=== PATIENT | female | born 1955 | race Caucasian/White ===

== ENCOUNTER 2020-07-21 22:00 | Emergency (ER) | payer MEDICARE, MEDICAID, SELFPAY ==
--- NOTE | ~2020-07-21 | CT_ITS ---
EXAMINATION: CT ANGIOGRAM NECK WITH CONTRAST CT ANGIOGRAM BRAIN WITH CONTRAST CLINICAL INFORMATION: Left-sided weakness. COMPARISON: None. TECHNIQUE: Test bolus sequences followed by intravenous administration 70 mL of Omnipaque 350. Helical imaging was performed in the axial plane from the thoracic inlet to the skull vertex. Delayed postcontrast imaging of the head was also performed. The data was processed at the photonics engineering technologist workstation for generation of MIP sequences. Angled MIPs and volume rendered reformatted images were also generated at an offline 3D workstation. Stenoses are assessed in accordance with NASCET criteria unless otherwise indicated. This CT examination was performed using dose optimization techniques as appropriate, variously including the following: *Automated exposure control *Adjustment of mA and/or kV according to patient size (this includes techniques or standardized protocols for targeted exams where dose is matched to indication/reason for exam; i.e. extremities or head) *Use of iterative reconstruction technique DLP: 1835 mGy-cm FINDINGS: Head CT: There is hypoattenuation in the right inferior cerebellum compatible with evolving infarct. Additional area of hypoattenuation is seen in the right posterior parietotemporal region. Background changes of chronic microangiopathy are seen in the cerebral white matter. There is no abnormal enhancement. 534 intensity The visualized paranasal sinuses and mastoid air cells are clear. Neck CTA: The main pulmonary artery is dilated compatible pulmonary arterial hypertension. The aortic arch and great vessel origins are patent. The common carotid arteries are difficult to evaluate due to significant motion artifact in addition to photon starvation artifact. The common carotid arteries appear grossly patent and are retropharyngeal in course. The carotid bifurcations are not well evaluated however, the cervical internal carotid arteries are patent along their cervical course. The lower portions of the vertebral arteries are not well evaluated however, more superiorly, the vertebral arteries are patent. Head CTA: No proximal vessel occlusion is seen. A small focus of thrombotic occlusion is seen within the distal right M2 segment (series 7 image 236). MCA collaterals otherwise appear symmetric. The ACAs appear patent. Both vertebral arteries and basilar artery appear normal. The aluminum siding installer appear normal. The right anterior inferior cerebellar artery is not well opacified. No aneurysm is seen. Non-vascular findings: The cervical soft tissues are grossly within normal limits. Multilevel degenerative changes are seen within the spine. There is no consolidation the upper lungs. A prominent right suprahilar lymph node is seen. CT/CT angio head neck stroke IMPRESSION: Evolving acute infarct in the right inferior cerebellum and in the right posterior parietal temporal lobe, better seen on the noncontrast head CT performed just prior. No large vessel occlusion is seen. A small focus of occlusion is seen involving the right distal M2 segment. The right anterior inferior cerebellar artery is not definitively opacified. This critical result was discussed with Dr. Griffiths on 07/21/2020 11:12 PM, and it was ascertained that the content and urgency of the report was understood at the time of direct communication.
--- NOTE | ~2020-07-21 | XR_ITS ---
EXAMINATION: XR CHEST CLINICAL INFORMATION: Shortness of breath COMPARISON: None TECHNIQUE: Frontal view of the chest was obtained. FINDINGS: The lungs are hyperinflated. There are mild, somewhat streaky opacities towards the bilateral lung bases. No evidence of pneumothorax or significant pleural effusion. The bilateral vignesh are prominent suspicious for dilated pulmonary arteries. Cardiac silhouette is mildly enlarged. Calcification is present at the aortic arch. No acute osseous findings are seen. XR/XR chest 1V IMPRESSION: Prominent central pulmonary vasculature suspicious for pulmonary hypertension. Mild streaky bibasilar opacities suggestive of subsegmental atelectasis.
--- NOTE | ~2020-07-21 | CT_ITS ---
EXAMINATION: CT HEAD WITHOUT CONTRAST (STROKE PROTOCOL) CLINICAL INFORMATION: Stroke protocol. Left-sided weakness COMPARISON: None TECHNIQUE: Contiguous axial imaging was performed from the skull base to vertex without intravenous administration of contrast. This CT examination was performed using dose optimization techniques as appropriate, variously including the following: *Automated exposure control. *Adjustment of mA and/or kV according to patient size (this includes techniques or standardized protocols for targeted exams where dose is matched to indication/reason for exam; i.e. extremities or head). *Use of iterative reconstruction technique. DLP: 934 mGy-cm FINDINGS: There is no evidence of acute intracranial hemorrhage, midline shift or mass effect. Focal area of loss of llanes-white matter differentiation is noted in the right posterior parietal occipital lobe and probably also involving the right temporal lobe. Focal area of hypoattenuation is noted in the right cerebellar hemisphere. There is probable somewhat hyperdense appearance of the distal M2 segment. The ventricles and cortical sulci are age-appropriate. No evidence of abnormal extra-axial fluid collection. The osseous calvarium is intact. The visualized paranasal sinuses are unremarkable. The calvarial soft tissues are unremarkable. CT/CT head for stroke IMPRESSION: 1. Findings highly concerning for right MCA and right anterior-inferior cerebellar artery territory. No evidence of significant mass effect at this time. No evidence of acute intracranial hemorrhage or midline shift. 2. CTA of the head and neck performed at the same time demonstrate occlusions of right MCA at the junction of M2 and M3 segment and right anterior-inferior cerebellar artery. The CTA head and neck will be reported separately. This critical result was discussed with Dr. Griffiths at 10:37 PM hours on 07/21/2020. It was ascertained that the content and urgency of the report was understood at the time of direct communication.
--- NOTE | 2020-07-21 22:07 | ECG_ITS ---
Test Reason : ?STROKE Blood Pressure : / mmHG Vent. Rate : 098 BPM Atrial Rate : 098 BPM P-R Int : 124 ms QRS Dur : 084 ms QT Int : 360 ms P-R-T Axes : 077 210 -53 degrees QTc Int : 459 ms Normal sinus rhythm Right superior axis deviation T wave abnormality, consider lateral ischemia Abnormal ECG No previous ECGs available Referred By: Luba Griffiths Electronically Signed By:FAVIOLA LLAMAS
[2020-07-21 22:12] LABS: Glucose, Whole Blood 104 mg/dL (60-115)
[2020-07-21 22:23] VITALS: BP 210/100
--- NOTE | 2020-07-21 22:27 | PC.NURSE ---
THIS RN SPOKE WITH PT'S SON, HE REPORTS HE WENT TO PT'S HOUSE, HE LIVES NEXT DOOR TO HER, TO CHECK ON HER AND HE FOUND HER ON THE FLOOR AROUND 2000 TONIGHT, UNKNOWN DOWNTIME. PT'S SON UNABLE TO GET HER OFF FLOOR, ATTEMPTED TO GET HELP TO LIFT HER AND COULD NOT, SO CALLED EMS. PER SON PT WAS COMPLAINING OF LE NUMBNESS, NOT SPECIFIC TO EITHER EXTREMITY. PTS SON REPORTS LAST SEEING PT YESTERDAY AROUND SAME TIME, STS SHE WAS GROGGY, NOT WITH IT , NOT EATING, AND ACTING OFF . SON ALSO REPORTS PT HAD A SERIOUS FALL X1 MONTH AGO BUT DID NOT SEEK MEDICAL ATTENTION.
--- NOTE | 2020-07-21 22:36 | ED_ITS ---
HPI - Neuro Symptoms/Deficit General Chief Complaint: Stroke Stated Complaint: weakness Time Seen by Provider: 07/21/20 22:06 History of Present Illness HPI Narrative: Patient is a 64-year-old female with a history diabetes, hypertension, smoking. Patient has been lost to the healthcare system for the last 10 years. Currently not taking any medication. Presented today with having sudden onset of left-sided weakness. Worse in the arm. Also paramedics noted a facial droop. Patient sent in for further evaluation. We are unsure the exact time of onset. When asked when the symptoms started. She said after she fell. When asked if she is aware when she fell we got multiple answers. Anywhere from 15:00 to 20:00. No revisit her until approximately 20:00 when the son arrived found her on the ground. They attempted to lift her up and found her to have weakness on the left side. Patient denies any chest pain shortness of breath. No coughing or congestion or upper respiratory symptoms. Patient noncompliant with medication. Patient's case discussed with [facility] for possible clot retrieval. Given the CTA finding. [facility] patient not a good candidate. Bon gagnon's case discussed with neuro radiology from [facility]. Neural radiologist at [facility] called back now he can see a M2 M3 lesion in the right MCA. The finding was relayed to Interventional neural Radiology at [facility]. . Patient to be transferred. A CD of the images will be provided. Patient is currently in critical condition. Related Data Allergies Allergy/AdvReac Type Severity Reaction Status Date / Time No Known Allergies Allergy Verified 07/21/20 22:06 Review of Systems Review of Systems: Constitutional: No Weight loss, No Fever, No Chills, No Night Sweats, No Fatigue, No Malaise ENT/Mouth: No Hearing loss, No Ear Pain, No Nasal Congestion, No Sinus Pain, No Hoarseness, No sore throat, No Rhinorrhea, No Swallowing Difficulty Eyes: No Eye Pain, No Swelling, No Redness, No Foreign Body, No Discharge, No Vision Changes Cardiovascular: No Chest Pain, No SOB, No Dyspnea on Exertion, No Orthopnea, No Edema, No Palpitations Respiratory: No Cough, No Sputum, No Wheezing, No Smoke Exposure, No Dyspnea Gastrointestinal: No Nausea, No Vomiting, No Diarrhea, No Constipation, No abdominal Pain, No Hematochezia, No Melena Genitourinary: no irregular bleeding, No Dysuria, No Urinary Frequency, No Hematuria, No Urinary Incontinence, No Urgency, No Flank Pain, No Urinary Flow Changes, No Hesitancy Musculoskeletal: No joint pain, No Myalgias, No Joint Swelling Skin: No Skin Lesions, No rash Neuro: Positive weakness on the left side Dizziness, No Headache Psych: No Anxiety/Panic, No Depression, No SI/HI/AH/VH, No Social Issues, Heme/Lymph: No Bruising, No Bleeding,No Lymphadenopathy Endocrine: No Polyuria, No Polydipsia, No Temperature Intolerance [facility] Past Medical History Medical History (Updated 07/21/20 @ 23:19 by Luba Griffiths MD) Diabetes HTN (hypertension) Thyroid nodule Social History Social History Advance Directives: No Advance Directives Information Provided: Yes Physical Exam 2 Vital Signs: Vital Signs: Last Vital Signs Temp 97.7 F 07/21/20 22:43 Pulse 98 07/21/20 22:43 Resp 28 H 07/21/20 22:43 BP 128/87 07/21/20 22:43 Pulse Ox 97 07/21/20 22:50 Body Mass Index 63.7 Appearance: Alert. Oriented X3. No acute distress. Eyes: Pupils equal, round and reactive to light. ENT: Pharynx normal. Neck: Normal inspection. Neck supple. No lymph nodes noted. No crepitus CVS: Normal heart rate and rhythm. Pulses normal. Normal S1 and S2 Respiratory: No respiratory distress. Breath sounds normal. No Wheezing. No rales Abdomen: Soft and nontender. No rigidity. No distention. good BS x4 Skin: Skin warm and dry. Normal skin color. Normal skin turgor. Extremities: No lower extremity edema. Neurovascular intact to all extremities. No Lacerations. No Rash Neuro: Oriented X 3. Significant left arm weakness. Unable to lift up arm against gravity. There is hand grasp. Patient has a left facial droop. Lower extremity approximately equal in strength. No sensory deficit. No slurred speech MDM - Neuro Symptoms/Deficit MDM Narrative Medical decision making narrative: CT scan of the head was grossly negative for any acute evidence of bleeding. Because we are unsure patient's time of onset anywhere from 3-10 p.m.. A PUC to be p.m. time scale. Patient is out of the window for tPA. Patient CTA was done as she has significant weakness in the left upper extremity consistent with an MCA stroke on the right. The CTA is currently pending. Lab Data Result diagrams: 07/21/20 22:40 07/21/20 22:40 Labs: Lab Results 07/21/20 07/21/20 07/21/20 Range/Units 22:04 22:40 22:40 WBC 11.5 H (4.8-10.8) X10*3/uL RBC 6.11 H (4.20-5.50) X10*6/uL Hgb 17.5 H (12.0-16.0) g/dl Hct 58.3 H (37-47) % MCV 95.4 (80-98) fL MCH 28.6 (27.0-33.0) pg MCHC 30.0 L (31.0-35.0) g/dl RDW 15.1 (11.0-16.0) % Plt Count 189 (160-400) X10*3/uL MPV 9.8 (9.4-12.3) fL Immature Gran % (Auto) 0.3 (0.0-0.4) % Neut % (Auto) 77.5 H (45-73) % Lymph % (Auto) 9.0 L (20-40) % Bland % (Auto) 12.5 H (2-11) % Eos % (Auto) 0.4 (0-4) % Baso % (Auto) 0.3 (0-2) % Lymph # (Auto) 1.0 L (1.2-4.9) X10*3/uL Bland # (Auto) 1.4 H (0.1-1.2) X10*3/uL Eos # (Auto) 0.1 (0.0-0.4) X10*3/uL Baso # (Auto) 0.0 (0.0-0.2) X10*3/uL Abs Immat Gran (auto) 0.03 (0.00-0.03) X10*3/uL Absolute Neuts (auto) 8.9 H (2.0-8.3) X10*3/uL Absolute Nucleated RBC 0.000 (0.0-0.012) X10*3/uL Nucleated RBC % (auto) 0.0 (0.0-0.2) /100WBC Sodium 142 (135-145) mmol/L Potassium 4.2 (3.3-5.1) mmol/L Chloride 101 (96-108) mmol/L Carbon Dioxide 33 H (22-29) mmol/L Anion Gap 12 (12-20) BUN 15 (9-16) mg/dL Creatinine 1.07 (0.5-1.4) mg/dL Estim Creat Clear Calc 71.6 Estimated GFR 51 POC Glucose 104 (60-115) mg/dL Random Glucose 117 H (60-115) mg/dL Calcium 9.3 (8.4-10.2) mg/dL Magnesium 1.9 (1.6-2.6) mg/dL Total Creatine Kinase 148 H (26-140) U/L COVID-19 (EVELINA) (Negative) COVID-19 Clin Com 07/21/20 Range/Units 22:41 WBC (4.8-10.8) X10*3/uL RBC (4.20-5.50) X10*6/uL Hgb (12.0-16.0) g/dl Hct (37-47) % MCV (80-98) fL MCH (27.0-33.0) pg MCHC (31.0-35.0) g/dl RDW (11.0-16.0) % Plt Count (160-400) X10*3/uL MPV (9.4-12.3) fL Immature Gran % (Auto) (0.0-0.4) % Neut % (Auto) (45-73) % Lymph % (Auto) (20-40) % Bland % (Auto) (2-11) % Eos % (Auto) (0-4) % Baso % (Auto) (0-2) % Lymph # (Auto) (1.2-4.9) X10*3/uL Bland # (Auto) (0.1-1.2) X10*3/uL Eos # (Auto) (0.0-0.4) X10*3/uL Baso # (Auto) (0.0-0.2) X10*3/uL Abs Immat Gran (auto) (0.00-0.03) X10*3/uL Absolute Neuts (auto) (2.0-8.3) X10*3/uL Absolute Nucleated RBC (0.0-0.012) X10*3/uL Nucleated RBC % (auto) (0.0-0.2) /100WBC Sodium (135-145) mmol/L Potassium (3.3-5.1) mmol/L Chloride (96-108) mmol/L Carbon Dioxide (22-29) mmol/L Anion Gap (12-20) BUN (9-16) mg/dL Creatinine (0.5-1.4) mg/dL Estim Creat Clear Calc Estimated GFR POC Glucose (60-115) mg/dL Random Glucose (60-115) mg/dL Calcium (8.4-10.2) mg/dL Magnesium (1.6-2.6) mg/dL Total Creatine Kinase (26-140) U/L COVID-19 (EVELINA) Negative (Negative) COVID-19 Clin Com See Note ECG Data Interpretation: Sinus pattern heart rate is 100 OK QRS QT within normal limits there is nonspecific diffuse T-wave flattening noted NIH Stroke Scale Internal: Initial- Upon Arrival Level of Consciousness: Alert Level of Consciousness Questions: Answers both questions correctly Level of Consciousness Commands: Performs both tasks correctly Best Gaze: Normal Visual: Partial hemianopia Facial Palsy: Normal Motor Arm (Right): No drift Motor Arm (Left): No effort against gravity Motor Leg (Right): No drift Motor Leg (Left): No drift Limb Ataxia: Present in one limb Sensory: Normal Best Language: No aphasia Dysarthia: Normal Extinction and Inattention: No abnormality Score: 5 Critical Care Time Critical Care Time Total Critical Care Time: 40 Attestation: I have personally provided 40 minutes of critical care time exc lusive of time spent on separately billable procedures. Time includes review of lab data, radiology results, discussion with consultants, and monitoring for potential decompensation. Interventions were performed as documented above Discharge Plan Discharge Clinical Impression: Cerebrovascular accident Patient Disposition: [facility] Transfer Details: Transfer to [facility]
[2020-07-21 22:43] VITALS: BP 128/87; PULSE 98; RESP 28; TEMP 36.5; O2SAT 63; BMI 63.7
[2020-07-21 22:47] LABS: MANUAL DIFF FLAG NO
[2020-07-21 22:48] LABS: Basophils Percent Auto 0.3 % (0-2); Eosinophils Absolute Auto 0.1 X10*3/uL (0.0-0.4); Eosinophils Percent Auto 0.4 % (0-4); Hemoglobin 17.5 g/dl (12.0-16.0); Imm Gran Abs Auto 0.03 X10*3/uL (0.00-0.03); Imm Gran Pct Auto 0.3 % (0.0-0.4); Mean Corpuscular Hemoglobin 28.6 pg (27.0-33.0); Mean Corpuscular Volume 95.4 fL (80-98); Mean Platelet Volume 9.8 fL (9.4-12.3); Monocytes Absolute Auto 1.4 X10*3/uL (0.1-1.2); Monocytes Percent Auto 12.5 % (2-11); Neutrophils Absolute Auto 8.9 X10*3/uL (2.0-8.3); Neutrophils Percent Auto 77.5 % (45-73); Platelet Count 189 X10*3/uL (160-400); Red Blood Count 6.11 X10*6/uL (4.20-5.50); Red Cell Distribution Width 15.1 % (11.0-16.0); White Blood Count 11.5 X10*3/uL (4.8-10.8)
[2020-07-21 22:49] LABS: Hematocrit 58.3 % (37-47)
[2020-07-21 22:50] VITALS: O2SAT 97
[2020-07-21 23:05] LABS: COVID-19 Test Negative (Negative); IDNOW Serial# 9DD0AD1C
[2020-07-21 23:12] LABS: Anion Gap 12 (12-20); Blood Urea Nitrogen 15 mg/dL (9-16); Calcium 9.3 mg/dL (8.4-10.2); Carbon Dioxide 33 mmol/L (22-29); Chloride 101 mmol/L (96-108); Creatinine Clr Calc Pharmacy 71.6; Estimated Glomerular Filt Rate 51; Glucose Random 117 mg/dL (60-115); Magnesium 1.9 mg/dL (1.6-2.6); Potassium 4.2 mmol/L (3.3-5.1); Sodium 142 mmol/L (135-145)
--- NOTE | 2020-07-21 23:14 | PC.NURSE ---
@[phone] dr singh request another call out to [facility] interventionalist, tx line called and nicolas said they were going to put the page out @[phone] [facility] tx line calls back and asks tos speak with dr francisco singh says this pt is accepted @ the er and to call ambulance for tx
[2020-07-21 23:23] LABS: Troponin-I High Sensitivity 174.3 ng/L (<3.5-17.0)
[2020-07-21 23:28] LABS: Prothrombin Time Whole Bld POC 14.9 sec (11.1-13.5); ~PT, ~INR - Anti Coag Clinic 1.2 (0.9-1.1)
[2020-07-21 23:28] LABS: Glucose Urine UA NEG (NEG); Leukocyte Esterase Urine 2+ (NEG); Nitrite Urine POS (NEG); UACC Culture Trigger YES; Urine Blood 2+ (NEG); Urine Ketones NEG (NEG); Urine Protein 2+ MG/DL (NEG-TRACE)
[2020-07-21 23:32] LABS: Appearance Urine HAZY; Color Urine YELLOW
[2020-07-21 23:34] VITALS: BP 162/106; PULSE 98; RESP 23; TEMP 37; O2SAT 100
[2020-07-21 23:35] LABS: WBC Urine 30-49 /HPF (0-4)
[2020-07-21 23:36] LABS: Bacteria Urine 3+ /LPF; Squamous Epithelial Cell Urine 1+ /LPF
[2020-07-21 23:39] VITALS: BP 143/87; PULSE 77; RESP 18; TEMP 36.6; O2SAT 96
== END 2020-07-21 23:50 | disposition short-term general hospital (02) ==
PROVIDERS: Emergency Provider Emergency Medicine Emergency Medical Services
DX: I63.9 Cerebral infarction, unspecified (principal); R53.1 Weakness; R29.705 NIHSS score 5; Z20.822 Contact with and (suspected) exposure to COVID-19; E11.9 Type 2 diabetes mellitus without complications; I10 Essential (primary) hypertension; F17.210 Nicotine dependence, cigarettes, uncomplicated; Z91.14 Patient's other noncompliance with medication regimen
CPT/HCPCS: 36415; 70450; 70496; 70498; 71045; 80048; 81001; 81003; 82550; 82947; 83735; 84484; 85025; 85610; 87086; 87088; 87186; 87635; 93005; 99285; 99291

== ENCOUNTER 2020-11-03 09:09 | Inpatient (IN) | payer MEDICARE, MEDICAID, SELFPAY ==
[2020-11-03] VITALS (8 sets, daily range): BP systolic 118–166; BP diastolic 49–73; PULSE 76–100; RESP 18–28; TEMP 35.8–37.1; O2SAT 90–97; BMI 52.9
--- NOTE | ~2020-11-03 | CT_ITS ---
EXAMINATION: CT ABDOMEN AND PELVIS WITHOUT CONTRAST CLINICAL INFORMATION: Blood loss and abdominal pain COMPARISON: None TECHNIQUE: Multidetector volumetric imaging was performed from the superior aspect of the liver through the pubic symphysis. Sagittal and coronal reformatted images were obtained on the technologist's workstation. This CT examination was performed using dose optimization techniques as appropriate, variously including the following: *Automated exposure control *Adjustment of mA and/or kV according to patient size (this includes techniques or standardized protocols for targeted exams where dose is matched to indication/reason for exam; i.e. extremities or head) *Use of iterative reconstruction technique DLP: 1438 mGy-cm FINDINGS: LUNG BASES: Small bilateral pleural effusions with adjacent compressive atelectasis at the posterior, dependent portions of the lower lobes. LIVER, GALLBLADDER, AND BILIARY TREE: The liver is normal in size, shape, and attenuation. No focal hepatic lesion or biliary ductal dilatation is present. Thin calcification lines portions of the gallbladder wall. The gallbladder is well-distended without evidence of wall thickening or pericholecystic inflammatory changes. PANCREAS: Unremarkable. SPLEEN: Unremarkable. ADRENAL GLANDS: Unremarkable. KIDNEYS AND URETERS: Atrophic appearance of the right kidney with areas of cortical thinning. Suspect underlying low-density lesions also associated with the right kidney although the noncontrast technique limits assessment. Normal size of the left kidney with a lobulated surface contour, also suggesting possible underlying cystic lesions. Moderate left perinephric stranding. No evidence of hydronephrosis or hydroureter bilaterally. BLADDER: Unremarkable. GASTROINTESTINAL TRACT: Large stool ball within the rectal vault. Large stool burden throughout the entirety of the colon. Prominent submucosal fat deposition within the cecum suggestive of chronic inflammation. The appendix is unremarkable. No evidence of bowel obstruction. ABDOMINAL WALL: Areas of soft tissue density within the fat involving the anterior abdominal wall, possibly injection sites. Diastases rectus. No significant body wall hernia. Body wall edema. LYMPH NODES: No lymphadenopathy within the abdomen or pelvis by CT criteria. VASCULAR: Atherosclerosis abdominal aorta without evidence of aneurysm. The IVC is singular and right-sided. PELVIC VISCERA: There is an intrauterine device in place. Trace pelvic free fluid at the presacral space. OSSEOUS STRUCTURES: No acute or suspicious osseous abnormality. CT/CT abdomen pelvis wo con IMPRESSION: 1. No acute findings within the abdomen or pelvis. No intra-abdominal or pelvic hematomas. 2. Evidence of third spacing. 3. Constipation and possible fecal impaction at the level of the rectum. 4. Moderate left perinephric stranding of uncertain etiology. The right kidney is atrophic. Possible underlying low-density lesions within the renal cortices, however noncontrast technique limits assessment. Consider follow-up with renal ultrasound for further assessment. 5. 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 This is a risk factor for the development of gallbladder malignancy. 6. Possible volume overload with small pleural effusions, body wall edema and trace pelvic free fluid. 7. Other chronic and nonacute findings as above.
--- NOTE | ~2020-11-03 | XR_ITS ---
EXAMINATION: XR CHEST CLINICAL INFORMATION: SOB COMPARISON: None TECHNIQUE: Frontal view of the chest was obtained. FINDINGS: There is mild cardiomegaly. Pulmonary vascularity is normal. There is patchy opacity left lung base with left pleural effusion or thickening. Rest of the lungs are clear. No gross bony abnormality seen. XR/XR chest 1V IMPRESSION: Patchy opacity left lung base likely atelectasis. There is blunting of left CP angle from pleural thickening or pleural effusion.
--- NOTE | ~2020-11-03 | CT_ITS ---
EXAMINATION: CTA CHEST PE STUDY CLINICAL INFORMATION: r/o pulm embolism, sob COMPARISON: Abdominal film earlier today TECHNIQUE: Prior to contrast administration, noncontrast localization images were obtained. After the administration of 84 mL of Omnipaque 350 IV contrast, contiguous thin slice helical images were obtained through the thorax. Reformatted MIP images in the coronal and sagittal planes were obtained at the acquisition workstation. This CT examination was performed using dose optimization techniques as appropriate, variously including the following: *Automated exposure control *Adjustment of mA and/or kV according to patient size (this includes techniques or standardized protocols for targeted exams where dose is matched to indication/reason for exam; i.e. extremities or head) *Use of iterative reconstruction technique DLP: 594 mGy-cm. FINDINGS: The bolus timing on this study was acceptable for visualization of the pulmonary arterial tree. There are no intraluminal pulmonary arterial filling defects present to suggest acute pulmonary embolism. The lungs are clear patient of the lung parenchyma is limited due to body habitus and motion. There is dependent atelectasis and/or consolidation at the lung bases. Areas of mosaic perfusion are present more so in the upper lobes. No dense consolidation otherwise. Small bilateral pleural effusions. There is no evidence for pneumothorax. The heart is normal in size. No evidence of ventricular septal bowing or right heart strain. Great vessels are normal. Otherwise the mediastinum is unremarkable. There is no pericardial effusion or pericardial thickening. Limited evaluation of the upper abdominal viscera demonstrates a distended gallbladder but is seen on the dedicated abdominal CT scan from earlier today. CT/CT angio chest PE protocol IMPRESSION: No evidence for acute pulmonary emboli. Mosaic perfusion and basilar dependent atelectatic change. VTE: Negative
--- NOTE | 2020-11-03 10:02 | ECG_ITS ---
Test Reason : DYSPNEA Blood Pressure : / mmHG Vent. Rate : 088 BPM Atrial Rate : 088 BPM P-R Int : 126 ms QRS Dur : 094 ms QT Int : 398 ms P-R-T Axes : 086 072 046 degrees QTc Int : 481 ms Normal sinus rhythm T wave abnormality, consider anterior ischemia Prolonged QT Abnormal ECG When compared with ECG of 21-JUL-2020 22:42, Questionable change in QRS axis T wave inversion no longer evident in Inferior leads Nonspecific T wave abnormality, worse in Lateral leads Referred By: Luba Griffiths Electronically Signed By:MAX WEEMS
--- NOTE | 2020-11-03 10:28 | ED_ITS ---
HPI - SOB/Dyspnea General Chief Complaint: Dyspnea Stated Complaint: SOB,LOW O2SAT IN THE 80'S PER EMS FROM SN[facility] Time Seen by Provider: 11/03/20 09:29 History of Present Illness HPI Narrative: Patient is a 64-year-old female with a history of COPD. History of CVA. Patient is already immunized for COVID. Has a history of baseline stroke. Patient is unable to move her left side. Presented today because detention wants her to be evaluated for additional help for psychiatric reasons. Patient states that she does not want a live no more. Patient baseline is on 2 L of oxygen at home. Noted by EMS to have a low oxygenation. On EMS arrival patient was not on oxygen. No coughing or congestion or upper respiratory symptoms. No diaphoresis. No new leg swelling. Positive chronic leg wound to the right leg. No diaphoresis. Patient claims she is always short of breath. Not any more than usual. Patient is from home Related Data Home Medications Medication Instructions Recorded Confirmed albuterol sulfate 90 mcg/actuation 2 puff INHALATION Q4-6H PRN 11/03/20 11/03/20 aerosol inhaler (ProAir HFA) ascorbic acid (vitamin C) 500 mg 250 mg PO DAILY 11/03/20 11/03/20 tablet (Vitamin C) cetirizine 1 mg/mL oral solution 5 mg PO DAILY PRN 11/03/20 11/03/20 melatonin 5 mg tablet 5 mg PO BEDTIME PRN 11/03/20 11/03/20 multivitamin 1 tab PO DAILY 11/03/20 11/03/20 olanzapine 2.5 mg tablet 2.5 mg PO BEDTIME 11/03/20 11/03/20 ondansetron 8 mg disintegrating 8 mg PO DAILY PRN 11/03/20 11/03/20 tablet polyethylene glycol 3350 17 gram 17 g PO DAILY 11/03/20 11/03/20 oral powder packet (Miralax) sennosides 8.6 mg tablet (senna) 17.2 mg PO BEDTIME 11/03/20 11/03/20 warfarin 1 mg tablet 7 mg PO DAILY 11/03/20 11/03/20 Allergies Allergy/AdvReac Type Severity Reaction Status Date / Time No Known Allergies Allergy Verified 07/21/20 22:06 Review of Systems Review of Systems: Positive shortness of breath PMFSH Past Medical History Attestation statement: The following information was validated with the patient. Medical History Diabetes HTN (hypertension) Thyroid nodule Social History Social History Advance Directives: Yes Advance Directives on File: No Physical Exam Vital Signs: Vital Signs: Last Vital Signs Temp 97.8 F 11/03/20 15:09 Pulse 81 11/03/20 15:09 Resp 18 11/03/20 15:09 BP 166/71 H 11/03/20 15:09 Pulse Ox 97 11/03/20 15:09 Oxygen Flow Rate 4 11/03/20 09:19 Body Mass Index 52.9 Appearance: Alert. Oriented X3. No acute distress. Eyes: Pupils equal, round and reactive to light. ENT: Pharynx normal. Neck: Normal inspection. Neck supple. No lymph nodes noted. No crepitus CVS: Normal heart rate and rhythm. Pulses normal. Normal S1 and S2 Respiratory: No respiratory distress. Diminished breath sounds bilaterally. No Wheezing. No rales. Abdomen: Soft and nontender. No rigidity. No distention. good BS x4 Skin: Skin warm and dry. Normal skin color. Normal skin turgor. Extremities: 2+ pitting edema. Neurovascular intact to all extremities. No La cerations. Wound VAC in place in right leg. Neuro: Oriented X 3. No motor deficit. No sensory deficit. Moving all extermities. No slurred speech MDM - SOB/Dyspnea MDM Narrative Medical decision making narrative: Patient's hemoglobin dropped from 17 to approximately 9. Question etiology. Rectal exam showed brown stool that was heme-negative. CT scan of the abdomen did not show any acute fluid collection. The abdomen exam is soft. Question etiology. Question secondary to hemoconcentration. Patient's COVID test is negative. Chest x-ray did not show any large focal infiltrate. Her BNP is elevated but approximately baseline. No evidence for congestive heart failure. Question mild COPD. Patient baseline is on 2 L of oxygen now requiring 4 L of oxygen satting 90%. Will admit patient for further evaluation of the change in hemoglobin. Patient will require psychiatric evaluation as well. Lactate is 0.6 is no evidence for sepsis. Patient is to be admitted. Lab Data Result diagrams: 11/03/20 13:56 11/03/20 10:42 Labs: Lab Results 11/03/20 11/03/20 11/03/20 Range/Units 10:24 10:42 10:42 WBC 7.0 (4.8-10.8) X10*3/uL RBC 3.88 L D (4.20-5.50) X10*6/uL Hgb 9.1 L D (12.0-16.0) g/dl Hct 32.9 L D (37-47) % MCV 84.8 (80-98) fL MCH 23.5 L (27.0-33.0) pg MCHC 27.7 L (31.0-35.0) g/dl RDW 18.2 H (11.0-16.0) % Plt Count 271 D (160-400) X10*3/uL MPV 9.1 L (9.4-12.3) fL Immature Gran % (Auto) 0.3 (0.0-0.4) % Neut % (Auto) 64.7 (45-73) % Lymph % (Auto) 22.2 (20-40) % Baldwin % (Auto) 11.4 H (2-11) % Eos % (Auto) 1.0 (0-4) % Baso % (Auto) 0.4 (0-2) % Lymph # (Auto) 1.5 (1.2-4.9) X10*3/uL Baldwin # (Auto) 0.8 (0.1-1.2) X10*3/uL Eos # (Auto) 0.1 (0.0-0.4) X10*3/uL Baso # (Auto) 0.0 (0.0-0.2) X10*3/uL Abs Immat Gran (auto) 0.02 (0.00-0.03) X10*3/uL Absolute Neuts (auto) 4.5 (2.0-8.3) X10*3/uL Absolute Nucleated RBC 0.000 (0.0-0.012) X10*3/uL Nucleated RBC % (auto) 0.0 (0.0-0.2) /100WBC Sodium 140 (135-145) mmol/L Potassium 4.9 (3.3-5.1) mmol/L Chloride 100 (96-108) mmol/L Carbon Dioxide 32 H (22-29) mmol/L Anion Gap 13 (12-20) BUN 13 (9-16) mg/dL Creatinine 0.70 (0.5-1.4) mg/dL Estim Creat Clear Calc 100.5 Estimated GFR > 60 Random Glucose 122 H (60-115) mg/dL Estimat Average Glucose mg/dL Hemoglobin A1c % % Lactic Acid (0.5-2.0) mmol/L Calcium 8.6 D (8.4-10.2) mg/dL Iron 24 L (30-160) mcg/dL TIBC 388 (228-428) mcg/dL % Saturation 6 L (15-50) % Unsat Iron Binding 364 ug/dL Ferritin 38 (10-250) ng/mL Troponin I High Sens (<3.5-17.0) ng/L B-Natriuretic Peptide (<100) pg/mL Stool Occult Blood (NEGATIVE) Ethyl Alcohol mg/dL COVID-19 (EVELINA) Negative (Negative) COVID-19 Clin Com See Note 11/03/20 11/03/20 11/03/20 Range/Units 10:42 10:42 10:42 WBC (4.8-10.8) X10*3/uL RBC (4.20-5.50) X10*6/uL Hgb (12.0-16.0) g/dl Hct (37-47) % MCV (80-98) fL MCH (27.0-33.0) pg MCHC (31.0-35.0) g/dl RDW (11.0-16.0) % Plt Count (160-400) X10*3/uL MPV (9.4-12.3) fL Immature Gran % (Auto) (0.0-0.4) % Neut % (Auto) (45-73) % Lymph % (Auto) (20-40) % Baldwin % (Auto) (2-11) % Eos % (Auto) (0-4) % Baso % (Auto) (0-2) % Lymph # (Auto) (1.2-4.9) X10*3/uL Baldwin # (Auto) (0.1-1.2) X10*3/uL Eos # (Auto) (0.0-0.4) X10*3/uL Baso # (Auto) (0.0-0.2) X10*3/uL Abs Immat Gran (auto) (0.00-0.03) X10*3/uL Absolute Neuts (auto) (2.0-8.3) X10*3/uL Absolute Nucleated RBC (0.0-0.012) X10*3/uL Nucleated RBC % (auto) (0.0-0.2) /100WBC Sodium (135-145) mmol/L Potassium (3.3-5.1) mmol/L Chloride (96-108) mmol/L Carbon Dioxide (22-29) mmol/L Anion Gap (12-20) BUN (9-16) mg/dL Creatinine (0.5-1.4) mg/dL Estim Creat Clear Calc Estimated GFR Random Glucose (60-115) mg/dL Estimat Average Glucose 97 mg/dL Hemoglobin A1c % 5.0 % Lactic Acid (0.5-2.0) mmol/L Calcium (8.4-10.2) mg/dL Iron (30-160) mcg/dL TIBC (228-428) mcg/dL % Saturation (15-50) % Unsat Iron Binding ug/dL Ferritin (10-250) ng/mL Troponin I High Sens 50.1 H* D (<3.5-17.0) ng/L B-Natriuretic Peptide 1124 H (<100) pg/mL Stool Occult Blood (NEGATIVE) Ethyl Alcohol < 10 mg/dL COVID-19 (EVELINA) (Negative) COVID-19 Clin Com 11/03/20 11/03/20 Range/Units 12:06 12:10 WBC (4.8-10.8) X10*3/uL RBC (4.20-5.50) X10*6/uL Hgb (12.0-16.0) g/dl Hct (37-47) % MCV (80-98) fL MCH (27.0-33.0) pg MCHC (31.0-35.0) g/dl RDW (11.0-16.0) % Plt Count (160-400) X10*3/uL MPV (9.4-12.3) fL Immature Gran % (Auto) (0.0-0.4) % Neut % (Auto) (45-73) % Lymph % (Auto) (20-40) % Baldwin % (Auto) (2-11) % Eos % (Auto) (0-4) % Baso % (Auto) (0-2) % Lymph # (Auto) (1.2-4.9) X10*3/uL Baldwin # (Auto) (0.1-1.2) X10*3/uL Eos # (Auto) (0.0-0.4) X10*3/uL Baso # (Auto) (0.0-0.2) X10*3/uL Abs Immat Gran (auto) (0.00-0.03) X10*3/uL Absolute Neuts (auto) (2.0-8.3) X10*3/uL Absolute Nucleated RBC (0.0-0.012) X10*3/uL Nucleated RBC % (auto) (0.0-0.2) /100WBC Sodium (135-145) mmol/L Potassium (3.3-5.1) mmol/L Chloride (96-108) mmol/L Carbon Dioxide (22-29) mmol/L Anion Gap (12-20) BUN (9-16) mg/dL Creatinine (0.5-1.4) mg/dL Estim Creat Clear Calc Estimated GFR Random Glucose (60-115) mg/dL Estimat Average Glucose mg/dL Hemoglobin A1c % % Lactic Acid 0.6 (0.5-2.0) mmol/L Calcium (8.4-10.2) mg/dL Iron (30-160) mcg/dL TIBC (228-428) mcg/dL % Saturation (15-50) % Unsat Iron Binding ug/dL Ferritin (10-250) ng/mL Troponin I High Sens (<3.5-17.0) ng/L B-Natriuretic Peptide (<100) pg/mL Stool Occult Blood NEGATIVE (NEGATIVE) Ethyl Alcohol mg/dL COVID-19 (EVELINA) (Negative) COVID-19 Clin Com Discharge Plan Discharge Clinical Impression: Weakness, Hemoglobin drop Patient Disposition: Admitted As Inpatient
[2020-11-03 10:51] LABS: Basophils Percent Auto 0.4 % (0-2); Eosinophils Absolute Auto 0.1 X10*3/uL (0.0-0.4); Hematocrit 32.9 % (37-47); Hemoglobin 9.1 g/dl (12.0-16.0); Imm Gran Abs Auto 0.02 X10*3/uL (0.00-0.03); Imm Gran Pct Auto 0.3 % (0.0-0.4); Lymphocytes Absolute Auto 1.5 X10*3/uL (1.2-4.9); Lymphocytes Percent Auto 22.2 % (20-40); MANUAL DIFF FLAG NO; Mean Corpuscular HGB Conc 27.7 g/dl (31.0-35.0); Mean Corpuscular Hemoglobin 23.5 pg (27.0-33.0); Mean Corpuscular Volume 84.8 fL (80-98); Mean Platelet Volume 9.1 fL (9.4-12.3); Monocytes Absolute Auto 0.8 X10*3/uL (0.1-1.2); Monocytes Percent Auto 11.4 % (2-11); Neutrophils Absolute Auto 4.5 X10*3/uL (2.0-8.3); Neutrophils Percent Auto 64.7 % (45-73); Platelet Count 271 X10*3/uL (160-400); Red Blood Count 3.88 X10*6/uL (4.20-5.50); Red Cell Distribution Width 18.2 % (11.0-16.0)
[2020-11-03 11:07] LABS: Ethanol < 10 mg/dL
[2020-11-03 11:08] LABS: Anion Gap 13 (12-20); Blood Urea Nitrogen 13 mg/dL (9-16); Calcium 8.6 mg/dL (8.4-10.2); Carbon Dioxide 32 mmol/L (22-29); Chloride 100 mmol/L (96-108); Creatinine Clr Calc Pharmacy 100.5; Estimated Glomerular Filt Rate > 60; Glucose Random 122 mg/dL (60-115); Potassium 4.9 mmol/L (3.3-5.1); Sodium 140 mmol/L (135-145)
[2020-11-03 11:11] LABS: COVID-19 Test Negative (Negative); IDNOW Serial# 55D5AD1C
[2020-11-03 11:16] LABS: B Type Natriuretic Peptide 1124 pg/mL (<100); Troponin-I High Sensitivity 50.1 ng/L (<3.5-17.0)
[2020-11-03 12:13] LABS: OBS Int Ctl Valid YES; OBS1 NEGATIVE (NEGATIVE)
[2020-11-03 12:25] LABS: Lactic Acid 0.6 mmol/L (0.5-2.0)
--- NOTE | 2020-11-03 13:25 | PM.IMHP ---
History of Present Illness Date of Service: 11/03/20 Attending physician on admission: Axel Deras Chief Complaint: Oxygen sats low, anemia. 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 Says says and has wound VAC. Patient does now the whole information about her history in [facility] we have requested the records. Current admission was requested as per ED provider for possible acute blood loss, also mild CHF. As my discussion with the patient patient was sent to the hospital because of desaturation in the longterm she does not how much she was desaturating. Otherwise she says that her baseline short of breath gaming she is not worse, denies any orthopnea or Pnd. She has some leg swelling. She does not know if she gained any weight. Patient denies any nausea vomiting abdominal pain or melena as well as coffee-ground, she also denies any maranda bleeding recently. Denies any chest pain or nausea vomiting or weakness or numbness or cough or phlegm Lab imaging EKG personally reviewed and interpreted: Patient has susan drop in H&H from 17.5-8.9 range. Troponin: 174 and repeat 50 range respectively EKG seems unchanged from before ct abdomen: Shows constipation,? Incidental Perinephric area stranding right-sided Shows pleural effusion and body wall edema. Chest x-ray: Seems negative, except for possible atelectasis Social: Seems functionally declined chronically sick will looking woman, ex-smoker she had the at least the 50 pack year history as per the patient, denies any recreational drugs or alcohol use. Review of Systems Review of Systems: Yes all other systems are reviewed and are negative [facility] Medical History Diabetes HTN (hypertension) Thyroid nodule Pertinent family history: Patient says the the history of [place] in father. Social History Household Members: Other Housing: Long Term Do you presently have visiting nurse or other home services: Yes Patient Tobacco Use Status: Former Tobacco user Use of substances other than those prescribed or required for medical reasons: No Have you been hit, kicked, punched, or otherwise hurt by someone within the past year? If so, by whom?: No Do you feel safe in your current relationship?: No Current Relationship Is there a partner from a previous relationship who is making you feel unsafe now?: No Are you made to feel afraid or neglected: No Advance Directives: Yes Advance Directives on File: No Advance Directives Date on File: 11/03/20 Do you have thoughts of harming others: None Do you have a plan to hurt others: No Plan Recently lost weight without trying: Unsure Nutrition Risks: No Nutritional Risk Patient : No : No Poor oral hygiene: No Meds Allergies Allergy/AdvReac Type Severity Reaction Status Date / Time No Known Allergies Allergy Verified 07/21/20 22:06 Active Medications: Current Medications Albuterol Sulfate (Albuterol Sulfate 90 Mcg 8 Gm Inhaler) 2 puff INHALE Q4H PRN PRN Reason: Wheezing Albuterol/Ipratropium (Albuterol/Iprat 2.5/0.5mg 3 Ml Ampul.Neb) 3 ml INHALE Q4H ONEL Albuterol/Ipratropium (Albuterol/Iprat 2.5/0.5mg 3 Ml Ampul.Neb) 3 ml INHALE Q4H PRN PRN Reason: Shortness of Breath Ascorbic Acid (Ascorbic Acid 250 Mg Tablet) 250 mg PO DAILY [facility] Furosemide (Furosemide 20 Mg/2 Ml Vial) 20 mg IVPUSH BID [facility]; Protocol Multivitamins/Vitamin C (Multivitamin Tablet) 1 tab PO DAILY [facility] Non-Formulary Medication (Cetirizine) 5 mg PO DAILY PRN PRN Reason: Allergic Reaction Non-Formulary Medication (Melatonin) 5 mg PO BEDTIME PRN PRN Reason: Insomnia Olanzapine (Olanzapine 2.5 Mg Tablet) 2.5 mg PO BEDTIME [facility] Pantoprazole Sodium (Pantoprazole Sodium 40 Mg/10 Ml Vial) 40 mg IVPUSH DAILY [facility] Pharmacy Consult (Consult Rx Perform Med Rec) 1 each MISCELLANE ONCE PRN PRN Reason: Consult order Home Medications Medication Instructions Recorded Confirmed Last Taken Type albuterol sulfate 90 mcg/actuation 2 puff INHALATION Q4-6H PRN 11/03/20 11/03/20 Unknown History aerosol inhaler (ProAir HFA) ascorbic acid (vitamin C) 500 mg 250 mg PO DAILY 11/03/20 11/03/20 Unknown History tablet (Vitamin C) cetirizine 1 mg/mL oral solution 5 mg PO DAILY PRN 11/03/20 11/03/20 Unknown History melatonin 5 mg tablet 5 mg PO BEDTIME PRN 11/03/20 11/03/20 Unknown History multivitamin 1 tab PO DAILY 11/03/20 11/03/20 Unknown History olanzapine 2.5 mg tablet 2.5 mg PO BEDTIME 11/03/20 11/03/20 Unknown History ondansetron 8 mg disintegrating 8 mg PO DAILY PRN 11/03/20 11/03/20 Unknown History tablet polyethylene glycol 3350 17 gram 17 g PO DAILY 11/03/20 11/03/20 Unknown History oral powder packet (Miralax) sennosides 8.6 mg tablet (senna) 17.2 mg PO BEDTIME 11/03/20 11/03/20 Unknown History warfarin 1 mg tablet 7 mg PO DAILY 11/03/20 11/03/20 Unknown History Physical Exam Vital Signs and Narrative: Vital Signs: Last Vital Signs Temp 98.8 F 11/03/20 09:19 Pulse 80 11/03/20 12:00 Resp 28 H 11/03/20 12:00 BP 138/49 L 11/03/20 12:00 Pulse Ox 92 11/03/20 12:00 Oxygen Flow Rate 4 11/03/20 09:19 Body Mass Index 52.9 Physical exam: Appearance: Alert.? Oriented X3.? ch sick looking Eyes: Pupils equal, round and reactive to light.? Sclera nonicteric.? ENT: Pharynx normal.? Moist mucous membranes. cvs: rrr, [id number] , no murmur, ? jvd equivocal res: Air entry seems fair, diminished at bases add has few crackles at bases. abd: no rebound or guarding ,nt, bs present. ext pulses present , no cyanosis ,1+ edema, right leg wound VAC seems clean neuro: axo3 , nonfocal. Results Labs CBC and Chem 7: 11/03/20 18:54 11/03/20 10:42 Labs: Laboratory Results - last 24 hr 11/03/20 11/03/20 11/03/20 10:24 10:42 10:42 MCV 84.8 MCH 23.5 L MCHC 27.7 L RDW 18.2 H Plt Count 271 D MPV 9.1 L Immature Gran % (Auto) 0.3 Neut % (Auto) 64.7 Lymph % (Auto) 22.2 [place] % (Auto) 11.4 H Eos % (Auto) 1.0 Baso % (Auto) 0.4 Lymph # (Auto) 1.5 [place] # (Auto) 0.8 Eos # (Auto) 0.1 Baso # (Auto) 0.0 Abs Immat Gran (auto) 0.02 Absolute Neuts (auto) 4.5 Absolute Nucleated RBC 0.000 Nucleated RBC % (auto) 0.0 Anion Gap 13 Estim Creat Clear Calc 100.5 Estimated GFR > 60 Random Glucose 122 H Lactic Acid Calcium 8.6 D Troponin I High Sens B-Natriuretic Peptide Stool Occult Blood Ethyl Alcohol COVID-19 ([facility]ELINA) Negative COVID-[employer] Com See Note 11/03/20 11/03/20 11/03/20 10:42 10:42 12:06 MCV MCH MCHC RDW Plt Count MPV Immature Gran % (Auto) Neut % (Auto) Lymph % (Auto) [place] % (Auto) Eos % (Auto) Baso % (Auto) Lymph # (Auto) [place] # (Auto) Eos # (Auto) Baso # (Auto) Abs Immat Gran (auto) Absolute Neuts (auto) Absolute Nucleated RBC Nucleated RBC % (auto) Anion Gap Estim Creat Clear Calc Estimated GFR Random Glucose Lactic Acid Calcium Troponin I High Sens 50.1 H* D B-Natriuretic Peptide 1124 H Stool Occult Blood NEGATIVE Ethyl Alcohol < 10 COVID-19 (EVELINA) COVID-[employer] 11/03/20 12:10 MCV MCH MCHC RDW Plt Count MPV Immature Gran % (Auto) Neut % (Auto) Lymph % (Auto) [place] % (Auto) Eos % (Auto) Baso % (Auto) Lymph # (Auto) [place] # (Auto) Eos # (Auto) Baso # (Auto) Abs Immat Gran (auto) Absolute Neuts (auto) Absolute Nucleated RBC Nucleated RBC % (auto) Anion Gap Estim Creat Clear Calc Estimated GFR Random Glucose Lactic Acid 0.6 Calcium Troponin I High Sens B-Natriuretic Peptide Stool Occult Blood Ethyl Alcohol COVID-19 (EVELINA) COVID-19 Clin Com Imaging Radiologist's Impressions: Impressions Chest X-Ray 11/03/20 10:02 IMPRESSION: Patchy opacity left lung base likely atelectasis. There is blunting of left CP angle from pleural thickening or pleural effusion. Assessment and Plan (1) Hemoglobin drop: Status: Acute (2) COPD (chronic obstructive pulmonary disease): Status: Acute 1. Acute blood loss most likely: Unclear etiology Stool for occultblood negative Repeated H&H is similar range 8.9 Patient's hemoglobin was 7.8 to 8.4 on 10/15/2020in [facility] records which was obtained. Her H&H is seems seems to be improving than before. Patient denies any recent bleeding. 2.question of perinephric standing UA positive, urine culture, blood culture pending : Will add antibiotics IV ceftriaxone. 3.Possible mild CHF exacerbation: Considering her history of ?rv thrombus as per patient report Also patient has elevated BNP, edema, pleural effusion iv lasix, continue warfrain echo cardio eval 4.acute on chronic hypoxemic respiratory failure secondary to COPD execerbation and was on oxygen 2 L as per her report: Will add p.r.n. nebs and scheduled for now since she has atelectasis also. Will continue to monitor COVID negative Atelectasis gaming: Will add chest physio and incentive spirometry. annette miller noted -? mild hypercarbia /hypoxia continue nebs, added small dose iv steriod. cta added -if positive for P.E , then will need iv heparin moniter h/h if started on iv heparin 5. Patient has history DVT, hx of Rv thrombus : Her INR is subtherapeutic Has severe drop in H&H and has anemia continue warfarin for now 6. hx of cva and left sided Cva: continue warfarin goal inr between 2-3 DVT prophylaxis : warfarin , mech devices on the left leg since right leg has wound and wound VAC Above my add management and plan is discussed with the patient in detail length she understand and in agreement with the above plan including goal of care she is full code. Time spent 75 minutes Quality Stroke Does the patient have a stroke diagnosis?: No Reason for No Anti-thrombotic by Day Two: N/A - Med Ordered VTE Prior VTE?: Yes VTE Risk Level:: Medical - moderate - high VTE Device Contraindication: N/A - Device Ordered VTE Drug Contraindication: N/A - Med Ordered
[2020-11-03] MEDS: Furosemide 20 MG/2 ML VIAL IVPUSH (13:48)
[2020-11-03 13:51] LABS: Estimated Average Glucose 97 mg/dL; Iron 24 mcg/dL (30-160); Percent Iron Saturation 6 % (15-50); Total Iron Binding Capacity 388 mcg/dL (228-428); Unsaturated Iron Binding 364 ug/dL
[2020-11-03 14:10] LABS: Hematocrit 32.9 % (37-47); Hemoglobin 8.9 g/dl (12.0-16.0)
[2020-11-03 14:10] LABS: Ferritin 38 ng/mL (10-250)
[2020-11-03 14:13] LABS: Venous Blood Gas Refer to POC result
[2020-11-03 14:13] LABS: VBG Base Excess 16.8 mmol/L; VBG HCO3 42 mmol/L (22-26); VBG pCO2 57 mmHg; VBG pH 7.47 (7.32-7.43); VBG pO2 59 mmHg
[2020-11-03 14:16] LABS: INTERNATIONAL NORM RATIO 1.3 (0.9-1.1); Prothrombin Time 14.5 SEC (9.9-13.0)
[2020-11-03 14:54] LABS: Appearance Urine CLOUDY; Color Urine YELLOW; Glucose Urine UA NEG (NEG); Leukocyte Esterase Urine 1+ (NEG); Nitrite Urine POS (NEG); UACC Culture Trigger YES; Urine Blood NEG (NEG); Urine Ketones NEG (NEG); Urine Protein TRACE MG/DL (NEG-TRACE)
[2020-11-03 15:09] LABS: RBC Urine 0-2 /HPF (0)
[2020-11-03 15:10] LABS: Bacteria Urine 1+ /LPF; Mucus Urine 1+ /LPF; Renal Epithelial Cells Urine 1+ /LPF; Squamous Epithelial Cell Urine 3+ /LPF
[2020-11-03] MEDS: cefTRIAXone sodium 1 GM in 0.9 % Sodium Chloride 50 ML IV (17:43)
[2020-11-03] MEDS: polyethylene glycoL 3350 17 GM POWD.PACK PO (17:43)
[2020-11-03 17:58] LABS: INTERNATIONAL NORM RATIO 1.2 (0.9-1.1); Prothrombin Time 14.2 SEC (9.9-13.0)
[2020-11-03 18:00] LABS: PTT Heparin Drip 29.2 SEC (53-77.9)
[2020-11-03] MEDS: Warfarin Sodium 3 MG TABLET PO (18:00)
[2020-11-03] MEDS: Warfarin Sodium 4 MG TABLET PO (18:00)
[2020-11-03 18:09] LABS: D Dimer 537 NG/ML
[2020-11-03 19:04] LABS: Hematocrit 31.2 % (37-47); Hemoglobin 8.5 g/dl (12.0-16.0); Mean Corpuscular HGB Conc 27.2 g/dl (31.0-35.0); Mean Corpuscular Volume 84.6 fL (80-98); Mean Platelet Volume 9.1 fL (9.4-12.3); Platelet Count 246 X10*3/uL (160-400); Red Blood Count 3.69 X10*6/uL (4.20-5.50); Red Cell Distribution Width 18.2 % (11.0-16.0); White Blood Count 7.3 X10*3/uL (4.8-10.8)
[2020-11-03] MEDS: Warfarin Sodium 0.5 MG HALFTAB PO (19:13)
[2020-11-03] MEDS: predniSONE 20 MG TABLET 40 MG PO (19:13)
--- NOTE | 2020-11-03 19:44 | PC.NURSE ---
Upon admission to floor patient with wound vac dressing to right lower extremity, no wound vac currently in place. Nursing public message service supervisor made aware, suggests leave dressing in place for evaluation by wound care tomorrow. Pt with wound consult in place.
[2020-11-03] MEDS: iohexoL 350 MG/ML 100 ML INFUS..BTL IV (19:45)
[2020-11-03] MEDS: Docusate Sodium 100 MG CAPSULE PO (20:08)
[2020-11-03] MEDS: methylPREDNISolone Sod Succ 40 MG/ML VIAL 20 MG IVPUSH (20:08)
[2020-11-03] MEDS: OLANZapine 2.5 MG TABLET PO (20:08)
[2020-11-03] MEDS: Acetaminophen 325 MG TABLET 650 MG PO (20:12)
[2020-11-03] MEDS: Albuterol/Iprat 2.5/0.5MG 3 ML AMPUL.NEB INHALE (20:29)
[2020-11-04] VITALS (12 sets, daily range): BP systolic 130–157; BP diastolic 58–72; PULSE 71–89; RESP 16–17; TEMP 35.6–36.6; O2SAT 88–97; BMI 52.9
[2020-11-04 05:35] LABS: Hematocrit 32.1 % (37-47); Hemoglobin 8.8 g/dl (12.0-16.0); Mean Corpuscular HGB Conc 27.4 g/dl (31.0-35.0); Mean Corpuscular Hemoglobin 23.2 pg (27.0-33.0); Mean Corpuscular Volume 84.7 fL (80-98); Mean Platelet Volume 8.6 fL (9.4-12.3); Platelet Count 245 X10*3/uL (160-400); Red Blood Count 3.79 X10*6/uL (4.20-5.50); Red Cell Distribution Width 18.1 % (11.0-16.0); White Blood Count 5.1 X10*3/uL (4.8-10.8)
[2020-11-04 05:41] LABS: INTERNATIONAL NORM RATIO 1.3 (0.9-1.1); Prothrombin Time 14.8 SEC (9.9-13.0)
[2020-11-04 05:50] LABS: Anion Gap 11 (12-20); Blood Urea Nitrogen 12 mg/dL (9-16); Calcium 8.8 mg/dL (8.4-10.2); Carbon Dioxide 36 mmol/L (22-29); Chloride 99 mmol/L (96-108); Creatinine Clr Calc Pharmacy 100.5; Estimated Glomerular Filt Rate > 60; Glucose Random 160 mg/dL (60-115); Potassium 4.6 mmol/L (3.3-5.1); Sodium 141 mmol/L (135-145)
[2020-11-04 05:55] LABS: B Type Natriuretic Peptide 694 pg/mL (<100)
[2020-11-04] MEDS: Pantoprazole Sodium 40 MG/10 ML VIAL IVPUSH (06:07)
--- NOTE | 2020-11-04 07:30 | CA_ITS ---
Transthoracic Echocardiogram Patient (Last, First, Middle): Jennifer Davis A Gender: Female Date of : 1955 Age: 64 Procedure Date: 11/04/2020 Procedure Type: Transthoracic Echocardiogram Location: S3E Height: 154.94 cm Weight: 127.01 kg BSA: 2.18 m2 Heart Rate: bpm BP: 151 / 71 mmHg Remodeler: VH/KINJAL Referring MD: Axel Deras MD Symptoms: ? chf excerebation Study Quality: Fair ECG Rhythm: Sinus Conclusions: - The left ventricular systolic function is normal. The calculated ejection fraction is 60% by biplane method. - E/E prime ratio is >15, consistent with elevated filling pressures. Evidence suggests grade I (mild) diastolic dysfunction. - Possible PFO by color doppler. - There is mild mitral annular calcification. Findings Left Ventricle Normal left ventricular cavity size. There is normal left ventricular wall thickness. The left ventricular systolic function is normal. The calculated ejection fraction is 60% by biplane method. There is no evidence of regional wall motion abnormalities. E/E prime ratio is >15, consistent with elevated filling pressures. Evidence suggests grade I (mild) diastolic dysfunction. Right Ventricle Moderately increased right ventricular cavity size. There is normal right ventricular systolic function. TAPSE 2.4cm. Atria Both atria are normal in size. There is lipomatous hypertrophy of the interatrial septum. Possible PFO by color doppler. Aortic Valve There is a normal trileaflet aortic valve. There is no aortic valve stenosis. There is no aortic valve regurgitation. Mitral Valve There is mild mitral annular calcification. There is trace mitral valve regurgitation. There is no mitral valve stenosis. Pulmonic Valve The pulmonic valve was not well visualized. Tricuspid Valve Normal tricuspid valve structure. There is trace tricuspid valve regurgitation. The pulmonary artery systolic pressure is normal. Great Vessels The aortic annulus, sinuses of valsalva, and asc aorta are normal in size. Venous The inferior vena cava is normal in size and collapses greater than 50% with inspiration. Pericardium/Pleural There is no evidence of pericardial effusion. Prior Study Comparison No prior study available for comparison. Measurements 2D Linear Measurements IVSd: 1.67 0.6-0.9/0.6-1.0 cm LVIDd: 4.79 3.9-5.3/4.2-5.9 cm LVIDd Index: 2.20 2.4-3.2/2.2-3.1 cm/m2 LVIDs: 3.26 2.0-3.6 cm LVPWd: 1.41 0.7-1.1 cm Ao Root: 2.80 2.1-3.5 cm LA Diam: 3.80 2.7-3.8/3.0-4.0 cm LAIDs Index: 1.74 1.5-2.3 cm/m2 LV Mass: 392.64 67-162/88-224 g LV Mass Index: 180.11 43-95/49-115 g/m2 LVOT Diam: 2.00 3.0+(-)1.3 cm 2D Systolic Function EF 4C: 53.40 >55% EF 2C: 64.00 >55% EF BiP: 59.80 >55% Mitral Valve MV Pk E: 1.07 MV PK A: 1.09 MV Decel Time: 151.00 E/A: 1.00 E'Lateral: 8.38 E'Medial: 5.22 E/E' Med: 20.50 E/E' Lat: 12.80 PHT: 44.00 MVA PHT: 5.00 Decel [place]: 7.09 Aortic Valve AoV Pk Paul: 1.59 AoV Mn Paul: 1.06 AoV VTI: 0.34 AoV Pk Grad: 10.00 Aov Mn Grad: 5.00 JASMYNE Cont.VTI: 2.49 LVOT LVOT Pk Paul: 1.09 LVOT Mn Paul: 0.72 LVOT VTI: 0.27 LVOT Pk Grad: 5.00 LVOT Mn Grad: 2.00 LVOT Diam: 2.00 LVOT Area: 3.14 Diastolic Function MV Pk E: 1.07 MV Pk A: 1.09 E/A: 1.00 E'Medial: 5.22 E/E' Med: 20.50 E' Laterial: 8.38 E/E' Lat: 12.80 Right Ventricle TAPSE (mm): 2.39 TVS' Paul: 13.90 Tricuspid Valve TR Pk Paul: 2.76 TR Pk Grad: 30.00 Great Vessels Aorta Ao Root-2D: 2.80 2.0-3.7 cm Ao Asc: 3.10 2.1-3.4 cm Updated in Other Vendor System with Status of Final Pablo Rosas MD electronically signed on 11/04/2020 10:58:05 AM with status of Final
[2020-11-04] MEDS: Albuterol/Iprat 2.5/0.5MG 3 ML AMPUL.NEB INHALE ×4 (09:09→19:14)
[2020-11-04] MEDS: Furosemide 20 MG/2 ML VIAL IVPUSH (10:10)
[2020-11-04] MEDS: predniSONE 20 MG TABLET 40 MG PO (10:15)
--- NOTE | 2020-11-04 10:15 | PM.CNCAR ---
History of Present Illness History of Present Illness Date of Service: 11/04/20 Chief complaint: anemia, ? acute blood loss, ? CHF excerebation Narrative: Asked to see for congestive heart failure. Fairly complex medical history. Seems that she has multiple medical comorbidities including COPD. 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 Current admission for acute blood loss/mild CHF. It seems that patient was sent to the hospital because of desaturation fdc. Patient herself denies any active chest pain or any anginal-type complaints. Shortness of breath seems to be at baseline. Leg swelling is also about the same as before. Troponins have been slightly increased since admission. Otherwise, she states that she has never had any coronary disease myocardial infarction of cardiomyopathy or congestive heart failure or in fact anything else cardiac related in the past. Review of Systems Review of Systems: Yes all other systems are reviewed and are negative Cardiovascular: Cardiovascular: Reports as per HPI, Reports no additional cardiovascular complaints, Denies acrocyanosis, Denies cool extremities, Denies painful fingertips, Denies chest pain, Denies chest pain at rest, Denies diaphoresis, Denies syncope, Denies irregular heart rhythm, Denies claudication, Denies leg edema, Denies lightheadedness, Denies palpitations and Reports dyspnea Respiratory: Respiratory: Reports dyspnea Neurologic: Denies syncope Endocrine: Endocrine: Denies palpitations [facility] Past Medical History Medical History Diabetes HTN (hypertension) Thyroid nodule Family History Family History (Updated 11/04/20 @ 10:23 by Pablo Rosas MD) Mother CHF (congestive heart failure) Father Myocardial infarct Social History Social History Household Members: Other Housing: Shelter Do you presently have visiting nurse or other home services: Yes Patient Tobacco Use Status: Former Tobacco user Use of substances other than those prescribed or required for medical reasons: No Currently Displaying Signs/Symptoms of Drug Intoxication Withdrawal: No Have you been hit, kicked, punched, or otherwise hurt by someone within the past year? If so, by whom?: No Do you feel safe in your current relationship?: No Current Relationship Is there a partner from a previous relationship who is making you feel unsafe now?: No Are you made to feel afraid or neglected: No Advance Directives: Yes Advance Directives on File: No Advance Directives Date on File: 11/03/20 Do you have thoughts of harming others: None Do you have a plan to hurt others: No Plan Recently lost weight without trying: Unsure Nutrition Risks: No Nutritional Risk Patient : No : No Poor oral hygiene: No Meds Allergies Allergy/AdvReac Type Severity Reaction Status Date / Time No Known Allergies Allergy Verified 07/21/20 22:06 Active Medications: Current Medications Acetaminophen (Acetaminophen 325 Mg Tablet) 650 mg PO Q6H PRN PRN Reason: pain Last Admin: 11/03/20 20:12 Dose: 650 mg Documented by: Albuterol Sulfate (Albuterol Sulfate 90 Mcg 8 Gm Inhaler) 2 puff INHALE Q4H PRN PRN Reason: Wheezing Albuterol/Ipratropium (Albuterol/Iprat 2.5/0.5mg 3 Ml Ampul.Neb) 3 ml INHALE RQ4H ONEL Last Admin: 11/04/20 09:09 Dose: 3 ml Documented by: Albuterol/Ipratropium (Albuterol/Iprat 2.5/0.5mg 3 Ml Ampul.Neb) 3 ml INHALE RQ4H PRN PRN Reason: Shortness of Breath Ascorbic Acid (Ascorbic Acid 250 Mg Tablet) 250 mg PO DAILY [facility] Last Admin: 11/03/20 17:35 Dose: Not Given Documented by: Docusate Sodium (Docusate Sodium 100 Mg Capsule) 100 mg PO BID [facility] Last Admin: 11/03/20 20:08 Dose: 100 mg Documented by: Furosemide (Furosemide 20 Mg/2 Ml Vial) 20 mg IVPUSH DAILY [facility]; Protocol Ceftriaxone Sodium 1 gm/ (Sodium Chloride) 50 mls @ 100 mls/hr IV Q24H [facility] Last Infusion: 11/03/20 18:19 Dose: Infused Documented by: Loratadine (Loratadine 10 Mg Tablet) 5 mg PO DAILY PRN PRN Reason: Allergic Reaction Melatonin (Melatonin 3 Mg Tablet) 6 mg PO BEDTIME PRN PRN Reason: Insomnia Multivitamins/Vitamin C (Multivitamin Tablet) 1 tab PO DAILY [facility] Last Admin: 11/03/20 17:36 Dose: Not Given Documented by: Olanzapine (Olanzapine 2.5 Mg Tablet) 2.5 mg PO BEDTIME [facility] Last Admin: 11/03/20 20:08 Dose: 2.5 mg Documented by: Pantoprazole Sodium (Pantoprazole Sodium 40 Mg/10 Ml Vial) 40 mg IVPUSH DAILY@0630 [facility] Last Admin: 11/04/20 06:07 Dose: 40 mg Documented by: Pharmacy Consult (Consult Rx Perform Med Rec) 1 each MISCELLANE ONCE PRN PRN Reason: Consult order Polyethylene Glycol (Polyethylene Glycol 3350 17 Gm Powd.Pack) 17 gm PO DAILY [facility] Last Admin: 11/03/20 17:43 Dose: 17 gm Documented by: Prednisone (Prednisone 20 Mg Tablet) 40 mg PO DAILY [facility] Last Admin: 11/03/20 19:13 Dose: 40 mg Documented by: Warfarin Sodium (Warfarin Sodium 7.5 Mg Tablet) 7.5 mg PO DAILY@1800 [facility] Home Medications Medication Instructions Recorded Confirmed Last Taken Type albuterol sulfate 90 mcg/actuation 2 puff INHALATION Q4-6H PRN 11/03/20 11/03/20 Unknown History aerosol inhaler (ProAir HFA) ascorbic acid (vitamin C) 500 mg 250 mg PO DAILY 11/03/20 11/03/20 Unknown History tablet (Vitamin C) cetirizine 1 mg/mL oral solution 5 mg PO DAILY PRN 11/03/20 11/03/20 Unknown History melatonin 5 mg tablet 5 mg PO BEDTIME PRN 11/03/20 11/03/20 Unknown History multivitamin 1 tab PO DAILY 11/03/20 11/03/20 Unknown History olanzapine 2.5 mg tablet 2.5 mg PO BEDTIME 11/03/20 11/03/20 Unknown History ondansetron 8 mg disintegrating 8 mg PO DAILY PRN 11/03/20 11/03/20 Unknown History tablet polyethylene glycol 3350 17 gram 17 g PO DAILY 11/03/20 11/03/20 Unknown History oral powder packet (Miralax) sennosides 8.6 mg tablet (senna) 17.2 mg PO BEDTIME 11/03/20 11/03/20 Unknown History warfarin 1 mg tablet 7 mg PO DAILY 11/03/20 11/03/20 Unknown History Physical Exam Vital Signs: Vital Signs: Last Vital Signs Temp 97.5 F 11/04/20 07:55 Pulse 76 11/04/20 09:09 Resp 16 11/04/20 07:55 BP 143/65 H 11/04/20 07:55 Pulse Ox 93 11/04/20 10:13 Oxygen Flow Rate 4 11/03/20 09:19 Body Mass Index 52.9 Const: General: cooperative and no acute distress HENMT: Other: Unremarkable Neck: Neck: Yes normal visual inspection Chest: Chest palpation & inspection: normal inspection of the chest Resp: Auscultation: wheezes Cardio: Jugular venous distension: no JVD Palpation: normal PMI Heart sounds: S1 normal heart sound present, S2 normal heart sound present, no gallops, no murmurs and no rubs GI: Palpation (GI): Soft to palpation Back/Spine/Pelvis: Other: unremarkable Skin: General skin exam: no rashes or lesions noted Neuro: Cranial nerves: Yes Other cranial nerve findings present Extrem: General: Yes pedal edema (1+) Psych: Mental Status: other Results Labs and Meds Result diagrams: 11/04/20 05:19 11/04/20 05:19 Lab results: Laboratory Results - last 24 hr 11/03/20 11/03/20 11/03/20 10:24 10:42 10:42 WBC 7.0 RBC 3.88 L D Hgb 9.1 L D Hct 32.9 L D MCV 84.8 MCH 23.5 L MCHC 27.7 L RDW 18.2 H Plt Count 271 D MPV 9.1 L Immature Gran % (Auto) 0.3 Neut % (Auto) 64.7 Lymph % (Auto) 22.2 [place] % (Auto) 11.4 H Eos % (Auto) 1.0 Baso % (Auto) 0.4 Lymph # (Auto) 1.5 [place] # (Auto) 0.8 Eos # (Auto) 0.1 Baso # (Auto) 0.0 Abs Immat Gran (auto) 0.02 Absolute Neuts (auto) 4.5 Absolute Nucleated RBC 0.000 Nucleated RBC % (auto) 0.0 PT INR PTT (Heparin Protocol) D-Dimer VBG pH VBG pCO2 VBG pO2 VBG HCO3 VBG O2 Saturation VBG Base Excess Sodium 140 Potassium 4.9 Chloride 100 Carbon Dioxide 32 H Anion Gap 13 BUN 13 Creatinine 0.70 Estim Creat Clear Calc 100.5 Estimated GFR > 60 Random Glucose 122 H Estimat Average Glucose Hemoglobin A1c % Lactic Acid Calcium 8.6 D Iron 24 L TIBC 388 % Saturation 6 L Unsat Iron Binding 364 Ferritin 38 Troponin I High Sens B-Natriuretic Peptide Urine Color Urine Appearance Urine pH Ur Specific [place] Urine Protein Urine Glucose (UA) Urine Ketones Urine Blood Urine Nitrite Ur Leukocyte Esterase Urine RBC Urine WBC Ur Squamous Epith Cells Ur Renal Epithelial Cell Urine Bacteria Urine Mucus Stool Occult Blood Ethyl Alcohol COVID-19 (EVELINA) Negative COVID-19 Clin Com See Note 11/03/20 11/03/20 11/03/20 10:42 10:42 10:42 WBC RBC Hgb Hct MCV MCH MCHC RDW Plt Count MPV Immature Gran % (Auto) Neut % (Auto) Lymph % (Auto) [place] % (Auto) Eos % (Auto) Baso % (Auto) Lymph # (Auto) [place] # (Auto) Eos # (Auto) Baso # (Auto) Abs Immat Gran (auto) Absolute Neuts (auto) Absolute Nucleated RBC Nucleated RBC % (auto) PT INR PTT (Heparin Protocol) D-Dimer VBG pH VBG pCO2 VBG pO2 VBG HCO3 VBG O2 Saturation VBG Base Excess Sodium Potassium Chloride Carbon Dioxide Anion Gap BUN Creatinine Estim Creat Clear Calc Estimated GFR Random Glucose Estimat Average Glucose 97 Hemoglobin A1c % 5.0 Lactic Acid Calcium Iron TIBC % Saturation Unsat Iron Binding Ferritin Troponin I High Sens 50.1 H* D B-Natriuretic Peptide 1124 H Urine Color Urine Appearance Urine pH Ur Specific [place] Urine Protein Urine Glucose (UA) Urine Ketones Urine Blood Urine Nitrite Ur Leukocyte Esterase Urine RBC Urine WBC Ur Squamous Epith Cells Ur Renal Epithelial Cell Urine Bacteria Urine Mucus Stool Occult Blood Ethyl Alcohol < 10 COVID-19 (EVELINA) COVID-19 Clin Com 11/03/20 11/03/20 11/03/20 12:06 12:10 13:56 WBC RBC Hgb Hct MCV MCH MCHC RDW Plt Count MPV Immature Gran % (Auto) Neut % (Auto) Lymph % (Auto) [place] % (Auto) Eos % (Auto) Baso % (Auto) Lymph # (Auto) [place] # (Auto) Eos # (Auto) Baso # (Auto) Abs Immat Gran (auto) Absolute Neuts (auto) Absolute Nucleated RBC Nucleated RBC % (auto) PT 14.5 H INR 1.3 H PTT (Heparin Protocol) D-Dimer VBG pH VBG pCO2 VBG pO2 VBG HCO3 VBG O2 Saturation VBG Base Excess Sodium Potassium Chloride Carbon Dioxide Anion Gap BUN Creatinine Estim Creat Clear Calc Estimated GFR Random Glucose Estimat Average Glucose Hemoglobin A1c % Lactic Acid 0.6 Calcium Iron TIBC % Saturation Unsat Iron Binding Ferritin Troponin I High Sens B-Natriuretic Peptide Urine Color Urine Appearance Urine pH Ur Specific [place] Urine Protein Urine Glucose (UA) Urine Ketones Urine Blood Urine Nitrite Ur Leukocyte Esterase Urine RBC Urine WBC Ur Squamous Epith Cells Ur Renal Epithelial Cell Urine Bacteria Urine Mucus Stool Occult Blood NEGATIVE Ethyl Alcohol COVID-19 (EVELINA) COVID-19 Clin Com 11/03/20 11/03/20 11/03/20 13:56 14:08 14:49 WBC RBC Hgb 8.9 L Hct 32.9 L MCV MCH MCHC RDW Plt Count MPV Immature Gran % (Auto) Neut % (Auto) Lymph % (Auto) [place] % (Auto) Eos % (Auto) Baso % (Auto) Lymph # (Auto) [place] # (Auto) Eos # (Auto) Baso # (Auto) Abs Immat Gran (auto) Absolute Neuts (auto) Absolute Nucleated RBC Nucleated RBC % (auto) PT INR PTT (Heparin Protocol) D-Dimer VBG pH 7.47 H VBG pCO2 57 VBG pO2 59 VBG HCO3 42 H VBG O2 Saturation 86.0 VBG Base Excess 16.8 Sodium Potassium Chloride Carbon Dioxide Anion Gap BUN Creatinine Estim Creat Clear Calc Estimated GFR Random Glucose Estimat Average Glucose Hemoglobin A1c % Lactic Acid Calcium Iron TIBC % Saturation Unsat Iron Binding Ferritin Troponin I High Sens B-Natriuretic Peptide Urine Color YELLOW Urine Appearance CLOUDY Urine pH 6.0 Ur Specific [place] 1.010 Urine Protein TRACE Urine Glucose (UA) NEG Urine Ketones NEG Urine Blood NEG Urine Nitrite POS H Ur Leukocyte Esterase 1+ H Urine RBC 0-2 Urine WBC 5-9 H Ur Squamous Epith Cells 3+ Ur Renal Epithelial Cell 1+ Urine Bacteria 1+ Urine Mucus 1+ Stool Occult Blood Ethyl Alcohol COVID-19 (EVELINA) COVID-19 Clin Com 11/03/20 11/03/20 11/03/20 17:42 17:42 18:54 WBC 7.3 RBC 3.69 L Hgb 8.5 L Hct 31.2 L MCV 84.6 MCH 23.0 L MCHC 27.2 L RDW 18.2 H Plt Count 246 MPV 9.1 L Immature Gran % (Auto) Neut % (Auto) Lymph % (Auto) [place] % (Auto) Eos % (Auto) Baso % (Auto) Lymph # (Auto) [place] # (Auto) Eos # (Auto) Baso # (Auto) Abs Immat Gran (auto) Absolute Neuts (auto) Absolute Nucleated RBC 0.000 Nucleated RBC % (auto) 0.0 PT 14.2 H INR 1.2 H PTT (Heparin Protocol) 29.2 L D-Dimer 537 VBG pH VBG pCO2 VBG pO2 VBG HCO3 VBG O2 Saturation VBG Base Excess Sodium Potassium Chloride Carbon Dioxide Anion Gap BUN Creatinine Estim Creat Clear Calc Estimated GFR Random Glucose Estimat Average Glucose Hemoglobin A1c % Lactic Acid Calcium Iron TIBC % Saturation Unsat Iron Binding Ferritin Troponin I High Sens B-Natriuretic Peptide Urine Color Urine Appearance Urine pH Ur Specific [place] Urine Protein Urine Glucose (UA) Urine Ketones Urine Blood Urine Nitrite Ur Leukocyte Esterase Urine RBC Urine WBC Ur Squamous Epith Cells Ur Renal Epithelial Cell Urine Bacteria Urine Mucus Stool Occult Blood Ethyl Alcohol COVID-19 (EVELINA) COVID-19 Clin Com 11/04/20 11/04/20 11/04/20 05:19 05:19 05:19 WBC 5.1 RBC 3.79 L Hgb 8.8 L Hct 32.1 L MCV 84.7 MCH 23.2 L MCHC 27.4 L RDW 18.1 H Plt Count 245 MPV 8.6 L Immature Gran % (Auto) Neut % (Auto) Lymph % (Auto) [place] % (Auto) Eos % (Auto) Baso % (Auto) Lymph # (Auto) [place] # (Auto) Eos # (Auto) Baso # (Auto) Abs Immat Gran (auto) Absolute Neuts (auto) Absolute Nucleated RBC 0.000 Nucleated RBC % (auto) 0.0 PT INR PTT (Heparin Protocol) D-Dimer VBG pH VBG pCO2 VBG pO2 VBG HCO3 VBG O2 Saturation VBG Base Excess Sodium 141 Potassium 4.6 Chloride 99 Carbon Dioxide 36 H Anion Gap 11 L BUN 12 Creatinine 0.70 Estim Creat Clear Calc 100.5 Estimated GFR > 60 Random Glucose 160 H Estimat Average Glucose Hemoglobin A1c % Lactic Acid Calcium 8.8 Iron TIBC % Saturation Unsat Iron Binding Ferritin Troponin I High Sens B-Natriuretic Peptide 694 H Urine Color Urine Appearance Urine pH Ur Specific [place] Urine Protein Urine Glucose (UA) Urine Ketones Urine Blood Urine Nitrite Ur Leukocyte Esterase Urine RBC Urine WBC Ur Squamous Epith Cells Ur Renal Epithelial Cell Urine Bacteria Urine Mucus Stool Occult Blood Ethyl Alcohol COVID-19 (EVELINA) COVID-19 Clin Com 11/04/20 05:19 WBC RBC Hgb Hct MCV MCH MCHC RDW Plt Count MPV Immature Gran % (Auto) Neut % (Auto) Lymph % (Auto) [place] % (Auto) Eos % (Auto) Baso % (Auto) Lymph # (Auto) [place] # (Auto) Eos # (Auto) Baso # (Auto) Abs Immat Gran (auto) Absolute Neuts (auto) Absolute Nucleated RBC Nucleated RBC % (auto) PT 14.8 H INR 1.3 H PTT (Heparin Protocol) D-Dimer VBG pH VBG pCO2 VBG pO2 VBG HCO3 VBG O2 Saturation VBG Base Excess Sodium Potassium Chloride Carbon Dioxide Anion Gap BUN Creatinine Estim Creat Clear Calc Estimated GFR Random Glucose Estimat Average Glucose Hemoglobin A1c % Lactic Acid Calcium Iron TIBC % Saturation Unsat Iron Binding Ferritin Troponin I High Sens B-Natriuretic Peptide Urine Color Urine Appearance Urine pH Ur Specific [place] Urine Protein Urine Glucose (UA) Urine Ketones Urine Blood Urine Nitrite Ur Leukocyte Esterase Urine RBC Urine WBC Ur Squamous Epith Cells Ur Renal Epithelial Cell Urine Bacteria Urine Mucus Stool Occult Blood Ethyl Alcohol COVID-19 (EVELINA) COVID-19 Clin Com ECG Interpretation: EKG with sinus rhythm at eighty-eight/Min; inverted Ts in precordial leads. This is similar to recent EKG from [facility] from September 2020. Imaging Radiologist's impression: Impressions Chest X-Ray 11/03/20 10:02 IMPRESSION: Patchy opacity left lung base likely atelectasis. There is blunting of left CP angle from pleural thickening or pleural effusion. Abdomen/Pelvis CT 11/03/20 12:37 IMPRESSION: 1. No acute findings within the abdomen or pelvis. No intra-abdominal or pelvic hematomas. 2. Evidence of third spacing. 3. Constipation and possible fecal impaction at the level of the rectum. 4. Moderate left perinephric stranding of uncertain etiology. The right kidney is atrophic. Possible underlying low-density lesions within the renal cortices, however noncontrast technique limits assessment. Consider follow-up with renal ultrasound for further assessment. 5. 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 This is a risk factor for the development of gallbladder malignancy. 6. Possible volume overload with small pleural effusions, body wall edema and trace pelvic free fluid. 7. Other chronic and nonacute findings as above. Chest CTA 11/03/20 19:45 IMPRESSION: No evidence for acute pulmonary emboli. Mosaic perfusion and basilar dependent atelectatic change. VTE: Negative Assessment and Plan (1) Acute diastolic (congestive) heart failure: Status: Acute (2) Acute blood loss anemia: Status: Acute (3) COPD (chronic obstructive pulmonary disease): Status: Acute Complex medical history. But available documentation from [facility] suspected to be possibly stroke from paradoxical embolism. Continue with anticoagulation. Continue IV diuretics. Elevated troponins most likely demand related. She has no angina. Echocardiogram to be completed. We will follow up with you. Procedures Date of Service Date of Service: 11/04/20
[2020-11-04] MEDS: Multivitamin TABLET 1 TAB PO (10:20)
[2020-11-04] MEDS: Ascorbic Acid 250 MG TABLET PO (10:21)
[2020-11-04 10:38] LABS: Folate 11.2 ng/mL (> or = 4.0); Vitamin B12 277 pg/mL (200-900)
--- NOTE | 2020-11-04 11:35 | P.CDIC_ITS ---
CDI Concurrent Query Documentation Clarification: PHYSICIAN'S DOCUMENTATION REQUEST Date of Query: 11/04/20 1138 Patient Name: Jennifer Davis Admit Date: 11/03/20 Dear Doctor, A review of the medical record indicates additional documentation may be needed. Please review below and update the documentation accordingly. Other Clinical Notes Supporting Significance of the BMI: Risk Factors/Clinical Indicators/Treatments BMI 52.9 5' 1 in height If possible, please provide an associated diagnosis related to the abnormal BMI, such as: For a BMI >= 40: * Overweight * Obesity * Due to excess calories * Drug induced * Due to other cause * Severe or Morbid Obesity * With alveolar hypoventilation * Without alveolar hypoventilation Or: * Other (please specify) * Unable to determine Use of terms such as suspected, likely, concern for, or probable (associated with a specific diagnosis that is being evaluated, monitored, or treated as if it exists) are acceptable and can be coded in the inpatient setting, when documented at the time of discharge. Thank you, Berenice Garcia [facility], CDIS Extension: [phone] Please use your independent medical judgment in providing your response. THIS QUERY IS PART OF THE PERMANENT MEDICAL RECORD Provider Response: Other Other Diagnosis: morbid obesity
--- NOTE | 2020-11-04 11:35 | MHC.CDI.CONC ---
CDI Concurrent Query Documentation Clarification: PHYSICIAN'S DOCUMENTATION REQUEST Date of Query: 11/04/20 1136 Patient Name: Jennifer Davis Admit Date: 11/03/20 Dear Doctor, A review of the medical record indicates additional documentation may be needed. Please review below and update the documentation accordingly. Other Clinical Notes Supporting Significance of the BMI: Risk Factors/Clinical Indicators/Treatments BMI 52.9 5' 1 in height If possible, please provide an associated diagnosis related to the abnormal BMI, such as: For a BMI >= 40: Overweight Obesity Due to excess calories Drug induced Due to other cause Severe or Morbid Obesity With alveolar hypoventilation Without alveolar hypoventilation Or: Other (please specify) Unable to determine Use of terms such as suspected, likely, concern for, or probable (associated with a specific diagnosis that is being evaluated, monitored, or treated as if it exists) are acceptable and can be coded in the inpatient setting, when documented at the time of discharge. Thank you, Berenice Garcia [facility], CDIS Extension: [phone] Please use your independent medical judgment in providing your response. THIS QUERY IS PART OF THE PERMANENT MEDICAL RECORD Provider Response: Other Other Diagnosis: morbid obesity
--- NOTE | 2020-11-04 12:40 | MHC.CM.PN ---
IMM 11/04/2020, EMR REVIEWED, KRISTIAN MET W/PT WHO REPORTS SHE HAS BEEN IN REHAB WT [facility] SINCE JULY, PT REPORTS SHE WOULD LIKE TO GO HOME HOWEVER IS CURRENTLY BED BOUND AND HAS THE WOUND VAC, CM CONTACTED PT'S SON PALLAVI WHEELER [phone] AND REPORTS PT LIVES ALONE NEXT DOOR AND HAS BEEN UNABLE TO GET HOME SERVICES D/T NOT SEEING HER PCP IN SO LONG, CM [employer] TECHNICIAN WILL MAKE A TELEHEALTH APPT FOR PT W/DR [place], PT'S SON REPORTS HE IS PT'S HCP AND COPY HAS BEEN REQUESTED. D/C PLAN: RETURN TO [facility], ACTION FOR BLS TRANSPORT
--- NOTE | 2020-11-04 13:09 | HO.PM.IMPN ---
Subjective Subjective Date of Service: 11/04/20 Interval History: chf excerebation , uti? , constipation Review of Systems sob seems improving Denies any new complaint of chest pain or shortness of breath or abdominal pain or fever or chills or nausea or vomiting Denies any cough As per staff had 1 BM yesterday, passing gases okay. Physical Exam Vital Signs: Vital Signs: Last Vital Signs Temp 97.5 F 11/04/20 12:00 Pulse 71 11/04/20 12:05 Resp 17 11/04/20 12:00 BP 130/58 L 11/04/20 12:00 Pulse Ox 92 11/04/20 12:00 Oxygen Flow Rate 4 11/03/20 09:19 Body Mass Index 52.9 Objective Data Active Medications Acetaminophen (Acetaminophen 325 Mg Tablet) 650 mg PO Q6H PRN PRN Reason: pain Last Admin: 11/03/20 20:12 Dose: 650 mg Documented by: LEEANN Albuterol Sulfate (Albuterol Sulfate 90 Mcg 8 Gm Inhaler) 2 puff INHALE Q4H PRN PRN Reason: Wheezing Albuterol/Ipratropium (Albuterol/Iprat 2.5/0.5mg 3 Ml Ampul.Neb) 3 ml INHALE RQ4H ONEL Last Admin: 11/04/20 12:04 Dose: 3 ml Documented by: DELONTE Albuterol/Ipratropium (Albuterol/Iprat 2.5/0.5mg 3 Ml Ampul.Neb) 3 ml INHALE RQ4H PRN PRN Reason: Shortness of Breath Ascorbic Acid (Ascorbic Acid 250 Mg Tablet) 250 mg PO DAILY [facility] Last Admin: 11/04/20 10:21 Dose: 250 mg Documented by: NAEL Docusate Sodium (Docusate Sodium 100 Mg Capsule) 100 mg PO BID [facility] Last Admin: 11/04/20 10:21 Dose: Not Given Documented by: NAEL Non-Admin Reason: Patient Refused Furosemide (Furosemide 20 Mg/2 Ml Vial) 20 mg IVPUSH DAILY [facility]; Protocol Last Admin: 11/04/20 10:10 Dose: 20 mg Documented by: NAEL Ceftriaxone Sodium 1 gm/ (Sodium Chloride) 50 mls @ 100 mls/hr IV Q24H [facility] Last Infusion: 11/03/20 18:19 Dose: 0 mls/hr Documented by: GAVIN Loratadine (Loratadine 10 Mg Tablet) 5 mg PO DAILY PRN PRN Reason: Allergic Reaction Melatonin (Melatonin 3 Mg Tablet) 6 mg PO BEDTIME PRN PRN Reason: Insomnia Multivitamins/Vitamin C (Multivitamin Tablet) 1 tab PO DAILY [facility] Last Admin: 11/04/20 10:20 Dose: 1 tab Documented by: NAEL Olanzapine (Olanzapine 2.5 Mg Tablet) 2.5 mg PO BEDTIME [facility] Last Admin: 11/03/20 20:08 Dose: 2.5 mg Documented by: LEEANN Pantoprazole Sodium (Pantoprazole Sodium 40 Mg/10 Ml Vial) 40 mg IVPUSH DAILY@0630 [facility] Last Admin: 11/04/20 06:07 Dose: 40 mg Documented by: LEEANN Pharmacy Consult (Consult Rx Perform Med Rec) 1 each MISCELLANE ONCE PRN PRN Reason: Consult order Polyethylene Glycol (Polyethylene Glycol 3350 17 Gm Powd.Pack) 17 gm PO DAILY [facility] Last Admin: 11/04/20 10:22 Dose: Not Given Documented by: NAEL Non-Admin Reason: Patient Refused Prednisone (Prednisone 20 Mg Tablet) 40 mg PO DAILY [facility] Last Admin: 11/04/20 10:15 Dose: 40 mg Documented by: NAEL Warfarin Sodium (Warfarin Sodium 7.5 Mg Tablet) 7.5 mg PO DAILY@1800 [facility] Labs CBC & Chem 7: 11/04/20 05:19 11/04/20 05:19 Labs: Laboratory Results - last 24 hr 11/03/20 11/03/20 11/03/20 10:42 10:42 10:42 MCV MCH MCHC RDW Plt Count MPV Absolute Nucleated RBC Nucleated RBC % (auto) PT INR PTT (Heparin Protocol) D-Dimer VBG pH VBG pCO2 VBG pO2 VBG HCO3 VBG O2 Saturation VBG Base Excess Anion Gap Estim Creat Clear Calc Estimated GFR Random Glucose Estimat Average Glucose 97 Hemoglobin A1c % 5.0 Lactic Acid Calcium Iron 24 L TIBC 388 % Saturation 6 L Unsat Iron Binding 364 Ferritin 38 B-Natriuretic Peptide Vitamin B12 277 Folate 11.2 Urine Color Urine Appearance Urine pH Ur Specific [place] Urine Protein Urine Glucose (UA) Urine Ketones Urine Blood Urine Nitrite Ur Leukocyte Esterase Urine RBC Urine WBC Ur Squamous Epith Cells Ur Renal Epithelial Cell Urine Bacteria Urine Mucus 11/03/20 11/03/20 11/03/20 12:10 13:56 14:08 MCV MCH MCHC RDW Plt Count MPV Absolute Nucleated RBC Nucleated RBC % (auto) PT 14.5 H INR 1.3 H PTT (Heparin Protocol) D-Dimer VBG pH 7.47 H VBG pCO2 57 VBG pO2 59 VBG HCO3 42 H VBG O2 Saturation 86.0 VBG Base Excess 16.8 Anion Gap Estim Creat Clear Calc Estimated GFR Random Glucose Estimat Average Glucose Hemoglobin A1c % Lactic Acid 0.6 Calcium Iron TIBC % Saturation Unsat Iron Binding Ferritin B-Natriuretic Peptide Vitamin B12 Folate Urine Color Urine Appearance Urine pH Ur Specific [place] Urine Protein Urine Glucose (UA) Urine Ketones Urine Blood Urine Nitrite Ur Leukocyte Esterase Urine RBC Urine WBC Ur Squamous Epith Cells Ur Renal Epithelial Cell Urine Bacteria Urine Mucus 11/03/20 11/03/20 11/03/20 14:49 17:42 17:42 MCV MCH MCHC RDW Plt Count MPV Absolute Nucleated RBC Nucleated RBC % (auto) PT 14.2 H INR 1.2 H PTT (Heparin Protocol) 29.2 L D-Dimer 537 VBG pH VBG pCO2 VBG pO2 VBG HCO3 VBG O2 Saturation VBG Base Excess Anion Gap Estim Creat Clear Calc Estimated GFR Random Glucose Estimat Average Glucose Hemoglobin A1c % Lactic Acid Calcium Iron TIBC % Saturation Unsat Iron Binding Ferritin B-Natriuretic Peptide Vitamin B12 Folate Urine Color YELLOW Urine Appearance CLOUDY Urine pH 6.0 Ur Specific [place] 1.010 Urine Protein TRACE Urine Glucose (UA) NEG Urine Ketones NEG Urine Blood NEG Urine Nitrite POS H Ur Leukocyte Esterase 1+ H Urine RBC 0-2 Urine WBC 5-9 H Ur Squamous Epith Cells 3+ Ur Renal Epithelial Cell 1+ Urine Bacteria 1+ Urine Mucus 1+ 11/03/20 11/04/20 11/04/20 18:54 05:19 05:19 MCV 84.6 84.7 MCH 23.0 L 23.2 L MCHC 27.2 L 27.4 L RDW 18.2 H 18.1 H Plt Count 246 245 MPV 9.1 L 8.6 L Absolute Nucleated RBC 0.000 0.000 Nucleated RBC % (auto) 0.0 0.0 PT INR PTT (Heparin Protocol) D-Dimer VBG pH VBG pCO2 VBG pO2 VBG HCO3 VBG O2 Saturation VBG Base Excess Anion Gap 11 L Estim Creat Clear Calc 100.5 Estimated GFR > 60 Random Glucose 160 H Estimat Average Glucose Hemoglobin A1c % Lactic Acid Calcium 8.8 Iron TIBC % Saturation Unsat Iron Binding Ferritin B-Natriuretic Peptide Vitamin B12 Folate Urine Color Urine Appearance Urine pH Ur Specific [place] Urine Protein Urine Glucose (UA) Urine Ketones Urine Blood Urine Nitrite Ur Leukocyte Esterase Urine RBC Urine WBC Ur Squamous Epith Cells Ur Renal Epithelial Cell Urine Bacteria Urine Mucus 11/04/20 11/04/20 05:19 05:19 MCV MCH MCHC RDW Plt Count MPV Absolute Nucleated RBC Nucleated RBC % (auto) PT 14.8 H INR 1.3 H PTT (Heparin Protocol) D-Dimer VBG pH VBG pCO2 VBG pO2 VBG HCO3 VBG O2 Saturation VBG Base Excess Anion Gap Estim Creat Clear Calc Estimated GFR Random Glucose Estimat Average Glucose Hemoglobin A1c % Lactic Acid Calcium Iron TIBC % Saturation Unsat Iron Binding Ferritin B-Natriuretic Peptide 694 H Vitamin B12 Folate Urine Color Urine Appearance Urine pH Ur Specific [place] Urine Protein Urine Glucose (UA) Urine Ketones Urine Blood Urine Nitrite Ur Leukocyte Esterase Urine RBC Urine WBC Ur Squamous Epith Cells Ur Renal Epithelial Cell Urine Bacteria Urine Mucus Microbiology Microbiology Results: Microbiology 11/03/20 10:41 Blood Culture - Preliminary Blood - Venous No growth after 24 hours. 11/03/20 15:21 Urine Culture - Preliminary Urine clean catch - Urine llanes top Culture in progress. 11/03/20 10:41 Blood Culture - Preliminary Blood - Venous Prelim: GPC Gram Stain only Assessment and Plan (1) Acute diastolic (congestive) heart failure: Status: Acute (2) COPD (chronic obstructive pulmonary disease): Status: Acute Assessment and Plan: 1. Acute blood loss most likely:lesslikely Her documents [facility] [place] [facility] shows-Patient's hemoglobin was 7.8 to 8.4? on 10/15/2020in [facility] records which was obtained. Stool for occultblood negative Repeated H&H is similar range 8.8/32.1 Her H&H is seems seems to be improving than before. Patient denies any recent bleeding. 2.question of perinephric standing UA positive, urine culture, blood culture pending? : continue IV ceftriaxone day2 , urine and blood culture pendin. 3.acute hypoxemic respiratory failure-probably mixed COPD/ mild CHF exacerbation:? Considering her history of ?rv thrombus as per patient report Also patient has elevated BNP, edema, pleural effusion Monitor I/o Daily weight iv lasix, continue warfrain inr subtherapeutic echo cardio eval-troponin elevation probably secondary to demand. Thought to be stroke from paradoxical embolism, continue anticoagulation, IV diuresis 4. COPD execerbation and was on oxygen 2 L as per her report: COVID negative Atelectasis gaming:? Will add chest physio and incentive spirometry. ddimer high, vbg noted -? mild hypercarbia /hypoxia cta added -negative for PE. continue nebs, steriod , chest physio, incentive naseem. 5. Patient has history DVT, hx of Rv thrombus : Her INR is subtherapeutic Has severe drop in H&H and has anemia continue warfarin for now 6. hx of cva and left sided Cva: inr subtherpeutic adjusted warfarin to 7.5 mg over last evenin goal inr between 2-3 7. Constipation: Continue laxatives Passing gases, had 1 bowel movement, yesterday, no abdominal pain DVT prophylaxis : warfarin , mech devices on the left leg since right leg has wound and wound VAC Quality Stroke Does the patient have a stroke diagnosis?: No Reason for No Anti-thrombotic by Day Two: N/A - Med Ordered VTE Prior VTE?: Yes VTE Risk Level:: Medical - moderate - high VTE Device Contraindication: N/A - Device Ordered VTE Drug Contraindication: N/A - Med Ordered
--- NOTE | 2020-11-04 13:17 | MHC.CLN ---
Addendum entered by Radha Nichols, ANDREAS 11/04/20 13:24: ENSURE MAX PROTEIN VOLUME IS 330 ML BID. Original Note: NUTRITION CONSULT-SKIN PATIENT WITH WOUND VAC TO RIGHT LOWER EXTREMITY. HAS SIGNIFICANT WEIGHT LOSS X 3 MONTHS, -14.2%. REPORTED CVA AUGUST 2020 WITH LEFT HEMIPARESIS. ABLE TO FEED SELF WITH RIGHT HAND. BMI=52.9. EXTREME OBESITY. RECOMMEND ENSURE MAX PROTEIN 240 ML BID (300 KCAL, 60 G PROTEIN) TO PROMOTE WOUND HEALING.
--- NOTE | 2020-11-04 14:29 | PC.NURSE ---
Skin/wound assessment completed today. Patient has a surgical wound from a debridement of large hematoma. This nurse changed the dressing today. Black woundvac sponge on wound bed covered with transparent film with wound vac running at 125 mmhg. Wound measures 15 cm x 9 cm x 0.5 cm. Wound bed is granulated with some yellow and a small hole in center of wound. No leakage from wound area. No other skin issues noted at this time.
[2020-11-04] MEDS: Omeprazole 20 MG CAPSULE.DR PO (15:31)
[2020-11-04] MEDS: cefTRIAXone sodium 1 GM in 0.9 % Sodium Chloride 50 ML IV (15:32)
[2020-11-04] MEDS: Warfarin Sodium 7.5 MG TABLET PO (15:41)
[2020-11-04] MEDS: Loratadine 10 MG TABLET 5 MG PO (15:41)
[2020-11-04] MEDS: Acetaminophen 325 MG TABLET 650 MG PO (15:42)
[2020-11-04] MEDS: Docusate Sodium 100 MG CAPSULE PO (20:07)
[2020-11-04] MEDS: OLANZapine 2.5 MG TABLET PO (20:07)
[2020-11-04] MEDS: Melatonin 3 MG TABLET 6 MG PO (20:07)
[2020-11-05] VITALS (9 sets, daily range): BP systolic 137–168; BP diastolic 60–72; PULSE 76–90; RESP 16–20; TEMP 36.4–36.7; O2SAT 92–97
[2020-11-05] MEDS: Albuterol/Iprat 2.5/0.5MG 3 ML AMPUL.NEB INHALE ×6 (00:28→20:37)
[2020-11-05] MEDS: Omeprazole 20 MG CAPSULE.DR PO (05:32)
[2020-11-05 06:09] LABS: Hematocrit 29.2 % (37-47); Hemoglobin 8.1 g/dl (12.0-16.0); Mean Corpuscular HGB Conc 27.7 g/dl (31.0-35.0); Mean Platelet Volume 8.9 fL (9.4-12.3); Platelet Count 243 X10*3/uL (160-400); Red Blood Count 3.52 X10*6/uL (4.20-5.50); Red Cell Distribution Width 18.1 % (11.0-16.0); White Blood Count 7.1 X10*3/uL (4.8-10.8)
[2020-11-05 06:26] LABS: Anion Gap 10 (12-20); Blood Urea Nitrogen 16 mg/dL (9-16); Calcium 8.4 mg/dL (8.4-10.2); Carbon Dioxide 36 mmol/L (22-29); Chloride 99 mmol/L (96-108); Creatinine Clr Calc Pharmacy 84.7; Estimated Glomerular Filt Rate > 60; Glucose Random 142 mg/dL (60-115); Sodium 141 mmol/L (135-145)
[2020-11-05 06:30] LABS: B Type Natriuretic Peptide 388 pg/mL (<100)
[2020-11-05] MEDS: Furosemide 20 MG/2 ML VIAL IVPUSH (08:09)
[2020-11-05] MEDS: Ascorbic Acid 250 MG TABLET PO (08:09)
[2020-11-05] MEDS: Docusate Sodium 100 MG CAPSULE PO ×2 (08:09→19:53)
[2020-11-05] MEDS: Acetaminophen 325 MG TABLET 650 MG PO ×2 (08:09→19:53)
[2020-11-05] MEDS: predniSONE 20 MG TABLET 40 MG PO (08:09)
[2020-11-05] MEDS: Loratadine 10 MG TABLET 5 MG PO (08:09)
[2020-11-05] MEDS: Multivitamin TABLET 1 TAB PO (08:09)
[2020-11-05 09:08] LABS: INTERNATIONAL NORM RATIO 1.6 (0.9-1.1); Prothrombin Time 18.6 SEC (9.9-13.0)
--- NOTE | 2020-11-05 09:37 | P.PNCA_ITS ---
Subjective Subjective Date of Service: 11/05/20 Interval history: She feels better. No specific cardiac complaints. Review of Systems Review of Systems Yes all other systems are reviewed and are negative Cardiovascular: Reports as per HPI, Reports no additional cardiovascular complaints, Denies acrocyanosis, Denies cool extremities, Denies painful fingertips, Denies chest pain, Denies chest pain at rest, Denies diaphoresis, Denies syncope, Denies irregular heart rhythm, Denies claudication, Denies leg edema, Denies lightheadedness, Denies palpitations and Reports dyspnea Respiratory: Reports dyspnea Denies syncope Endocrine: Denies palpitations Physical Exam Vital Signs: Last Vital Signs Temp 97.6 F 11/05/20 07:27 Pulse 85 11/05/20 07:27 Resp 20 11/05/20 07:27 BP 137/60 11/05/20 07:27 Pulse Ox 92 11/05/20 07:27 Oxygen Flow Rate 4 11/03/20 09:19 Body Mass Index 52.9 Const General: cooperative and no acute distress [facility] Other: Unremarkable Neck Neck: Yes normal visual inspection Chest Chest palpation & inspection: normal inspection of the chest Resp Other: few basal crackles Cardio Jugular venous distension: no JVD Palpation: normal PMI Heart sounds: S1 normal heart sound present, S2 normal heart sound present, no gallops, no murmurs and no rubs GI Palpation (GI): Soft to palpation Back/Spine/Pelvis Other: unremarkable Skin General skin exam: no rashes or lesions noted Neuro Cranial nerves: Yes Other cranial nerve findings present Extrem General: Yes pedal edema (1+) Psych Mental Status: other Results Labs and Meds Result diagrams: 11/05/20 05:57 11/05/20 05:57 Lab results: Laboratory Results - last 24 hr 11/03/20 11/03/20 11/05/20 10:42 12:10 05:57 WBC 7.1 RBC 3.52 L Hgb 8.1 L Hct 29.2 L MCV 83.0 MCH 23.0 L MCHC 27.7 L RDW 18.1 H Plt Count 243 MPV 8.9 L Absolute Nucleated RBC 0.000 Nucleated RBC % (auto) 0.0 PT INR Sodium Potassium Chloride Carbon Dioxide Anion Gap BUN Creatinine Estim Creat Clear Calc Estimated GFR Random Glucose Lactic Acid 0.6 Calcium B-Natriuretic Peptide Vitamin B12 277 Folate 11.2 11/05/20 11/05/20 11/05/20 05:57 05:57 08:42 WBC RBC Hgb Hct MCV MCH MCHC RDW Plt Count MPV Absolute Nucleated RBC Nucleated RBC % (auto) PT 18.6 H D INR 1.6 H Sodium 141 Potassium 4.0 Chloride 99 Carbon Dioxide 36 H Anion Gap 10 L BUN 16 Creatinine 0.83 Estim Creat Clear Calc 84.7 Estimated GFR > 60 Random Glucose 142 H Lactic Acid Calcium 8.4 B-Natriuretic Peptide 388 H Vitamin B12 Folate Progress Note: A&P Assessment and plan (1) Acute diastolic (congestive) heart failure: Status: Acute (2) Acute blood loss anemia: Status: Acute (3) COPD (chronic obstructive pulmonary disease): Status: Acute Assessment and Plan: Complex medical history. But available documentation from [facility] suspected to be possibly stroke from paradoxical embolism. Continue with anticoagulation. With regard to diuresis, she is -1200cc since admission. May consider switching to oral diuretics. Elevated troponins most likely demand related. She has no angina. EKG changes could be related to RV strain; unchanged from [facility] september EKG. Discharge planning. Fall Risk Details Current Medications: Current Medications Acetaminophen (Acetaminophen 325 Mg Tablet) 650 mg PO Q6H PRN PRN Reason: pain Last Admin: 11/05/20 08:09 Dose: 650 mg Documented by: Albuterol Sulfate (Albuterol Sulfate 90 Mcg 8 Gm Inhaler) 2 puff INHALE Q4H PRN PRN Reason: Wheezing Albuterol/Ipratropium (Albuterol/Iprat 2.5/0.5mg 3 Ml Ampul.Neb) 3 ml INHALE RQ4H [facility] Last Admin: 11/05/20 07:26 Dose: 3 ml Documented by: Albuterol/Ipratropium (Albuterol/Iprat 2.5/0.5mg 3 Ml Ampul.Neb) 3 ml INHALE RQ4H PRN PRN Reason: Shortness of Breath Ascorbic Acid (Ascorbic Acid 250 Mg Tablet) 250 mg PO DAILY [facility] Last Admin: 11/05/20 08:09 Dose: 250 mg Documented by: Docusate Sodium (Docusate Sodium 100 Mg Capsule) 100 mg PO BID [facility] Last Admin: 11/05/20 08:09 Dose: 100 mg Documented by: Furosemide (Furosemide 20 Mg/2 Ml Vial) 20 mg IVPUSH DAILY [facility]; Protocol Last Admin: 11/05/20 08:09 Dose: 20 mg Documented by: Ceftriaxone Sodium 1 gm/ (Sodium Chloride) 50 mls @ 100 mls/hr IV Q24H [facility] Last Infusion: 11/04/20 16:16 Dose: Infused Documented by: Loratadine (Loratadine 10 Mg Tablet) 5 mg PO DAILY PRN PRN Reason: Allergic Reaction Last Admin: 11/05/20 08:09 Dose: 5 mg Documented by: Melatonin (Melatonin 3 Mg Tablet) 6 mg PO BEDTIME PRN PRN Reason: Insomnia Last Admin: 11/04/20 20:07 Dose: 6 mg Documented by: Multivitamins/Vitamin C (Multivitamin Tablet) 1 tab PO DAILY [facility] Last Admin: 11/05/20 08:09 Dose: 1 tab Documented by: Olanzapine (Olanzapine 2.5 Mg Tablet) 2.5 mg PO BEDTIME [facility] Last Admin: 11/04/20 20:07 Dose: 2.5 mg Documented by: Omeprazole (Omeprazole 20 Mg Capsule.) 20 mg PO DAILY@0630 [facility] Last Admin: 11/05/20 05:32 Dose: 20 mg Documented by: Pharmacy Consult (Consult Rx Perform Med Rec) 1 each MISCELLANE ONCE PRN PRN Reason: Consult order Polyethylene Glycol (Polyethylene Glycol 3350 17 Gm Powd.Pack) 17 gm PO DAILY [facility] Last Admin: 11/05/20 08:16 Dose: Not Given Documented by: Prednisone (Prednisone 20 Mg Tablet) 40 mg PO DAILY [facility] Last Admin: 11/05/20 08:09 Dose: 40 mg Documented by: Warfarin Sodium (Warfarin Sodium 7.5 Mg Tablet) 7.5 mg PO DAILY@1800 [facility] Last Admin: 11/04/20 15:41 Dose: 7.5 mg Documented by: Time Spent With Patient Time: Total time spent is greater than 50% in coordination of care (as documented) at patient's floor/unit and/or counseling patient: Time with patient: less than 15 minutes Progress Note: Quality Stroke Does the patient have a stroke diagnosis?: No Reason for No Anti-thrombotic by Day Two: N/A - Med Ordered Procedures Date of Service Date of Service: 11/05/20
--- NOTE | 2020-11-05 10:57 | PHA.PROG ---
Admission Date/Time: November 03, 2020 13:05 Indication: BACTEREMIA Weight in k.006 kg Adjusted body weight in K.4 KG [place] body weight in K.8 KG Obesity Dosing Indication % IBW: Serum Creatinine - Last 168 Hours 11/03/20 11/04/20 11/05/20 10:42 05:19 05:57 Creatinine 0.70 0.70 0.83 Estimated CrCl and GFR - Last 168 Hours 11/03/20 11/04/20 11/05/20 10:42 05:19 05:57 Estim Creat Clear Calc 100.5 100.5 84.7 Estimated GFR > 60 > 60 > 60 Vancomycin Loading Dose: N/A Current Vancomycin Dosing Regimen: 1500 MG Q24H Vancomycin Monitoring using AUC goal of 400 - 600 range with trough as surrogate marker: PREDICTED AUC 464, PREDICTED TROUGH 10.6 Date and Time for next Vancomycin Level to be drawn: 11/07/20 @1000 ( BEFORE 3RD DOSE) Pharmacist Comments on Vancomycin Plan: Vancomycin dosing will take advantage of GFS IT as a clinical decision support tool that uses Bayesian modeling to calculate individual patient's pharmacokinetic parameters and forecast the patient's drug concentration time course with the target goal AUC 24 range of 400 - 600 mg/L/hr.
[2020-11-05] MEDS: vancomycin HCL 1,500 MG in 0.9 % Sodium Chloride 500 ML 333.33 MG IV (11:51)
--- NOTE | 2020-11-05 12:23 | HO.PM.IMCN ---
History of Present Illness Data of Consult Primary Care Provider: [facility] Medical History Diabetes HTN (hypertension) Thyroid nodule Family History (Updated 11/04/20 @ 10:23 by Pablo Rosas MD) Mother CHF (congestive heart failure) Father Myocardial infarct Social History Household Members: Other Housing: Jail Do you presently have visiting nurse or other home services: Yes Patient Tobacco Use Status: Former Tobacco user Use of substances other than those prescribed or required for medical reasons: No Currently Displaying Signs/Symptoms of Drug Intoxication Withdrawal: No Have you been hit, kicked, punched, or otherwise hurt by someone within the past year? If so, by whom?: No Do you feel safe in your current relationship?: No Current Relationship Is there a partner from a previous relationship who is making you feel unsafe now?: No Are you made to feel afraid or neglected: No Advance Directives: Yes Advance Directives on File: No Advance Directives Date on File: 11/03/20 Do you have thoughts of harming others: None Do you have a plan to hurt others: No Plan Recently lost weight without trying: Unsure Nutrition Risks: No Nutritional Risk Patient : No : No Poor oral hygiene: No service: No Meds Allergies Allergy/AdvReac Type Severity Reaction Status Date / Time No Known Allergies Allergy Verified 07/21/20 22:06 Active Medications: Current Medications Acetaminophen (Acetaminophen 325 Mg Tablet) 650 mg PO Q6H PRN PRN Reason: pain Last Admin: 11/05/20 08:09 Dose: 650 mg Documented by: Albuterol Sulfate (Albuterol Sulfate 90 Mcg 8 Gm Inhaler) 2 puff INHALE Q4H PRN PRN Reason: Wheezing Albuterol/Ipratropium (Albuterol/Iprat 2.5/0.5mg 3 Ml Ampul.Neb) 3 ml INHALE RQ4H [facility] Last Admin: 11/05/20 11:08 Dose: 3 ml Documented by: Albuterol/Ipratropium (Albuterol/Iprat 2.5/0.5mg 3 Ml Ampul.Neb) 3 ml INHALE RQ4H PRN PRN Reason: Shortness of Breath Ascorbic Acid (Ascorbic Acid 250 Mg Tablet) 250 mg PO DAILY [facility] Last Admin: 11/05/20 08:09 Dose: 250 mg Documented by: Docusate Sodium (Docusate Sodium 100 Mg Capsule) 100 mg PO BID [facility] Last Admin: 11/05/20 08:09 Dose: 100 mg Documented by: Furosemide (Furosemide 20 Mg/2 Ml Vial) 20 mg IVPUSH DAILY [facility]; Protocol Last Admin: 11/05/20 08:09 Dose: 20 mg Documented by: Ceftriaxone Sodium 1 gm/ (Sodium Chloride) 50 mls @ 100 mls/hr IV Q24H [facility] Last Infusion: 11/04/20 16:16 Dose: Infused Documented by: Vancomycin HCl 1,500 mg/ (Sodium Chloride) 500 mls @ 333.333 mls/hr IV Q24H [facility] Last Admin: 11/05/20 11:51 Dose: 333.33 mls/hr Documented by: Loratadine (Loratadine 10 Mg Tablet) 5 mg PO DAILY PRN PRN Reason: Allergic Reaction Last Admin: 11/05/20 08:09 Dose: 5 mg Documented by: Melatonin (Melatonin 3 Mg Tablet) 6 mg PO BEDTIME PRN PRN Reason: Insomnia Last Admin: 11/04/20 20:07 Dose: 6 mg Documented by: Multivitamins/Vitamin C (Multivitamin Tablet) 1 tab PO DAILY [facility] Last Admin: 11/05/20 08:09 Dose: 1 tab Documented by: Olanzapine (Olanzapine 2.5 Mg Tablet) 2.5 mg PO BEDTIME [facility] Last Admin: 11/04/20 20:07 Dose: 2.5 mg Documented by: Omeprazole (Omeprazole 20 Mg Capsule.Dr) 20 mg PO DAILY@0630 [facility] Last Admin: 11/05/20 05:32 Dose: 20 mg Documented by: Pharmacy Consult (Consult Rx Perform Med Rec) 1 each MISCELLANE ONCE PRN PRN Reason: Consult order Pharmacy Consult (Consult Rx Vancomycin Dosing) 1 each MISCELLANE DAILY PRN PRN Reason: Consult order Polyethylene Glycol (Polyethylene Glycol 3350 17 Gm Powd.Pack) 17 gm PO DAILY [facility] Last Admin: 11/05/20 08:16 Dose: Not Given Documented by: Prednisone (Prednisone 20 Mg Tablet) 40 mg PO DAILY [facility] Last Admin: 11/05/20 08:09 Dose: 40 mg Documented by: Warfarin Sodium (Warfarin Sodium 7.5 Mg Tablet) 7.5 mg PO DAILY@1800 [facility] Last Admin: 11/04/20 15:41 Dose: 7.5 mg Documented by: Home Medications Medication Instructions Recorded Confirmed Last Taken Type albuterol sulfate 90 mcg/actuation 2 puff INHALATION Q4-6H PRN 11/03/20 11/03/20 Unknown History aerosol inhaler (ProAir HFA) ascorbic acid (vitamin C) 500 mg 250 mg PO DAILY 11/03/20 11/03/20 Unknown History tablet (Vitamin C) cetirizine 1 mg/mL oral solution 5 mg PO DAILY PRN 11/03/20 11/03/20 Unknown History melatonin 5 mg tablet 5 mg PO BEDTIME PRN 11/03/20 11/03/20 Unknown History multivitamin 1 tab PO DAILY 11/03/20 11/03/20 Unknown History olanzapine 2.5 mg tablet 2.5 mg PO BEDTIME 11/03/20 11/03/20 Unknown History ondansetron 8 mg disintegrating 8 mg PO DAILY PRN 11/03/20 11/03/20 Unknown History tablet polyethylene glycol 3350 17 gram 17 g PO DAILY 11/03/20 11/03/20 Unknown History oral powder packet (Miralax) sennosides 8.6 mg tablet (senna) 17.2 mg PO BEDTIME 11/03/20 11/03/20 Unknown History warfarin 1 mg tablet 7 mg PO DAILY 11/03/20 11/03/20 Unknown History Physical Exam Vital Signs and Narrative: Vital Signs: Last Vital Signs Temp 97.8 F 11/05/20 11:37 Pulse 88 11/05/20 11:37 Resp 20 11/05/20 11:37 BP 144/65 H 11/05/20 11:37 Pulse Ox 92 11/05/20 11:37 Oxygen Flow Rate 4 11/03/20 09:19 Body Mass Index 52.9 Results Labs CBC and Chem 7: 11/05/20 05:57 11/05/20 05:57 Assessment and Plan Anemia --appears chronic, there is no no evidence acute loss, H/H from [place] at the begning of the month, essentially unchanged. Stool occult blood is negative. Can follow up on outpatient basis with GI 2.Gram positive cocci bacteremia and gram positive cocci in the urine. Continue Vancomycin and await sensitivity, ID consult 3.Acute hypoxemic respiratory failure-probably mixed COPD/mild CHF exacerbation and chronic hypoventilation. Negative PE by CTA -Bronchodilators and steroid for COPD -Lasix for heart failure 5. h/o of DVT, h/o of RV thrombus--continue coumadin, adjsut for INR 2 to 3 6. hx of cva and left sided Cva: inr subtherpeutic adjusted? warfarin to 7.5? mg over last evenin goal inr between 2-3 7. Constipation: Continue laxatives Passing gases, had 1 bowel movement, yesterday, no abdominal pain
--- NOTE | 2020-11-05 12:27 | P.PNIM_ITS ---
Subjective Subjective Date of Service: 11/05/20 Interval History: f/u on anemia, bacteremia Review of Systems no fever no gi bleeding Physical Exam Vital Signs: Vital Signs: Last Vital Signs Temp 97.8 F 11/05/20 11:37 Pulse 88 11/05/20 11:37 Resp 20 11/05/20 11:37 BP 144/65 H 11/05/20 11:37 Pulse Ox 92 11/05/20 11:37 Oxygen Flow Rate 4 11/03/20 09:19 Body Mass Index 52.9 General: AO X 3, no acute distress Resp: CTA bilateral CVS: S1,S2,RRR GI: +BS, NT, no distention Skin: No rash, wound on on right leg Neuro: motor grossly intact Psych: appropriate affect Objective Data Active Medications Acetaminophen (Acetaminophen 325 Mg Tablet) 650 mg PO Q6H PRN PRN Reason: pain Last Admin: 11/05/20 08:09 Dose: 650 mg Documented by: YURIY Albuterol Sulfate (Albuterol Sulfate 90 Mcg 8 Gm Inhaler) 2 puff INHALE Q4H PRN PRN Reason: Wheezing Albuterol/Ipratropium (Albuterol/Iprat 2.5/0.5mg 3 Ml Ampul.Neb) 3 ml INHALE RQ4H [facility] Last Admin: 11/05/20 11:08 Dose: 3 ml Documented by: LING Albuterol/Ipratropium (Albuterol/Iprat 2.5/0.5mg 3 Ml Ampul.Neb) 3 ml INHALE RQ4H PRN PRN Reason: Shortness of Breath Ascorbic Acid (Ascorbic Acid 250 Mg Tablet) 250 mg PO DAILY [facility] Last Admin: 11/05/20 08:09 Dose: 250 mg Documented by: YURIY Docusate Sodium (Docusate Sodium 100 Mg Capsule) 100 mg PO BID [facility] Last Admin: 11/05/20 08:09 Dose: 100 mg Documented by: YURIY Furosemide (Furosemide 20 Mg/2 Ml Vial) 20 mg IVPUSH DAILY [facility]; Protocol Last Admin: 11/05/20 08:09 Dose: 20 mg Documented by: YURIY Ceftriaxone Sodium 1 gm/ (Sodium Chloride) 50 mls @ 100 mls/hr IV Q24H [facility] Last Infusion: 11/04/20 16:16 Dose: 0 mls/hr Documented by: TAO Vancomycin HCl 1,500 mg/ (Sodium Chloride) 500 mls @ 333.333 mls/hr IV Q24H [facility] Last Admin: 11/05/20 11:51 Dose: 333.33 mls/hr Documented by: YURIY Loratadine (Loratadine 10 Mg Tablet) 5 mg PO DAILY PRN PRN Reason: Allergic Reaction Last Admin: 11/05/20 08:09 Dose: 5 mg Documented by: YURIY Melatonin (Melatonin 3 Mg Tablet) 6 mg PO BEDTIME PRN PRN Reason: Insomnia Last Admin: 11/04/20 20:07 Dose: 6 mg Documented by: LEEANN Multivitamins/Vitamin C (Multivitamin Tablet) 1 tab PO DAILY [facility] Last Admin: 11/05/20 08:09 Dose: 1 tab Documented by: YURIY Olanzapine (Olanzapine 2.5 Mg Tablet) 2.5 mg PO BEDTIME [facility] Last Admin: 11/04/20 20:07 Dose: 2.5 mg Documented by: LEEANN Omeprazole (Omeprazole 20 Mg Capsule.Dr) 20 mg PO DAILY@0630 [facility] Last Admin: 11/05/20 05:32 Dose: 20 mg Documented by: LEEANN Pharmacy Consult (Consult Rx Perform Med Rec) 1 each MISCELLANE ONCE PRN PRN Reason: Consult order Pharmacy Consult (Consult Rx Vancomycin Dosing) 1 each MISCELLANE DAILY PRN PRN Reason: Consult order Polyethylene Glycol (Polyethylene Glycol 3350 17 Gm Powd.Pack) 17 gm PO DAILY [facility] Last Admin: 11/05/20 08:16 Dose: Not Given Documented by: YURIY Non-Admin Reason: Patient Refused Prednisone (Prednisone 20 Mg Tablet) 40 mg PO DAILY [facility] Last Admin: 11/05/20 08:09 Dose: 40 mg Documented by: YURIY Warfarin Sodium (Warfarin Sodium 4 Mg Tablet) 8 mg PO DAILY@1800 [facility] Labs CBC & Chem 7: 11/05/20 05:57 11/05/20 05:57 Labs: Laboratory Results - last 24 hr 11/03/20 11/05/20 11/05/20 12:10 05:57 05:57 MCV 83.0 MCH 23.0 L MCHC 27.7 L RDW 18.1 H Plt Count 243 MPV 8.9 L Absolute Nucleated RBC 0.000 Nucleated RBC % (auto) 0.0 PT INR Anion Gap 10 L Estim Creat Clear Calc 84.7 Estimated GFR > 60 Random Glucose 142 H Lactic Acid 0.6 Calcium 8.4 B-Natriuretic Peptide 11/05/20 11/05/20 05:57 08:42 MCV MCH MCHC RDW Plt Count MPV Absolute Nucleated RBC Nucleated RBC % (auto) PT 18.6 H D INR 1.6 H Anion Gap Estim Creat Clear Calc Estimated GFR Random Glucose Lactic Acid Calcium B-Natriuretic Peptide 388 H Microbiology Microbiology Results: Microbiology 11/03/20 10:41 Blood Culture - Preliminary Blood - Venous Staphylococcus species 11/03/20 10:41 Blood Culture - Preliminary Blood - Venous Prelim: GPC Gram Stain only 11/03/20 15:21 Urine Culture - Preliminary Urine clean catch - Urine llanes top Proteus mirabilis Gram positive cocci Assessment and Plan (1) Acute blood loss anemia: Status: Acute (2) Weakness: Status: Acute (3) DVT of lower extremity (deep venous thrombosis): Status: Acute Assessment and Plan: Anemia --appears chronic, there is no no evidence acute loss, H/H from [place] at the begning of the month, essentially unchanged. Stool occult blood is negative. Can follow up on outpatient basis with GI 2.Gram positive cocci bacteremia and gram positive cocci in the urine. Continue Vancomycin and await sensitivity, ID consult 3.Acute hypoxemic respiratory failure-probably mixed COPD/mild CHF exacerbation and chronic hypoventilation. Negative PE by CTA -Bronchodilators and steroid for COPD -Lasix for heart failure 5. h/o of DVT, h/o of RV thrombus--continue coumadin, adjsut for INR 2 to 3 6. hx of cva and left sided Cva: inr subtherpeutic Increase coumadin to 8 goal inr between 2-3 7. Constipation: Continue laxatives Passing gases, had 1 bowel movement, yesterday, no abdominal pain Quality Stroke Does the patient have a stroke diagnosis?: No Reason for No Anti-thrombotic by Day Two: N/A - Med Ordered VTE Prior VTE?: Yes VTE Risk Level:: Medical - moderate - high VTE Device Contraindication: N/A - Device Ordered VTE Drug Contraindication: N/A - Med Ordered
--- NOTE | 2020-11-05 13:10 | P.PNIM_ITS ---
Subjective Subjective Date of Service: 11/05/20 Physical Exam Vital Signs: Vital Signs: Last Vital Signs Temp 97.8 F 11/05/20 11:37 Pulse 88 11/05/20 11:37 Resp 20 11/05/20 11:37 BP 144/65 H 11/05/20 11:37 Pulse Ox 92 11/05/20 11:37 Oxygen Flow Rate 4 11/03/20 09:19 Body Mass Index 52.9 Objective Data Active Medications Acetaminophen (Acetaminophen 325 Mg Tablet) 650 mg PO Q6H PRN PRN Reason: pain Last Admin: 11/05/20 08:09 Dose: 650 mg Documented by: YURIY Albuterol Sulfate (Albuterol Sulfate 90 Mcg 8 Gm Inhaler) 2 puff INHALE Q4H PRN PRN Reason: Wheezing Albuterol/Ipratropium (Albuterol/Iprat 2.5/0.5mg 3 Ml Ampul.Neb) 3 ml INHALE RQ4H [facility] Last Admin: 11/05/20 11:08 Dose: 3 ml Documented by: LING Albuterol/Ipratropium (Albuterol/Iprat 2.5/0.5mg 3 Ml Ampul.Neb) 3 ml INHALE RQ4H PRN PRN Reason: Shortness of Breath Ascorbic Acid (Ascorbic Acid 250 Mg Tablet) 250 mg PO DAILY [facility] Last Admin: 11/05/20 08:09 Dose: 250 mg Documented by: YURIY Docusate Sodium (Docusate Sodium 100 Mg Capsule) 100 mg PO BID [facility] Last Admin: 11/05/20 08:09 Dose: 100 mg Documented by: YURIY Furosemide (Furosemide 20 Mg/2 Ml Vial) 20 mg IVPUSH DAILY [facility]; Protocol Last Admin: 11/05/20 08:09 Dose: 20 mg Documented by: YURIY Ceftriaxone Sodium 1 gm/ (Sodium Chloride) 50 mls @ 100 mls/hr IV Q24H [facility] Last Infusion: 11/04/20 16:16 Dose: 0 mls/hr Documented by: TAO Vancomycin HCl 1,500 mg/ (Sodium Chloride) 500 mls @ 333.333 mls/hr IV Q24H [facility] Last Admin: 11/05/20 11:51 Dose: 333.33 mls/hr Documented by: YURIY Loratadine (Loratadine 10 Mg Tablet) 5 mg PO DAILY PRN PRN Reason: Allergic Reaction Last Admin: 11/05/20 08:09 Dose: 5 mg Documented by: YURIY Melatonin (Melatonin 3 Mg Tablet) 6 mg PO BEDTIME PRN PRN Reason: Insomnia Last Admin: 11/04/20 20:07 Dose: 6 mg Documented by: LEEANN Multivitamins/Vitamin C (Multivitamin Tablet) 1 tab PO DAILY [facility] Last Admin: 11/05/20 08:09 Dose: 1 tab Documented by: YURIY Olanzapine (Olanzapine 2.5 Mg Tablet) 2.5 mg PO BEDTIME [facility] Last Admin: 11/04/20 20:07 Dose: 2.5 mg Documented by: LEEANN Omeprazole (Omeprazole 20 Mg Capsule.Dr) 20 mg PO DAILY@0630 [facility] Last Admin: 11/05/20 05:32 Dose: 20 mg Documented by: LEEANN Pharmacy Consult (Consult Rx Perform Med Rec) 1 each MISCELLANE ONCE PRN PRN Reason: Consult order Pharmacy Consult (Consult Rx Vancomycin Dosing) 1 each MISCELLANE DAILY PRN PRN Reason: Consult order Polyethylene Glycol (Polyethylene Glycol 3350 17 Gm Powd.Pack) 17 gm PO DAILY [facility] Last Admin: 11/05/20 08:16 Dose: Not Given Documented by: YURIY Non-Admin Reason: Patient Refused Prednisone (Prednisone 20 Mg Tablet) 40 mg PO DAILY [facility] Last Admin: 11/05/20 08:09 Dose: 40 mg Documented by: YURIY Warfarin Sodium (Warfarin Sodium 4 Mg Tablet) 8 mg PO DAILY@1800 [facility] Labs CBC & Chem 7: 11/05/20 05:57 11/05/20 05:57 Labs: Laboratory Results - last 24 hr 11/03/20 11/05/20 11/05/20 12:10 05:57 05:57 MCV 83.0 MCH 23.0 L MCHC 27.7 L RDW 18.1 H Plt Count 243 MPV 8.9 L Absolute Nucleated RBC 0.000 Nucleated RBC % (auto) 0.0 PT INR Anion Gap 10 L Estim Creat Clear Calc 84.7 Estimated GFR > 60 Random Glucose 142 H Lactic Acid 0.6 Calcium 8.4 B-Natriuretic Peptide 11/05/20 11/05/20 05:57 08:42 MCV MCH MCHC RDW Plt Count MPV Absolute Nucleated RBC Nucleated RBC % (auto) PT 18.6 H D INR 1.6 H Anion Gap Estim Creat Clear Calc Estimated GFR Random Glucose Lactic Acid Calcium B-Natriuretic Peptide 388 H ABG ABG results: This is a test to see if the speech hadley will transfer text properly from the speech box using the command ?transfer text?. Microbiology Microbiology Results: Microbiology 11/03/20 10:41 Blood Culture - Preliminary Blood - Venous Staphylococcus species 11/03/20 10:41 Blood Culture - Preliminary Blood - Venous Prelim: GPC Gram Stain only 11/03/20 15:21 Urine Culture - Preliminary Urine clean catch - Urine llanes top Proteus mirabilis Gram positive cocci Quality Stroke Does the patient have a stroke diagnosis?: No Reason for No Anti-thrombotic by Day Two: N/A - Med Ordered VTE Prior VTE?: Yes VTE Risk Level:: Medical - moderate - high VTE Device Contraindication: N/A - Device Ordered VTE Drug Contraindication: N/A - Med Ordered
--- NOTE | 2020-11-05 15:56 | P.CNID_ITS ---
History of Present Illness Data of Consult Service Date: 11/05/20 Requesting physician: Adam Zhang Primary Care Provider: [facility] Reason for consult: bacteremia,urine proteus mirabilis She presents from snf with weakness and fatigue. She has mental health concerns as well with depression. She had hypoxia and blood cultures show staph species. Urine shows proteus mirabilis. Review of Systems Review of Systems: Yes all other systems are reviewed and are negative PMFSH Past Medical History Medical History (Updated 11/05/20 @ 16:04 by Mary Jo Schofield MD) Bacteremia due to Staphylococcus Diabetes HTN (hypertension) Proteus (mirabilis) (morganii) as the cause of diseases classified elsewhere Thyroid nodule Family History Family History Mother CHF (congestive heart failure) Father Myocardial infarct Social History Social History Household Members: Other Housing: Group Home Do you presently have visiting nurse or other home services: Yes Patient Tobacco Use Status: Former Tobacco user Use of substances other than those prescribed or required for medical reasons: No Currently Displaying Signs/Symptoms of Drug Intoxication Withdrawal: No Have you been hit, kicked, punched, or otherwise hurt by someone within the past year? If so, by whom?: No Do you feel safe in your current relationship?: No Current Relationship Is there a partner from a previous relationship who is making you feel unsafe now?: No Are you made to feel afraid or neglected: No Advance Directives: Yes Advance Directives on File: No Advance Directives Date on File: 11/03/20 Do you have thoughts of harming others: None Do you have a plan to hurt others: No Plan Recently lost weight without trying: Unsure Nutrition Risks: No Nutritional Risk Patient : No : No Poor oral hygiene: No service: No Meds Allergies Allergy/AdvReac Type Severity Reaction Status Date / Time No Known Allergies Allergy Verified 07/21/20 22:06 Active Medications: Current Medications Acetaminophen (Acetaminophen 325 Mg Tablet) 650 mg PO Q6H PRN PRN Reason: pain Last Admin: 11/05/20 08:09 Dose: 650 mg Documented by: Albuterol Sulfate (Albuterol Sulfate 90 Mcg 8 Gm Inhaler) 2 puff INHALE Q4H PRN PRN Reason: Wheezing Albuterol/Ipratropium (Albuterol/Iprat 2.5/0.5mg 3 Ml Ampul.Neb) 3 ml INHALE RQ4H [facility] Last Admin: 11/05/20 15:05 Dose: 3 ml Documented by: Albuterol/Ipratropium (Albuterol/Iprat 2.5/0.5mg 3 Ml Ampul.Neb) 3 ml INHALE RQ4H PRN PRN Reason: Shortness of Breath Ascorbic Acid (Ascorbic Acid 250 Mg Tablet) 250 mg PO DAILY [facility] Last Admin: 11/05/20 08:09 Dose: 250 mg Documented by: Docusate Sodium (Docusate Sodium 100 Mg Capsule) 100 mg PO BID [facility] Last Admin: 11/05/20 08:09 Dose: 100 mg Documented by: Furosemide (Furosemide 20 Mg/2 Ml Vial) 20 mg IVPUSH DAILY [facility]; Protocol Last Admin: 11/05/20 08:09 Dose: 20 mg Documented by: Ceftriaxone Sodium 1 gm/ (Sodium Chloride) 50 mls @ 100 mls/hr IV Q24H [facility] Last Infusion: 11/04/20 16:16 Dose: Infused Documented by: Vancomycin HCl 1,500 mg/ (Sodium Chloride) 500 mls @ 333.333 mls/hr IV Q24H [facility] Last Infusion: 11/05/20 13:42 Dose: Infused Documented by: Loratadine (Loratadine 10 Mg Tablet) 5 mg PO DAILY PRN PRN Reason: Allergic Reaction Last Admin: 11/05/20 08:09 Dose: 5 mg Documented by: Melatonin (Melatonin 3 Mg Tablet) 6 mg PO BEDTIME PRN PRN Reason: Insomnia Last Admin: 11/04/20 20:07 Dose: 6 mg Documented by: Multivitamins/Vitamin C (Multivitamin Tablet) 1 tab PO DAILY [facility] Last Admin: 11/05/20 08:09 Dose: 1 tab Documented by: Olanzapine (Olanzapine 2.5 Mg Tablet) 2.5 mg PO BEDTIME [facility] Last Admin: 11/04/20 20:07 Dose: 2.5 mg Documented by: Omeprazole (Omeprazole 20 Mg Capsule.) 20 mg PO DAILY@0630 [facility] Last Admin: 11/05/20 05:32 Dose: 20 mg Documented by: Pharmacy Consult (Consult Rx Perform Med Rec) 1 each MISCELLANE ONCE PRN PRN Reason: Consult order Pharmacy Consult (Consult Rx Vancomycin Dosing) 1 each MISCELLANE DAILY PRN PRN Reason: Consult order Polyethylene Glycol (Polyethylene Glycol 3350 17 Gm Powd.Pack) 17 gm PO DAILY [facility] Last Admin: 11/05/20 08:16 Dose: Not Given Documented by: Prednisone (Prednisone 20 Mg Tablet) 40 mg PO DAILY [facility] Last Admin: 11/05/20 08:09 Dose: 40 mg Documented by: Warfarin Sodium (Warfarin Sodium 4 Mg Tablet) 8 mg PO DAILY@1800 [facility] Home Medications Medication Instructions Recorded Confirmed Last Taken Type albuterol sulfate 90 mcg/actuation 2 puff INHALATION Q4-6H PRN 11/03/20 11/03/20 Unknown History aerosol inhaler (ProAir HFA) ascorbic acid (vitamin C) 500 mg 250 mg PO DAILY 11/03/20 11/03/20 Unknown History tablet (Vitamin C) cetirizine 1 mg/mL oral solution 5 mg PO DAILY PRN 11/03/20 11/03/20 Unknown History melatonin 5 mg tablet 5 mg PO BEDTIME PRN 11/03/20 11/03/20 Unknown History multivitamin 1 tab PO DAILY 11/03/20 11/03/20 Unknown History olanzapine 2.5 mg tablet 2.5 mg PO BEDTIME 11/03/20 11/03/20 Unknown History ondansetron 8 mg disintegrating 8 mg PO DAILY PRN 11/03/20 11/03/20 Unknown History tablet polyethylene glycol 3350 17 gram 17 g PO DAILY 11/03/20 11/03/20 Unknown History oral powder packet (Miralax) sennosides 8.6 mg tablet (senna) 17.2 mg PO BEDTIME 11/03/20 11/03/20 Unknown History warfarin 1 mg tablet 7 mg PO DAILY 11/03/20 11/03/20 Unknown History Physical Exam Vital Signs: Vital Signs: Last Vital Signs Temp 97.8 F 11/05/20 15:33 Pulse 90 11/05/20 15:33 Resp 18 11/05/20 15:33 BP 168/72 H 11/05/20 15:33 Pulse Ox 92 11/05/20 15:33 Oxygen Flow Rate 4 11/03/20 09:19 Body Mass Index 52.9 HENMT: Head: Yes normal to inspection Mouth: Normal oral and palatal mucosa present Cardio: Rate: regular rate Rhythm: regular rhythm GI: Palpation (GI): Soft to palpation and nontender Extrem: Other: clear area around wound VAC right leg Results Labs CBC & Chem 7: 11/05/20 05:57 11/05/20 05:57 Labs: Short CBC 11/05/20 Range/Units 05:57 WBC 7.1 (4.8-10.8) X10*3/uL Hgb 8.1 L (12.0-16.0) g/dl Hct 29.2 L (37-47) % Plt Count 243 (160-400) X10*3/uL BMP 11/05/20 05:57 Sodium 141 Potassium 4.0 Chloride 99 Carbon Dioxide 36 H BUN 16 Creatinine 0.83 Calcium 8.4 Microbiology Microbiology Results: Microbiology 11/03/20 10:41 Blood - Venous Blood Culture - Preliminary Staphylococcus species 11/03/20 10:41 Blood - Venous Blood Culture - Preliminary Prelim: GPC Gram Stain only 11/03/20 15:21 Urine clean catch - Urine llanes top Urine Culture - Preliminary Proteus mirabilis Gram positive cocci Assessment and Plan (1) Proteus (mirabilis) (morganii) as the cause of diseases classified elsewhere: Status: Acute Treat 10 days Ceftin po (2) Bacteremia due to Staphylococcus: Status: Acute patient reports PICC line 1-2 weeks ago at [place] This is hopefully contaminant Stop Vancomycin and check blood culture in two days
[2020-11-05] MEDS: Warfarin Sodium 4 MG TABLET 8 MG PO (16:54)
[2020-11-05] MEDS: cefTRIAXone sodium 1 GM in 0.9 % Sodium Chloride 50 ML IV (16:55)
[2020-11-05] MEDS: Melatonin 3 MG TABLET 6 MG PO (19:54)
[2020-11-06] VITALS (10 sets, daily range): BP systolic 138–159; BP diastolic 64–72; PULSE 17–86; RESP 17–20; TEMP 36.2–36.6; O2SAT 91–96
[2020-11-06 05:56] LABS: INTERNATIONAL NORM RATIO 1.5 (0.9-1.1); Prothrombin Time 17.3 SEC (9.9-13.0)
[2020-11-06] MEDS: Omeprazole 20 MG CAPSULE.DR PO (06:45)
[2020-11-06] MEDS: Albuterol/Iprat 2.5/0.5MG 3 ML AMPUL.NEB INHALE ×4 (07:47→19:45)
[2020-11-06] MEDS: Furosemide 20 MG/2 ML VIAL IVPUSH (08:20)
[2020-11-06] MEDS: Docusate Sodium 100 MG CAPSULE PO ×2 (08:20→20:27)
[2020-11-06] MEDS: predniSONE 20 MG TABLET 40 MG PO (08:20)
[2020-11-06] MEDS: Multivitamin TABLET 1 TAB PO (08:21)
[2020-11-06] MEDS: Ascorbic Acid 250 MG TABLET PO (08:21)
--- NOTE | 2020-11-06 09:25 | P.PNIM_ITS ---
Subjective Subjective Date of Service: 11/06/20 Interval History: Interval History:?f/u on anemia, bacteremia growing staph species Review of Systems no fever no gi bleeding Physical Exam Vital Signs: Vital Signs: Last Vital Signs Temp 97.9 F 11/06/20 07:43 Pulse 74 11/06/20 07:49 Resp 18 11/06/20 07:43 BP 153/72 H 11/06/20 07:43 Pulse Ox 92 11/06/20 07:43 Oxygen Flow Rate 4 11/03/20 09:19 Body Mass Index 52.9 General: AO X 3, no acute distress Resp:? CTA bilateral CVS: S1,S2,RRR GI: +BS, NT, no distention Skin: No rash, wound on on right leg--clear Neuro:? motor grossly intact Psych: appropriate affect Objective Data Active Medications Acetaminophen (Acetaminophen 325 Mg Tablet) 650 mg PO Q6H PRN PRN Reason: pain Last Admin: 11/05/20 19:53 Dose: 650 mg Documented by: CODI Albuterol Sulfate (Albuterol Sulfate 90 Mcg 8 Gm Inhaler) 2 puff INHALE Q4H PRN PRN Reason: Wheezing Albuterol/Ipratropium (Albuterol/Iprat 2.5/0.5mg 3 Ml Ampul.Neb) 3 ml INHALE RQ4H [facility] Last Admin: 11/06/20 07:47 Dose: 3 ml Documented by: FRIDA Albuterol/Ipratropium (Albuterol/Iprat 2.5/0.5mg 3 Ml Ampul.Neb) 3 ml INHALE RQ4H PRN PRN Reason: Shortness of Breath Ascorbic Acid (Ascorbic Acid 250 Mg Tablet) 250 mg PO DAILY [facility] Last Admin: 11/06/20 08:21 Dose: 250 mg Documented by: YURIY Docusate Sodium (Docusate Sodium 100 Mg Capsule) 100 mg PO BID [facility] Last Admin: 11/06/20 08:20 Dose: 100 mg Documented by: YURIY Furosemide (Furosemide 20 Mg/2 Ml Vial) 20 mg IVPUSH DAILY [facility]; Protocol Last Admin: 11/06/20 08:20 Dose: 20 mg Documented by: YURIY Ceftriaxone Sodium 1 gm/ (Sodium Chloride) 50 mls @ 100 mls/hr IV Q24H [facility] Last Infusion: 11/05/20 17:00 Dose: 0 mls/hr Documented by: YURIY Vancomycin HCl 1,500 mg/ (Sodium Chloride) 500 mls @ 333.333 mls/hr IV Q24H [facility] Last Infusion: 11/05/20 13:42 Dose: 0 mls/hr Documented by: YURIY Loratadine (Loratadine 10 Mg Tablet) 5 mg PO DAILY PRN PRN Reason: Allergic Reaction Last Admin: 11/05/20 08:09 Dose: 5 mg Documented by: YURIY Melatonin (Melatonin 3 Mg Tablet) 6 mg PO BEDTIME PRN PRN Reason: Insomnia Last Admin: 11/05/20 19:54 Dose: 6 mg Documented by: CODI Multivitamins/Vitamin C (Multivitamin Tablet) 1 tab PO DAILY [facility] Last Admin: 11/06/20 08:21 Dose: 1 tab Documented by: YURIY Olanzapine (Olanzapine 2.5 Mg Tablet) 2.5 mg PO BEDTIME [facility] Last Admin: 11/05/20 20:43 Dose: Not Given Documented by: CODI Non-Admin Reason: Patient Refused Omeprazole (Omeprazole 20 Mg Capsule.) 20 mg PO DAILY@0630 [facility] Last Admin: 11/06/20 06:45 Dose: 20 mg Documented by: CODI Pharmacy Consult (Consult Rx Perform Med Rec) 1 each MISCELLANE ONCE PRN PRN Reason: Consult order Pharmacy Consult (Consult Rx Vancomycin Dosing) 1 each MISCELLANE DAILY PRN PRN Reason: Consult order Polyethylene Glycol (Polyethylene Glycol 3350 17 Gm Powd.Pack) 17 gm PO DAILY [facility] Last Admin: 11/06/20 08:26 Dose: Not Given Documented by: YURIY Non-Admin Reason: Patient Refused Prednisone (Prednisone 20 Mg Tablet) 40 mg PO DAILY [facility] Last Admin: 11/06/20 08:20 Dose: 40 mg Documented by: YURIY Warfarin Sodium (Warfarin Sodium 4 Mg Tablet) 8 mg PO DAILY@1800 [facility] Last Admin: 11/05/20 16:54 Dose: 8 mg Documented by: YURIY Labs CBC & Chem 7: 11/05/20 05:57 11/05/20 05:57 Labs: Laboratory Results - last 24 hr 11/03/20 11/06/20 12:10 05:37 PT 17.3 H INR 1.5 H Lactic Acid 0.6 Microbiology Microbiology Results: Microbiology 11/03/20 10:41 Blood Culture - Preliminary Blood - Venous Staphylococcus species 11/03/20 10:41 Blood Culture - Final Blood - Venous Staphylococcus epidermidis 11/03/20 15:21 Urine Culture - Preliminary Urine clean catch - Urine llanes top Proteus mirabilis Gram positive cocci Assessment and Plan (1) Acute blood loss anemia: Status: Acute (2) Weakness: Status: Acute (3) DVT of lower extremity (deep venous thrombosis): Status: Acute Assessment and Plan: Anemia --appears chronic, there is no no evidence acute loss, H/H from [facility] at the begning of the month, essentially unchanged. Stool occult blood is negative. Can follow up on outpatient basis with GI 2.Gram positive cocci bacteremia and gram positive cocci in the urine. Thus far staph species, Continue Vancomycin and await sensitivity, ID consult 3.Acute hypoxemic respiratory failure-probably mixed COPD/mild CHF exacerbation and chronic hypoventilation. Negative PE by CTA -Bronchodilators and steroid for COPD -Lasix for heart failure 5. h/o of DVT, h/o of RV thrombus--continue coumadin, adjsut for INR 2 to 3, adjust coumadin 6. hx of cva and left sided Cva: inr subtherpeutic Increase coumadin to 8 goal inr between 2-3 7. Constipation: Continue laxatives Passing gases, had 1 bowel movement, yesterday, no abdominal pain Quality Stroke Does the patient have a stroke diagnosis?: No Reason for No Anti-thrombotic by Day Two: N/A - Med Ordered VTE Prior VTE?: Yes VTE Risk Level:: Medical - moderate - high VTE Device Contraindication: N/A - Device Ordered VTE Drug Contraindication: N/A - Med Ordered
[2020-11-06] MEDS: vancomycin HCL 1,500 MG in 0.9 % Sodium Chloride 500 ML 333.33 MG IV (11:59)
--- NOTE | 2020-11-06 12:19 | MHC.CLN ---
F/U WOUND IS SURGICAL DEBRIDEMENT OF HEMATOMA AND NOT PRESSURE INJURY. CONTINUE WITH CARDIAC DIET AND ENSURE MAX PROTEIN SUPPLEMENT (300 KCAL, 60 G PROTEIN). PATIENT WITH SIGNIFICANT WEIGHT LOSS X 3 MONTHS. CURRENT INTAKE APPEARS GOOD/EXCELLENT.
[2020-11-06 12:45] LABS: Creatinine Clr Calc Pharmacy 92.6; Estimated Glomerular Filt Rate > 60
[2020-11-06] MEDS: Warfarin Sodium 4 MG TABLET 8 MG PO (17:22)
[2020-11-06] MEDS: cefTRIAXone sodium 1 GM in 0.9 % Sodium Chloride 50 ML IV (17:22)
[2020-11-06] MEDS: Acetaminophen 325 MG TABLET 650 MG PO (17:31)
[2020-11-06] MEDS: Melatonin 3 MG TABLET 6 MG PO (20:27)
[2020-11-07] VITALS: BP 137/57; PULSE 73; RESP 18; TEMP 36.4; O2SAT 97
[2020-11-07 04:00] VITALS: BP 142/63; PULSE 64; RESP 17; TEMP 35.9; O2SAT 96
[2020-11-07 05:59] LABS: INTERNATIONAL NORM RATIO 1.5 (0.9-1.1); Prothrombin Time 16.7 SEC (9.9-13.0)
[2020-11-07 06:09] LABS: Anion Gap 12 (12-20); Blood Urea Nitrogen 19 mg/dL (9-16); Calcium 8.5 mg/dL (8.4-10.2); Carbon Dioxide 32 mmol/L (22-29); Chloride 101 mmol/L (96-108); Estimated Glomerular Filt Rate > 60; Glucose Random 102 mg/dL (60-115); Potassium 3.8 mmol/L (3.3-5.1); Sodium 141 mmol/L (135-145)
[2020-11-07] MEDS: Omeprazole 20 MG CAPSULE.DR PO (06:16)
[2020-11-07 07:47] VITALS: BP 149/85; PULSE 72; RESP 16; TEMP 36.2; O2SAT 97
[2020-11-07 08:06] VITALS: PULSE 81; O2SAT 95
[2020-11-07] MEDS: Albuterol/Iprat 2.5/0.5MG 3 ML AMPUL.NEB INHALE ×2 (08:06→11:05)
[2020-11-07] MEDS: Multivitamin TABLET 1 TAB PO (08:17)
[2020-11-07] MEDS: Furosemide 20 MG/2 ML VIAL IVPUSH (08:17)
[2020-11-07] MEDS: polyethylene glycoL 3350 17 GM POWD.PACK PO (08:17)
[2020-11-07] MEDS: predniSONE 20 MG TABLET 40 MG PO (08:18)
[2020-11-07] MEDS: Docusate Sodium 100 MG CAPSULE PO (08:18)
[2020-11-07] MEDS: Ascorbic Acid 250 MG TABLET PO (08:18)
--- NOTE | 2020-11-07 09:52 | P.DS_ITS ---
DS: Providers Provider Date of Service: 11/05/20 Date of admission: 11/03/20 13:05 Primary care physician: PIPE CHAVEZ Consults: 11/03/20 16:16 Consult to Cardiology Routine Consulting Provider: Parag Baeur Reason for consultation: chf exceerbation Has provider been notified: No DS: Diagnosis Discharge Diagnosis (1) Acute diastolic (congestive) heart failure: Status: Acute (2) Acute blood loss anemia: Status: Acute (3) COPD (chronic obstructive pulmonary disease): Status: Acute DS: Summary Hospital Course Hospital Course: Chief Complaint: Oxygen sats low, anemia. 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 -she went to [facility] for worsening wound infection which she was started on Zosyn and had debridement on October 10, deep wound culture from October 10 Enterococcus and Pseudomonas, and midline was placed on 10/14 she was sent to the rehab to complete IV antibiotics Zosyn until October 23. Says says and has wound VAC. Patient does now the whole information about her history in [facility] we have requested the records. Current admission was requested as per ED provider for possible acute blood loss, also mild CHF. As my discussion with the patient patient was sent to the hospital because of desaturation in the group home she does not how much she was desaturating. Otherwise she says that her baseline short of breath gaming she is not worse, denies any orthopnea or Pnd. She has some leg swelling. She does not know if she gained any weight. Patient denies any nausea vomiting abdominal pain or melena as well as coffee- ground, she also denies any maranda bleeding recently. Denies any chest pain or nausea vomiting or weakness or numbness or cough or phlegm Lab imaging EKG personally reviewed and interpreted: Patient has susan drop in H&H from 17.5-8.9 range. Troponin:? 174 and repeat 50 range respectively EKG seems unchanged from before ct abdomen:? Shows constipation,?? Incidental Perinephric area stranding right- sided Shows pleural effusion and body wall edema. Chest x-ray:? Seems negative, except for possible atelectasis Social:? Seems functionally declined chronically sick will looking woman, ex- smoker she had the at least the 50 pack year history as per the patient, denies any recreational drugs or alcohol use. Hospital course: ? Anemia --appears chronic, there is no no evidence acute loss, H/H from [facility] at the begning of the month essentially unchanged. Stool occult blood is negative. Can follow up on outpatient basis with GI 2. UTI--Urine culture grew Klebsiella pneumonia and Enterococcus faecalis. Both sensitive to ampicillin and therefore will treat with Augmentin 3. Bacteremia--this was puzzling as there was no source, blood culture grew gram positive cocci so was started on Vancomyin--Final cultures turned tob 1 coag negative staph and 1 staph epidermidis and these are deemed to be contamination and therefore no further antibiotics needed at this time. 3.Acute hypoxemic respiratory failure-probably mixed COPD/mild CHF exacerbation and chronic hypoventilation. Negative PE by CTA Treated with bronchodilators and steroid for COPD and Lasix for heart failure and she is feeling much better -Lasix for heart failure 5. h/o of DVT, h/o of RV thrombus--INR has been subtherapeutic despite levels been adjusted, pharmacy is helping adjusting further, presently will be on 9 mg daily with INR goal of 2 to 3., follow INR 6. hx of cva and left sided Cva: to continue coumadin as above 7. Lower extremity wound--To continue wound Vac as before. Time Spent with Patient Time attestation: Total time spent providing and/or coordinating discharge services: Discharge coordination time: Greater than 30 minutes Quality: Stroke Does the patient have a stroke diagnosis?: No Physical Exam Vital Signs: Vital Signs: Last Vital Signs Temp 97.6 F 11/05/20 07:27 Pulse 85 11/05/20 07:27 Resp 20 11/05/20 07:27 BP 137/60 11/05/20 07:27 Pulse Ox 92 11/05/20 07:27 Oxygen Flow Rate 4 11/03/20 09:19 Body Mass Index 52.9 DS: Data Data Completed and Pending Labs on day of discharge: Laboratory Results - last 24 hr 11/03/20 11/03/20 11/05/20 10:42 12:10 05:57 WBC 7.1 RBC 3.52 L Hgb 8.1 L Hct 29.2 L MCV 83.0 MCH 23.0 L MCHC 27.7 L RDW 18.1 H Plt Count 243 MPV 8.9 L Absolute Nucleated RBC 0.000 Nucleated RBC % (auto) 0.0 PT INR Sodium Potassium Chloride Carbon Dioxide Anion Gap BUN Creatinine Estim Creat Clear Calc Estimated GFR Random Glucose Lactic Acid 0.6 Calcium B-Natriuretic Peptide Vitamin B12 277 Folate 11.2 11/05/20 11/05/20 11/05/20 05:57 05:57 08:42 WBC RBC Hgb Hct MCV MCH MCHC RDW Plt Count MPV Absolute Nucleated RBC Nucleated RBC % (auto) PT 18.6 H D INR 1.6 H Sodium 141 Potassium 4.0 Chloride 99 Carbon Dioxide 36 H Anion Gap 10 L BUN 16 Creatinine 0.83 Estim Creat Clear Calc 84.7 Estimated GFR > 60 Random Glucose 142 H Lactic Acid Calcium 8.4 B-Natriuretic Peptide 388 H Vitamin B12 Folate Preliminary micro results at discharge 11/03/20 10:41 Blood Culture - Preliminary Blood - Venous Staphylococcus species 11/03/20 10:41 Blood Culture - Preliminary Blood - Venous Prelim: GPC Gram Stain only 11/03/20 15:21 Urine Culture - Preliminary Urine clean catch - Urine llanes top Proteus mirabilis Gram positive cocci Discharge Plan Discharge Anticipated Discharge Date/Time: 11/07/20 10:18 Patient Disposition: Xfer SNF Discharge Diagnosis: Acute respiratory failure, UTI Referrals: [facility] [Outside] - 1 Day PIPE CHAVEZ [Primary Care Provider] - 1 Week Po,Lauren Michael MD [Physician] - 1 Month (JANUARY 07, 2021 1PM) Discharge Medications: New amoxicillin-pot clavulanate 875-125 mg Tablet 1 tab PO Q12H Qty: 9 RF: 0 furosemide [Lasix] 20 mg tablet 20 mg PO QAM Qty: 30 RF: 0 Continued multivitamin Tablet 1 tab PO DAILY RF: 0 polyethylene glycol 3350 [Miralax] 17 gram Powder In Packet 17 g PO DAILY RF: 0 olanzapine 2.5 mg Tablet 2.5 mg PO BEDTIME RF: 0 ondansetron 8 mg Tablet,Disintegrating 8 mg PO DAILY PRN (Reason: Nausea And Vomiting) RF: 0 ascorbic acid (vitamin C) [Vitamin C] 500 mg Tablet 250 mg PO DAILY RF: 0 albuterol sulfate [ProAir HFA] 90 mcg/actuation Hfa Aerosol Inhaler 2 puff INHALATION Q4-6H PRN (Reason: Wheezing) RF: 0 cetirizine 1 mg/mL Solution 5 mg PO DAILY PRN (Reason: Allergic Reaction) RF: 0 melatonin 5 mg Tablet 5 mg PO BEDTIME PRN (Reason: Insomnia) RF: 0 sennosides [senna] 8.6 mg Tablet 17.2 mg PO BEDTIME RF: 0 Changed warfarin 1 mg Tablet 9 mg PO DAILY Qty: 0 RF: 0 Discharge Orders: Discharge Order (Routine); Ordered 11/07/20 Ordered By: Adam Cote Diet: advance to usual diet Activity on Discharge: As tolerated Stand Alone Forms: Patient Portal Discharge page Care Plan Goals: Full recovery from respiraty failure and UTI Health Concerns: UTI, respriatory failure that has resolved Plan of Treatment: Take Augmentin as recommended and follow up with your doctor in a week check INR daily, goal is INR 2 to 3 Assessment: As above
[2020-11-07 10:53] LABS: Vancomycin Trough 14.2 mcg/mL (10.0-20.0)
[2020-11-07 11:07] VITALS: PULSE 81; O2SAT 97
--- NOTE | 2020-11-07 11:17 | HE.PHANOTE ---
Vancomycin Dosing: Changed to 1250 mg to reduce toxicity and still be therapeutic at AUC 488, trough 12.8, next level 11/09 @1000
[2020-11-07 11:28] VITALS: BP 137/53; PULSE 73; RESP 18; TEMP 36.3; O2SAT 95
[2020-11-07 12:25] LABS: COVID-19 Test Negative (Negative)
[2020-11-07] MEDS: vancomycin HCL 1,250 MG in 0.9 % Sodium Chloride 250 ML 166.67 MG IV (12:26)
[2020-11-07] MEDS: Amoxicillin/Potassium Clav 875 MG TABLET PO (13:27)
--- NOTE | 2020-11-07 13:33 | MHC.CM.PN ---
IMM 11/07/20, PT DISCHARGING BACK TO [facility] FOR STR, ACTION FOR BLS TRANPORT. PT HAS PCP APPT Josh/ELI NORWOOD ON 01/07/2021 AT 1PM, APPT IS IN PERSON AND PT'S SON PALLAVI IS AWARE.
== END 2020-11-07 15:54 | disposition skilled nursing facility (03) | DRG 689 ==
LOC: HO.ED 09:28 → HO.EDOVER 13:32 → HO.S3 14:29
PROVIDERS: Admitting Provider Internal Medicine; Emergency Provider Emergency Medicine Emergency Medical Services; PCP Emergency Medicine; Visit Provider Internal Medicine
DX: N39.0 Urinary tract infection, site not specified (principal); J96.21 Acute and chronic respiratory failure with hypoxia; I50.33 Acute on chronic diastolic (congestive) heart failure; J44.1 Chronic obstructive pulmonary disease with (acute) exacerbation; I69.854 Hemiplegia and hemiparesis following other cerebrovascular disease affecting left non-dominant side; Z68.43 Body mass index [BMI] 50.0-59.9, adult; R45.851 Suicidal ideations; Z20.822 Contact with and (suspected) exposure to COVID-19; D64.9 Anemia, unspecified; K59.00 Constipation, unspecified; R79.1 Abnormal coagulation profile; E66.01 Morbid (severe) obesity due to excess calories; B96.1 Klebsiella pneumoniae [K. pneumoniae] as the cause of diseases classified elsewhere; Z86.718 Personal history of other venous thrombosis and embolism; Z87.891 Personal history of nicotine dependence; Z79.01 Long term (current) use of anticoagulants; Z79.899 Other long term (current) drug therapy
CPT/HCPCS: 36415; 71045; 71275; 74176; 80048; 80202; 81001; 82077; 82272; 82565; 82607; 82728; 82746; 82803; 83036; 83540; 83605; 83880; 84484; 85014; 85018; 85025; 85027; 85379; 85610; 85730; 87040; 87077; 87086; 87088; 87147; 87186; 87205; 87635; 93005; 93306; 94640; 99284; 99285; J0696; J1940; J2920; J3370; Q9967

== ENCOUNTER 2021-01-07 13:43 | Inpatient (IN) | payer MEDICARE, MEDICAID, SELFPAY ==
[2021-01-07] VITALS (16 sets, daily range): BP systolic 107–187; BP diastolic 34–118; PULSE 71–112; RESP 16–27; TEMP 30.6–37.8; O2SAT 97–100; BMI 46.5
--- NOTE | ~2021-01-07 | XR_ITS ---
EXAMINATION: XR CHEST CLINICAL INFORMATION: Seizure COMPARISON: Previous chest x-ray and chest CTA October 2020 TECHNIQUE: Frontal view of the chest was obtained. FINDINGS: There is an endotracheal tube with tip 5 cm above the chandrika. There is a nasogastric tube projects over the stomach. The tip is not seen. The patient is rotated to the left. The cardiac silhouette is enlarged but appears stable. There is atelectasis at the lung bases, left greater than right. This appears similar to October 2020 exam. There is no pleural effusion or pneumothorax. There are degenerative changes of the spine. XR/XR chest 1V IMPRESSION: Satisfactory position of endotracheal tube. Nasogastric tube projects over stomach, tip not seen. Stable enlargement of the cardiac silhouette. Stable atelectasis at the lung bases, left greater than right.
--- NOTE | ~2021-01-07 | CT_ITS ---
EXAMINATION: CT HEAD WITHOUT CONTRAST CLINICAL INFORMATION: Seizure. COMPARISON: CT brain 07/21/2020 TECHNIQUE: Contiguous axial imaging was performed from the skull base to vertex without intravenous administration of contrast. This CT examination was performed using dose optimization techniques as appropriate, variously including the following: *Automated exposure control *Adjustment of mA and/or kV according to patient size (this includes techniques or standardized protocols for targeted exams where dose is matched to indication/reason for exam; i.e. extremities or head) *Use of iterative reconstruction technique DLP: 1835 mGy-cm FINDINGS: There is no evidence of acute intracranial hemorrhage or territorial infarction. There is an old right frontal and right posterior parietal lobe infarction. This was visualized on the previous exam 07/21/2020. No abnormal mass effect or midline shift is seen. Maciel to white matter differentiation is well preserved. No extra-axial fluid collections are identified. The ventricles are normal in size. There is no abnormal attenuation within the brain parenchyma. The osseous structures and soft tissues are normal. The mastoid air cells and visualized portions of the paranasal sinuses are well aerated. CT/CT head/brain wo con IMPRESSION: Old right frontal and right posterior parietal lobe infarction. No acute infarct or bleed visualized.
--- NOTE | 2021-01-07 13:49 | ECG_ITS ---
Test Reason : seizure Blood Pressure : / mmHG Vent. Rate : 101 BPM Atrial Rate : 101 BPM P-R Int : 188 ms QRS Dur : 090 ms QT Int : 350 ms P-R-T Axes : 085 020 059 degrees QTc Int : 453 ms Sinus tachycardia Otherwise normal ECG When compared with ECG of 03-NOV-2020 10:13, T wave inversion no longer evident in Anterior leads Heart rate has increased Referred By: Francisco Esteves Electronically Signed By:FCO KAMARA MD
[2021-01-07] MEDS: LORazepam 2 MG/ML VIAL IM ×2 (13:50→14:00)
[2021-01-07] MEDS: LORazepam 2 MG/ML VIAL IVPUSH (13:59)
[2021-01-07 14:09] LABS: MANUAL DIFF FLAG NO
[2021-01-07 14:10] LABS: Glucose, Whole Blood 119 mg/dL (60-115)
[2021-01-07 14:12] LABS: Basophils Absolute Auto 0.1 X10*3/uL (0.0-0.2); Basophils Percent Auto 0.5 % (0-2); Eosinophils Absolute Auto 0.5 X10*3/uL (0.0-0.4); Eosinophils Percent Auto 4.2 % (0-4); Hematocrit 35.8 % (37.0-47.0); Hemoglobin 9.9 g/dl (12.0-16.0); Imm Gran Abs Auto 0.03 X10*3/uL (0.00-0.03); Imm Gran Pct Auto 0.3 % (0.0-0.4); Lymphocytes Absolute Auto 2.8 X10*3/uL (1.2-4.9); Lymphocytes Percent Auto 24.2 % (20-40); Mean Corpuscular HGB Conc 27.7 g/dl (31.0-35.0); Mean Corpuscular Hemoglobin 22.3 pg (27.0-33.0); Mean Corpuscular Volume 80.8 fL (80.0-98.0); Mean Platelet Volume 8.2 fL (9.4-12.3); Monocytes Absolute Auto 1.1 X10*3/uL (0.1-1.2); Monocytes Percent Auto 9.4 % (2-11); Neutrophils Percent Auto 61.4 % (45-73); Platelet Count 403 X10*3/uL (160-400); Red Blood Count 4.43 X10*6/uL (4.20-5.50); Red Cell Distribution Width 16.8 % (11.0-16.0); White Blood Count 11.4 X10*3/uL (4.8-10.8)
[2021-01-07] MEDS: Etomidate 20 MG/10 ML VIAL IVPUSH (14:13)
[2021-01-07] MEDS: propofoL 1,000 MG/100 ML VIAL 22.86 MG IVCONT (14:15)
[2021-01-07] MEDS: Midazolam HCl/PF 2 MG/2 ML VIAL IVPUSH (14:15)
[2021-01-07 14:16] LABS: INTERNATIONAL NORM RATIO 2.6 (0.9-1.1); Prothrombin Time 30.7 SEC (9.9-13.0)
[2021-01-07 14:18] LABS: Partial Thromboplastin Time 41.9 SEC (24.1-38.0)
[2021-01-07] MEDS: Rocuronium Bromide 50 MG/5 ML VIAL IVPUSH (14:20)
[2021-01-07 14:28] LABS: Alanine Aminotransferase 14 U/L (0-31); Albumin Level 3.6 g/dL (3.5-5.0); Alkaline Phosphatase 94 U/L (39-117); Anion Gap 20 (12-20); Aspartate Amino Transferase 18 U/L (5-31); Bilirubin Direct < 0.2 mg/dL (0.0-0.5); Bilirubin Total 0.2 mg/dL (0.0-1.0); Blood Urea Nitrogen 12 mg/dL (9-16); Calcium 9.8 mg/dL (8.4-10.2); Carbon Dioxide 25 mmol/L (22-29); Chloride 95 mmol/L (96-108); Estimated Glomerular Filt Rate > 60; Glucose Random 143 mg/dL (60-115); Lipase 27 U/L (8-78); Potassium 4.6 mmol/L (3.3-5.1); Sodium 135 mmol/L (135-145); Total Protein 7.1 g/dL (6.5-8.0)
[2021-01-07 14:31] LABS: B Type Natriuretic Peptide 140 pg/mL (<100); Troponin-I High Sensitivity 6.3 ng/L (<3.5-17.0)
[2021-01-07 14:33] LABS: COVID-19 Test Negative (Negative)
[2021-01-07 15:24] LABS: Appearance Urine HAZY; Color Urine YELLOW; Glucose Urine UA NEG (NEG); Leukocyte Esterase Urine 1+ (NEG); Nitrite Urine NEG (NEG); PH 6.5 (5.0-8.0); Specific Gravity - Urine 1.025 (1.005-1.025); UACC Culture Trigger YES; Urine Blood TRACE (NEG); Urine Ketones NEG (NEG); Urine Protein 2+ MG/DL (NEG-TRACE)
[2021-01-07 15:29] LABS: Magnesium 2.1 mg/dL (1.6-2.6)
--- NOTE | 2021-01-07 15:30 | ED_ITS ---
HPI - Seizure General Chief Complaint: Seizure Stated Complaint: SEIZURE Time Seen by Provider: 01/07/21 13:49 Source: EMS and old records reviewed Mode of arrival: EMS Limitations: altered mental status History of Present Illness HPI Narrative: 65-year-old female brought in by ambulance from 's office for evaluation of left-sided twitching. Patient had an appointment with her primary doctor for routine visit found to have left-sided twitching with being unconscious, patient also found very hypertensive at the office, on arrival to the emergency department patient witnessed having left-sided twitching with regain of consciousness in between the left-sided seizure. Patient received multiple doses of Ativan with no success to stop the seizure. Patient was moved from bed 14 to bed for for intubation, aggressive sedation and muscle paralysis in order to stop the seizure and obtain radiographic study of the brain. Related Data Home Medications Medication Instructions Recorded Confirmed albuterol sulfate 90 mcg/actuation 2 puff INHALATION Q4-6H PRN 11/03/20 11/03/20 aerosol inhaler (ProAir HFA) ascorbic acid (vitamin C) 500 mg 250 mg PO DAILY 11/03/20 11/03/20 tablet (Vitamin C) melatonin 5 mg tablet 5 mg PO BEDTIME PRN 11/03/20 11/03/20 multivitamin 1 tab PO DAILY 11/03/20 11/03/20 acetaminophen 325 mg tablet 650 mg PO Q4H PRN 01/07/21 (Tylenol) Previous Rx's Medication Instructions Recorded furosemide 20 mg tablet (Lasix) 20 mg PO QAM #30 tab 11/07/20 warfarin 1 mg tablet 9 mg PO DAILY #0 tab 11/07/20 Allergies Allergy/AdvReac Type Severity Reaction Status Date / Time No Known Allergies Allergy Verified 01/07/21 13:17 Review of Systems Review of Systems: Yes Unobtainable due to mental status PMFSH Past Medical History Medical History Acute diastolic (congestive) heart failure COPD (chronic obstructive pulmonary disease) DVT of lower extremity (deep venous thrombosis) HTN (hypertension) Obesity Proteus (mirabilis) (morganii) as the cause of diseases classified elsewhere Thyroid nodule Type 2 diabetes mellitus with hyperglycemia Weakness Surgical History Retinal detachment of left eye due to tear of retina Family History Family History Mother CHF (congestive heart failure) Father Myocardial infarct Social History Social History Household Members: Other Housing: Halfway Do you presently have visiting nurse or other home services: Yes Patient Tobacco Use Status: Former Tobacco user Advance Directives: Yes Advance Directives Information Provided: No Advance Directives on File: No Advance Directives Date on File: 11/03/20 service: No Physical Exam Vital Signs: Vital Signs: Last Vital Signs Temp 99.1 F 01/07/21 15:23 Pulse 81 01/07/21 15:33 Resp 18 01/07/21 15:33 BP 170/81 H 01/07/21 15:33 Pulse Ox 99 01/07/21 15:33 Body Mass Index 46.5 Vital signs have been reviewed as appeared to be correct. Blood pressure elevated. Heart rate elevated, Respiration rate normal. Temperature normal. Oxygen saturation normal. Appearance: Obese, incoherent, frequent left-sided twitching, left visual gaze. Head: Normal external exam. Normocephalic. Atraumatic. No Nicholas signs noted. No raccoon eyes noted Eyes: PERRLA. EOMI. Conjunctiva and sclera normal. Eyelids normal. ENT: TM's Normal. Pharynx normal. Uvula midline. Moist mucous membranes. No trismus noted. No drooling noted. No muffled voice noted. Neck: Normal inspection. Neck supple. FROM. No adenopathy. Thyroid Normal. No meningeal signs. No neck mass noted. CVS: Normal heart rate and rhythm. Heart sound normal. No murmurs noted. Pulses normal throughout. Respiratory: No respiratory distress. Painless inspiration. Breath sounds normal. No wheezes/rales/rhonchi noted. Chest nontender. No accessory muscle usage noted or decreased air movement noted. Abdomen: Soft and nontender. Bowel sounds normal in all 4 quadrants. No distention noted. No organomegaly noted. No visible injury noted. Back: No CVA tenderness. Full range of motion noted. Skin: Skin warm and dry. Normal skin color. Normal skin turgor. No rashes /lesions/lacerations noted. Extremities: No lower extremity edema. Extremities exhibit normal range of motion. Extremities nontender. Neuro: Unresponsive, constant left-sided seizure. Course Course Course Narrative: Assessment and plan. 65-year-old female history of morbid obesity, history of COPD, CVA with left hemiparesis, borderline diabetes, DVT on Coumadin. Patient brought to the [facility] department for evaluation left-sided seizure that did not respond to multiple doses of Ativan injection, patient needed emergent intubation in order to further evaluate the patient by radiographic studies. Patient had successful intubation with high-dose sedation by propofol and rocuronium for muscular paralysis. Reevaluation(s) Reevaluation #1: Patient was moved to that for for intubation, patient had successful intubation, sedated with propofol paralyzed with rocuronium, with improvement of the twitching/seizure activity of the left side, CT head was obtained without acute finding. Time: 14:00 Reevaluation #2: Case discussed with Dr. Benitez from Neurology, start the patient on Dilantin, continue sedation, and admit to ICU. Case also discussed with Dr. Calero who accepted the patient to ICU. UTI meet 2 criteria for SIRS (tachycardia, tachypnea) start the patient on ceftriaxone. And will check culture and lactic acid. Will give 1 L of fluids. Time: 15:46 Reevaluation #3: I spoke over the phone with the son Romel Davis also healthcare proxy who confirmed the patient never had a history of seizure. Family was updated with the patient condition. Time: 15:47 MDM - Seizure Lab Data Attestation: I reviewed the patient's lab results. Result diagrams: 01/07/21 14:01 01/07/21 14:01 Labs: Lab Results 01/07/21 01/07/21 01/07/21 Range/Units 13:53 14:01 14:01 WBC 11.4 H (4.8-10.8) X10*3/uL RBC 4.43 (4.20-5.50) X10*6/uL Hgb 9.9 L (12.0-16.0) g/dl Hct 35.8 L (37.0-47.0) % MCV 80.8 (80.0-98.0) fL MCH 22.3 L (27.0-33.0) pg MCHC 27.7 L (31.0-35.0) g/dl RDW 16.8 H (11.0-16.0) % Plt Count 403 H (160-400) X10*3/uL MPV 8.2 L (9.4-12.3) fL Immature Gran % (Auto) 0.3 (0.0-0.4) % Neut % (Auto) 61.4 (45-73) % Lymph % (Auto) 24.2 (20-40) % [place] % (Auto) 9.4 (2-11) % Eos % (Auto) 4.2 H (0-4) % Baso % (Auto) 0.5 (0-2) % Lymph # (Auto) 2.8 (1.2-4.9) X10*3/uL [place] # (Auto) 1.1 (0.1-1.2) X10*3/uL Eos # (Auto) 0.5 H (0.0-0.4) X10*3/uL Baso # (Auto) 0.1 (0.0-0.2) X10*3/uL Abs Immat Gran (auto) 0.03 (0.00-0.03) X10*3/uL Absolute Neuts (auto) 7.0 (2.0-8.3) x10*3/uL Absolute Nucleated RBC 0.000 (0.0-0.012) X10*3/uL Nucleated RBC % (auto) 0.0 (0.0-0.2) /100WBC PT (9.9-13.0) SEC INR (0.9-1.1) APTT (24.1-38.0) SEC Sodium 135 (135-145) mmol/L Potassium 4.6 D (3.3-5.1) mmol/L Chloride 95 L (96-108) mmol/L Carbon Dioxide 25 (22-29) mmol/L Anion Gap 20 (12-20) BUN 12 (9-16) mg/dL Creatinine 0.78 (0.5-1.4) mg/dL Estim Creat Clear Calc TNP Estimated GFR > 60 POC Glucose 119 H (60-115) mg/dL Random Glucose 143 H (60-115) mg/dL Calcium 9.8 D (8.4-10.2) mg/dL Phosphorus 4.0 (2.7-4.5) mg/dL Magnesium 2.1 (1.6-2.6) mg/dL Total Bilirubin 0.2 (0.0-1.0) mg/dL Direct Bilirubin < 0.2 (0.0-0.5) mg/dL AST 18 (5-31) U/L ALT 14 (0-31) U/L Alkaline Phosphatase 94 (39-117) U/L Troponin I High Sens (<3.5-17.0) ng/L B-Natriuretic Peptide (<100) pg/mL Total Protein 7.1 (6.5-8.0) g/dL Albumin 3.6 (3.5-5.0) g/dL Lipase 27 (8-78) U/L Urine Color Urine Appearance Urine pH (5.0-8.0) Ur Specific [place] (1.005-1.025) Urine Protein (NEG-TRACE) MG/DL Urine Glucose (UA) (NEG) MG/DL Urine Ketones (NEG) MG/DL Urine Blood (NEG) Urine Nitrite (NEG) Ur Leukocyte Esterase (NEG) Urine RBC (0) /HPF Urine WBC (0-4) /HPF Ur Squamous Epith Cells /LPF Amorphous Sediment /LPF Urine Bacteria /LPF Hyaline Casts /LPF Urine Mucus /LPF COVID-19 (EVELINA) (Negative) COVID-19 Clin Com 01/07/21 01/07/21 01/07/21 Range/Units 14:01 14:04 14:04 WBC (4.8-10.8) X10*3/uL RBC (4.20-5.50) X10*6/uL Hgb (12.0-16.0) g/dl Hct (37.0-47.0) % MCV (80.0-98.0) fL MCH (27.0-33.0) pg MCHC (31.0-35.0) g/dl RDW (11.0-16.0) % Plt Count (160-400) X10*3/uL MPV (9.4-12.3) fL Immature Gran % (Auto) (0.0-0.4) % Neut % (Auto) (45-73) % Lymph % (Auto) (20-40) % [place] % (Auto) (2-11) % Eos % (Auto) (0-4) % Baso % (Auto) (0-2) % Lymph # (Auto) (1.2-4.9) X10*3/uL [place] # (Auto) (0.1-1.2) X10*3/uL Eos # (Auto) (0.0-0.4) X10*3/uL Baso # (Auto) (0.0-0.2) X10*3/uL Abs Immat Gran (auto) (0.00-0.03) X10*3/uL Absolute Neuts (auto) (2.0-8.3) x10*3/uL Absolute Nucleated RBC (0.0-0.012) X10*3/uL Nucleated RBC % (auto) (0.0-0.2) /100WBC PT 30.7 H (9.9-13.0) SEC INR 2.6 H (0.9-1.1) APTT 41.9 H (24.1-38.0) SEC Sodium (135-145) mmol/L Potassium (3.3-5.1) mmol/L Chloride (96-108) mmol/L Carbon Dioxide (22-29) mmol/L Anion Gap (12-20) BUN (9-16) mg/dL Creatinine (0.5-1.4) mg/dL Estim Creat Clear Calc Estimated GFR POC Glucose (60-115) mg/dL Random Glucose (60-115) mg/dL Calcium (8.4-10.2) mg/dL Phosphorus (2.7-4.5) mg/dL Magnesium (1.6-2.6) mg/dL Total Bilirubin (0.0-1.0) mg/dL Direct Bilirubin (0.0-0.5) mg/dL AST (5-31) U/L ALT (0-31) U/L Alkaline Phosphatase (39-117) U/L Troponin I High Sens 6.3 D (<3.5-17.0) ng/L B-Natriuretic Peptide 140 H (<100) pg/mL Total Protein (6.5-8.0) g/dL Albumin (3.5-5.0) g/dL Lipase (8-78) U/L Urine Color Urine Appearance Urine pH (5.0-8.0) Ur Specific [place] (1.005-1.025) Urine Protein (NEG-TRACE) MG/DL Urine Glucose (UA) (NEG) MG/DL Urine Ketones (NEG) MG/DL Urine Blood (NEG) Urine Nitrite (NEG) Ur Leukocyte Esterase (NEG) Urine RBC (0) /HPF Urine WBC (0-4) /HPF Ur Squamous Epith Cells /LPF Amorphous Sediment /LPF Urine Bacteria /LPF Hyaline Casts /LPF Urine Mucus /LPF COVID-19 (EVELINA) Negative (Negative) COVID-19 Clin Com See Note 01/07/21 Range/Units 15:13 WBC (4.8-10.8) X10*3/uL RBC (4.20-5.50) X10*6/uL Hgb (12.0-16.0) g/dl Hct (37.0-47.0) % MCV (80.0-98.0) fL MCH (27.0-33.0) pg MCHC (31.0-35.0) g/dl RDW (11.0-16.0) % Plt Count (160-400) X10*3/uL MPV (9.4-12.3) fL Immature Gran % (Auto) (0.0-0.4) % Neut % (Auto) (45-73) % Lymph % (Auto) (20-40) % [place] % (Auto) (2-11) % Eos % (Auto) (0-4) % Baso % (Auto) (0-2) % Lymph # (Auto) (1.2-4.9) X10*3/uL [place] # (Auto) (0.1-1.2) X10*3/uL Eos # (Auto) (0.0-0.4) X10*3/uL Baso # (Auto) (0.0-0.2) X10*3/uL Abs Immat Gran (auto) (0.00-0.03) X10*3/uL Absolute Neuts (auto) (2.0-8.3) x10*3/uL Absolute Nucleated RBC (0.0-0.012) X10*3/uL Nucleated RBC % (auto) (0.0-0.2) /100WBC PT (9.9-13.0) SEC INR (0.9-1.1) APTT (24.1-38.0) SEC Sodium (135-145) mmol/L Potassium (3.3-5.1) mmol/L Chloride (96-108) mmol/L Carbon Dioxide (22-29) mmol/L Anion Gap (12-20) BUN (9-16) mg/dL Creatinine (0.5-1.4) mg/dL Estim Creat Clear Calc Estimated GFR POC Glucose (60-115) mg/dL Random Glucose (60-115) mg/dL Calcium (8.4-10.2) mg/dL Phosphorus (2.7-4.5) mg/dL Magnesium (1.6-2.6) mg/dL Total Bilirubin (0.0-1.0) mg/dL Direct Bilirubin (0.0-0.5) mg/dL AST (5-31) U/L ALT (0-31) U/L Alkaline Phosphatase (39-117) U/L Troponin I High Sens (<3.5-17.0) ng/L B-Natriuretic Peptide (<100) pg/mL Total Protein (6.5-8.0) g/dL Albumin (3.5-5.0) g/dL Lipase (8-78) U/L Urine Color YELLOW Urine Appearance HAZY Urine pH 6.5 (5.0-8.0) Ur Specific [place] 1.025 (1.005-1.025) Urine Protein 2+ H (NEG-TRACE) MG/DL Urine Glucose (UA) NEG (NEG) MG/DL Urine Ketones NEG (NEG) MG/DL Urine Blood TRACE (NEG) Urine Nitrite NEG (NEG) Ur Leukocyte Esterase 1+ H (NEG) Urine RBC 1-4 (0) /HPF Urine WBC 15-29 H (0-4) /HPF Ur Squamous Epith Cells 2+ /LPF Amorphous Sediment TRACE /LPF Urine Bacteria 2+ /LPF Hyaline Casts 0-2 /LPF Urine Mucus 2+ /LPF COVID-19 (EVELINA) (Negative) COVID-19 Clin Com Imaging Data Chest x-ray: Radiologist's impression: Satisfactory position of endotracheal tube. Nasogastric tube projects over stomach, tip not seen. Stable enlargement of the cardiac silhouette. Stable atelectasis at the lung bases, left greater than right. ? CT scan - head: Radiologist's impression: Old right frontal and right posterior parietal lobe infarction. No acute infarct or bleed visualized. Procedures Intubation Time out performed: Yes sedative: Etomidate Mg Given: 20 Laryngoscope: fiber optic video scope ET Tube Size: 7.5 ET Tube Uncuffed: No Tube Secured Depth (cm): 22 Tube Secured Location: lips Tube Placement Confirmation: visualized tube passing through cords, equal breath sounds bilaterally, no breath sounds over epigastrium and confirmation by capnometry Patient Tolerated Procedure: well Intubation Complications: none Critical Care Time Critical Care Time Critical Care Time: Yes Total Critical Care Time: 60 Attestation: I spent 60 minutes providing critical care service to the patient, this including time spent at the bedside to evaluate the patient, reassess the patient, monitoring vital signs, review labs, and radiographic studies, counseling the patient/family, discussing the case with consultants, disposition the patient. Discharge Plan Discharge Clinical Impression: Status epilepticus, Acute UTI Patient Disposition: Admitted As Inpatient
[2021-01-07 15:36] LABS: Amorphous Sediment Urine TRACE /LPF; Hyaline Casts Urine 0-2 /LPF; Mucus Urine 2+ /LPF; Squamous Epithelial Cell Urine 2+ /LPF
[2021-01-07 15:37] LABS: Bacteria Urine 2+ /LPF
--- NOTE | 2021-01-07 15:40 | PC.NURSE ---
ET tube advanced by RT.
[2021-01-07] MEDS: 0.9 % Sodium Chloride 1,000 ML 999 ML IVCONT (16:13)
[2021-01-07] MEDS: cefTRIAXone sodium 1 GM in 0.9 % Sodium Chloride 50 ML IV (16:30)
--- NOTE | 2021-01-07 16:31 | PC.NURSE ---
speech correction assistant down to assess patient. per dr mckenzie, hold on drawling lactic and blood cultures, lactic will be high due to seizures, does not feel culutes are needed. patient has not had fever. ok to give antibiotics for UTI, antibiotics hanging. plan is to turn off propofol and see if patient wakes up appropriately and possible extubation. sedation off at this time,
--- NOTE | 2021-01-07 16:42 | PHA.MEDREC ---
Pharmacy Consult ? Medication Reconciliation Pharmacy has completed the medication reconciliation. Spoke to son. Had all patients meds on hand. Said she recently starting the ability and stopped another medication recently but doesn't know what medication it was.
[2021-01-07 17:59] LABS: Amphetamine Screen Urine Not Detected (Not Detect); Barbiturates, Urine Not Detected (Not Detect); Benzodiazepines Screen Urine POSITIVE (Not Detect); Cannabinoid Screen Urine Not Detected (Not Detect); Cocaine Screen Urine Not Detected (Not Detect); Fentanyl, urine Not Detected (Not Detect); Opiate Screen Urine Not Detected (Not Detect); Phencyclidine Screen Urine Not Detected (Not Detect)
--- NOTE | 2021-01-07 18:08 | P.HPCC_ITS ---
History of Present Illness Date of Service: 01/07/21 Attending physician on admission: Andie Calero Chief Complaint: Status epilepticus 65-year-old morbidly obese type 2 diabetic female with history of deep vein thrombosis previous extensive right middle cerebral artery territory CVA with residual left hemiparesis presented with focal than generalized seizures in status epilepticus involving the left side of her body 1st before generalize Ng consistent with the previous area of infarct and despite being on Coumadin no evidence of hemorrhage she the briefly responded to extensive doses of IV Ativan to a total of 6 mg and then when she broke through again she was paralyzed sedat ed intubated and then loaded with 1.5 g of IV Dilantin and at this point we stop the propofol and we are awaiting her awakening once the Ativan wears off if mental status is appropriate and she can protect airway with good cognitive function and we will extubate Review of Systems Review of Systems: Yes unobtainable due to endotracheal tube PMFSH Past Medical History Medical History (Updated 01/08/21 @ 09:08 by Andie Calero MD) Acute diastolic (congestive) heart failure Cerebrovascular accident (CVA) COPD (chronic obstructive pulmonary disease) DVT of lower extremity (deep venous thrombosis) HTN (hypertension) Obesity Obesity hypoventilation syndrome Proteus (mirabilis) (morganii) as the cause of diseases classified elsewhere Thyroid nodule Type 2 diabetes mellitus with hyperglycemia Weakness Family History Family History Mother CHF (congestive heart failure) Father Myocardial infarct Surgical History Surgical History Retinal detachment of left eye due to tear of retina Social History Social History Household Members: Family Housing: House Do you presently have visiting nurse or other home services: Yes Unable to assess alcohol history related to: Unable to respond Patient Tobacco Use Status: Former Tobacco user Use of substances other than those prescribed or required for medical reasons: Unable to respond Advance Directives: Yes Advance Directives Information Provided: No Advance Directives on File: No Advance Directives Date on File: 11/03/20 Recently lost weight without trying: Unsure Patient : No : No Poor oral hygiene: No service: No Meds Allergies Allergy/AdvReac Type Severity Reaction Status Date / Time No Known Allergies Allergy Verified 01/07/21 13:17 Active Medications: Current Medications Propofol (Diprivan) 1,000 mg in 100 mls @ 0 mls/hr IVCONT .Q0M ONEL; Protocol Last Titration: 01/07/21 16:30 Dose: 0 mcg/kg/min, 0 mls/hr Documented by: Pharmacy Consult (Consult Rx Perform Med Rec) 1 each MISCELLANE ONCE PRN PRN Reason: Consult order Pharmacy Consult (Consult Rx Perform Med Rec) 1 each MISCELLANE ONCE PRN PRN Reason: Consult order Home Medications Medication Instructions Recorded Confirmed Last Taken Type albuterol sulfate 90 mcg/actuation 2 puff INHALATION Q4-6H PRN 11/03/20 01/07/21 Unknown History aerosol inhaler (ProAir HFA) melatonin 5 mg tablet 5 mg PO BEDTIME PRN 11/03/20 01/07/21 Unknown History aripiprazole 10 mg tablet (Abilify) 10 mg PO DAILY 01/07/21 01/07/21 Unknown History docusate sodium 100 mg capsule 100 mg PO DAILY 01/07/21 01/07/21 Unknown History (Colace) ondansetron HCl 4 mg tablet 4 mg PO DAILY PRN 01/07/21 01/07/21 Unknown History (Zofran) polyethylene glycol 3350 17 17 g PO DAILY 01/07/21 01/07/21 Unknown History gram/dose oral powder (Miralax) warfarin 2 mg tablet 2 mg PO DAILY 01/07/21 01/07/21 Unknown History Physical Exam Vital Signs: Vital Signs: Last Vital Signs Temp 99.7 F 01/07/21 17:40 Pulse 73 01/07/21 17:40 Resp 18 01/07/21 17:40 BP 157/66 H 01/07/21 17:40 Pulse Ox 97 01/07/21 17:40 Body Mass Index 46.5 Sedated and intubated but after I stopped propofol in response to pain she would grimace and spontaneously raise the right arm and leg but no spontaneous movement of the left side Bedside echo with preserved LV function Chest without adventitious sounds Abdomen soft with positive bowel sounds no organomegaly Skin intact with no acrocyanosis Results Labs CBC and Chem 7: 01/08/21 05:27 01/08/21 05:27 Labs: Laboratory Results - last 24 hr 01/07/21 01/07/21 01/07/21 13:53 14:01 14:01 MCV 80.8 MCH 22.3 L MCHC 27.7 L RDW 16.8 H Plt Count 403 H MPV 8.2 L Immature Gran % (Auto) 0.3 Neut % (Auto) 61.4 Lymph % (Auto) 24.2 [place] % (Auto) 9.4 Eos % (Auto) 4.2 H Baso % (Auto) 0.5 Lymph # (Auto) 2.8 [place] # (Auto) 1.1 Eos # (Auto) 0.5 H Baso # (Auto) 0.1 Abs Immat Gran (auto) 0.03 Absolute Neuts (auto) 7.0 Absolute Nucleated RBC 0.000 Nucleated RBC % (auto) 0.0 PT INR APTT Anion Gap 20 Estim Creat Clear Calc TNP Estimated GFR > 60 POC Glucose 119 H Random Glucose 143 H Calcium 9.8 D Phosphorus 4.0 Magnesium 2.1 Total Bilirubin 0.2 Direct Bilirubin < 0.2 AST 18 ALT 14 Alkaline Phosphatase 94 Troponin I High Sens B-Natriuretic Peptide Total Protein 7.1 Albumin 3.6 Lipase 27 Urine Color Urine Appearance Urine pH Ur Specific [place] Urine Protein Urine Glucose (UA) Urine Ketones Urine Blood Urine Nitrite Ur Leukocyte Esterase Urine RBC Urine WBC Ur Squamous Epith Cells Amorphous Sediment Urine Bacteria Hyaline Casts Urine Mucus Urine Opiates Screen Urine Fentanyl Screen Ur Barbiturates Screen Ur Phencyclidine Scrn Ur Amphetamines Screen U Benzodiazepines Scrn Urine Cocaine Screen U Marijuana (THC) Screen COVID-19 (EVELINA) COVID-19 Clin Com 01/07/21 01/07/21 01/07/21 14:01 14:04 14:04 MCV MCH MCHC RDW Plt Count MPV Immature Gran % (Auto) Neut % (Auto) Lymph % (Auto) [place] % (Auto) Eos % (Auto) Baso % (Auto) Lymph # (Auto) [place] # (Auto) Eos # (Auto) Baso # (Auto) Abs Immat Gran (auto) Absolute Neuts (auto) Absolute Nucleated RBC Nucleated RBC % (auto) PT 30.7 H INR 2.6 H APTT 41.9 H Anion Gap Estim Creat Clear Calc Estimated GFR POC Glucose Random Glucose Calcium Phosphorus Magnesium Total Bilirubin Direct Bilirubin AST ALT Alkaline Phosphatase Troponin I High Sens 6.3 D B-Natriuretic Peptide 140 H Total Protein Albumin Lipase Urine Color Urine Appearance Urine pH Ur Specific [place] Urine Protein Urine Glucose (UA) Urine Ketones Urine Blood Urine Nitrite Ur Leukocyte Esterase Urine RBC Urine WBC Ur Squamous Epith Cells Amorphous Sediment Urine Bacteria Hyaline Casts Urine Mucus Urine Opiates Screen Urine Fentanyl Screen Ur Barbiturates Screen Ur Phencyclidine Scrn Ur Amphetamines Screen U Benzodiazepines Scrn Urine Cocaine Screen U Marijuana (THC) Screen COVID-19 (EVELINA) Negative COVID-19 Clin Com See Note 01/07/21 01/07/21 15:13 15:13 MCV MCH MCHC RDW Plt Count MPV Immature Gran % (Auto) Neut % (Auto) Lymph % (Auto) [place] % (Auto) Eos % (Auto) Baso % (Auto) Lymph # (Auto) [place] # (Auto) Eos # (Auto) Baso # (Auto) Abs Immat Gran (auto) Absolute Neuts (auto) Absolute Nucleated RBC Nucleated RBC % (auto) PT INR APTT Anion Gap Estim Creat Clear Calc Estimated GFR POC Glucose Random Glucose Calcium Phosphorus Magnesium Total Bilirubin Direct Bilirubin AST ALT Alkaline Phosphatase Troponin I High Sens B-Natriuretic Peptide Total Protein Albumin Lipase Urine Color YELLOW Urine Appearance HAZY Urine pH 6.5 Ur Specific [place] 1.025 Urine Protein 2+ H Urine Glucose (UA) NEG Urine Ketones NEG Urine Blood TRACE Urine Nitrite NEG Ur Leukocyte Esterase 1+ H Urine RBC 1-4 Urine WBC 15-29 H Ur Squamous Epith Cells 2+ Amorphous Sediment TRACE Urine Bacteria 2+ Hyaline Casts 0-2 Urine Mucus 2+ Urine Opiates Screen Not Detected Urine Fentanyl Screen Not Detected Ur Barbiturates Screen Not Detected Ur Phencyclidine Scrn Not Detected Ur Amphetamines Screen Not Detected U Benzodiazepines Scrn POSITIVE H Urine Cocaine Screen Not Detected U Marijuana (THC) Screen Not Detected COVID-19 (EVELINA) COVID-19 Clin Com Imaging Radiologist's Impressions: Impressions Head CT 01/07/21 14:54 IMPRESSION: Old right frontal and right posterior parietal lobe infarction. No acute infarct or bleed visualized. Chest X-Ray 01/07/21 15:26 IMPRESSION: Satisfactory position of endotracheal tube. Nasogastric tube projects over stomach, tip not seen. Stable enlargement of the cardiac silhouette. Stable atelectasis at the lung bases, left greater than right. Assessment and Plan (1) Status epilepticus: Status: Acute (2) Acute UTI: Status: Acute (3) Obesity: Status: Acute (4) Hypothyroid: Status: Acute (5) HTN (hypertension): Status: Acute (6) Type 2 diabetes mellitus with hyperglycemia: Status: Acute (7) Left hemiparesis: Status: Acute (8) Obesity hypoventilation syndrome: Status: Acute Will bring her to the ICU to await her awakening from the 6 mg of IV Ativan that she had received and once we assess cognitive function if that appears adequate we will extubate and then start her on maintenance dose of Dilantin and she be transferable to the floor
--- NOTE | 2021-01-07 20:07 | PC.NURSE ---
Report called to ENGINE EMISSION TECHNICIAN. Pt transported to unit via this RN and RT Mayo, attached to portable monitor. Delivered in stable condition w/ all belongings.
--- NOTE | 2021-01-07 20:38 | PC.NURSE ---
Propofol gtt stopped 1630 per day shift, no additional propofol adminsitered. Remainder of medication wasted by this RN and witnessed by primer charger Karina
[2021-01-07 21:00] LABS: Glucose, Whole Blood 116 mg/dL (60-115)
--- NOTE | 2021-01-07 21:12 | PC.NURSE ---
Pt admitted to ICU at approx 2014. Remains off sedation, pt responds to noxious stimuli, does not open eyes or follow commands at this time. NSR on tele, HR 70s. ETT #7.5, 25 cm at lip. Vent settings currently AC 18/420/5/40%, SpO2 > 92%. OGT clamped. RLE venous stasis ulcer, dressing changed. +2 generalized edema. Coccyx red but blanchable. Restraints in place for safety. Plan to extubate when pt appropriate.
[2021-01-08] VITALS (21 sets, daily range): BP systolic 126–162; BP diastolic 38–76; PULSE 71–102; RESP 14–35; TEMP 30.8–37.9; O2SAT 15–99; BMI 46.1
[2021-01-08 05:37] LABS: VBG Base Excess 10.9 mmol/L; VBG HCO3 36 mmol/L (22-26); VBG pCO2 49 mmHg; VBG pH 7.46 (7.32-7.43); VBG pO2 78 mmHg
[2021-01-08 05:38] LABS: Venous Blood Gas Refer to POC result
--- NOTE | 2021-01-08 05:51 | PC.NURSE ---
approximately 0445 patient reposition started to wake up more and was having high peak pressures, coughing and gagging on tube. This RN suctioned patient inline and orally with minimal secretions. Patient able to follow commands but attempting to pull at tube. PA and respiratory at bedside, patient put on pressure support and tolerating well O2 maintaining but patient still attempting top pull out tube. Decision was made to extubate patient. Patient agreed. Patient tolerating well 98 on 6L Nasal Cannula respiratory decreased to trend down and sats started to drop down to low 80's. Patient place on venti mask at 55% and maintaining o2 sats at 98%. Patient is A&OX3 but vague to situation and requesting to leave/asking for drinks. Patients mouth swabbed and reports feeling ok when asked. vitals are stable, urine output between 50-75ml/hour. Will continue to monitor patient status.
[2021-01-08 05:55] LABS: MANUAL DIFF FLAG NO
[2021-01-08 06:09] LABS: Basophils Percent Auto 0.4 % (0-2); Eosinophils Absolute Auto 0.2 X10*3/uL (0.0-0.4); Eosinophils Percent Auto 1.9 % (0-4); Hematocrit 32.1 % (37.0-47.0); Imm Gran Abs Auto 0.04 X10*3/uL (0.00-0.03); Imm Gran Pct Auto 0.4 % (0.0-0.4); Lymphocytes Absolute Auto 1.7 X10*3/uL (1.2-4.9); Lymphocytes Percent Auto 17.3 % (20-40); Mean Corpuscular Hemoglobin 22.3 pg (27.0-33.0); Mean Corpuscular Volume 79.7 fL (80.0-98.0); Mean Platelet Volume 8.8 fL (9.4-12.3); Monocytes Absolute Auto 1.1 X10*3/uL (0.1-1.2); Monocytes Percent Auto 11.5 % (2-11); Neutrophils Absolute Auto 6.6 x10*3/uL (2.0-8.3); Neutrophils Percent Auto 68.5 % (45-73); Platelet Count 338 X10*3/uL (160-400); Red Blood Count 4.03 X10*6/uL (4.20-5.50); Red Cell Distribution Width 16.7 % (11.0-16.0); White Blood Count 9.6 X10*3/uL (4.8-10.8)
[2021-01-08] MEDS: Pantoprazole Sodium 40 MG/10 ML VIAL IVPUSH (06:15)
[2021-01-08 06:23] LABS: INTERNATIONAL NORM RATIO 3.1 (0.9-1.1); Prothrombin Time 36.7 SEC (9.9-13.0)
[2021-01-08 06:26] LABS: Partial Thromboplastin Time 44.7 SEC (24.1-38.0)
[2021-01-08 06:37] LABS: Anion Gap 13 (12-20); Blood Urea Nitrogen 11 mg/dL (9-16); Calcium 8.8 mg/dL (8.4-10.2); Carbon Dioxide 30 mmol/L (22-29); Chloride 99 mmol/L (96-108); Creatinine Clr Calc Pharmacy 107.6; Estimated Glomerular Filt Rate > 60; Glucose Random 109 mg/dL (60-115); Phosphorus 3.3 mg/dL (2.7-4.5); Potassium 3.9 mmol/L (3.3-5.1); Sodium 138 mmol/L (135-145)
[2021-01-08 07:19] LABS: Glucose, Whole Blood 90 mg/dL (60-115)
[2021-01-08] MEDS: Phenytoin Sodium 100 MG/2 ML VIAL IVPUSH ×3 (08:23→21:13)
--- NOTE | 2021-01-08 09:09 | P.PNCC_ITS ---
Subjective Subjective Date of Service: 01/08/21 Interval History: 65-year-old morbidly obese type 2 diabetic status post right middle cerebral artery territory CVA of rather large extent on Coumadin anticoagulation because of a history of deep vein thrombosis and known to have obesity hypoventilation as well as probable obstructive sleep apnea who lost consciousness with witnessed seizure which was initially focal involving the left hemiparetic side of her body and then became generalized and prolonged so clinically by definition in status epilepticus initially responded briefly to IV Ativan broke back through again and seemingly intractable she was sedated and paralyzed and placed on ventilator and we brought to the ICU and after the loading dose of IV Dilantin we were awaiting to rule reassess her cognitive function off all sedation in the hopes of just simply extubating her and which took place in the mental health specialist hours this morning and since that time she has been comfortably well all lab work is good has a low-grade temperature but there is evidence of a urinary tract infection for which he is now on ceftriaxone and we have her on a maintenance dose of Dilantin and we restored as of this evening her Coumadin and right now simply on a nasal cannula Critical Care Time (minutes): 35 Physical Exam Vital Signs: Vital Signs: Last Vital Signs Temp 99.7 F 01/08/21 08:00 Pulse 86 01/08/21 08:00 Resp 31 H 01/08/21 08:00 BP 126/47 L 01/08/21 08:00 Pulse Ox 15 L 01/08/21 07:00 Body Mass Index 46.1 She is awake with left hemiparesis and good cognitive function Cardiac exam without murmur or gallop chest is clear bilaterally Abdomen soft and benign Skin is intact Objective Data Labs CBC & Chem 7: 01/08/21 05:27 01/08/21 05:27 Labs: Laboratory Results - last 24 hr 01/07/21 01/07/21 01/07/21 13:53 14:01 14:01 WBC 11.4 H RBC 4.43 Hgb 9.9 L Hct 35.8 L MCV 80.8 MCH 22.3 L MCHC 27.7 L RDW 16.8 H Plt Count 403 H MPV 8.2 L Immature Gran % (Auto) 0.3 Neut % (Auto) 61.4 Lymph % (Auto) 24.2 [place] % (Auto) 9.4 Eos % (Auto) 4.2 H Baso % (Auto) 0.5 Lymph # (Auto) 2.8 [place] # (Auto) 1.1 Eos # (Auto) 0.5 H Baso # (Auto) 0.1 Abs Immat Gran (auto) 0.03 Absolute Neuts (auto) 7.0 Absolute Nucleated RBC 0.000 Nucleated RBC % (auto) 0.0 PT INR APTT VBG pH VBG pCO2 VBG pO2 VBG HCO3 VBG O2 Saturation VBG Base Excess Sodium 135 Potassium 4.6 D Chloride 95 L Carbon Dioxide 25 Anion Gap 20 BUN 12 Creatinine 0.78 Estim Creat Clear Calc TNP Estimated GFR > 60 POC Glucose 119 H Random Glucose 143 H Calcium 9.8 D Phosphorus 4.0 Magnesium 2.1 Total Bilirubin 0.2 Direct Bilirubin < 0.2 AST 18 ALT 14 Alkaline Phosphatase 94 Troponin I High Sens B-Natriuretic Peptide Total Protein 7.1 Albumin 3.6 Lipase 27 Urine Color Urine Appearance Urine pH Ur Specific [place] Urine Protein Urine Glucose (UA) Urine Ketones Urine Blood Urine Nitrite Ur Leukocyte Esterase Urine RBC Urine WBC Ur Squamous Epith Cells Amorphous Sediment Urine Bacteria Hyaline Casts Urine Mucus Urine Opiates Screen Urine Fentanyl Screen Ur Barbiturates Screen Ur Phencyclidine Scrn Ur Amphetamines Screen U Benzodiazepines Scrn Urine Cocaine Screen U Marijuana (THC) Screen COVID-19 (EVELINA) COVID-19 Clin Com 01/07/21 01/07/21 01/07/21 14:01 14:04 14:04 WBC RBC Hgb Hct MCV MCH MCHC RDW Plt Count MPV Immature Gran % (Auto) Neut % (Auto) Lymph % (Auto) [place] % (Auto) Eos % (Auto) Baso % (Auto) Lymph # (Auto) [place] # (Auto) Eos # (Auto) Baso # (Auto) Abs Immat Gran (auto) Absolute Neuts (auto) Absolute Nucleated RBC Nucleated RBC % (auto) PT 30.7 H INR 2.6 H APTT 41.9 H VBG pH VBG pCO2 VBG pO2 VBG HCO3 VBG O2 Saturation VBG Base Excess Sodium Potassium Chloride Carbon Dioxide Anion Gap BUN Creatinine Estim Creat Clear Calc Estimated GFR POC Glucose Random Glucose Calcium Phosphorus Magnesium Total Bilirubin Direct Bilirubin AST ALT Alkaline Phosphatase Troponin I High Sens 6.3 D B-Natriuretic Peptide 140 H Total Protein Albumin Lipase Urine Color Urine Appearance Urine pH Ur Specific [place] Urine Protein Urine Glucose (UA) Urine Ketones Urine Blood Urine Nitrite Ur Leukocyte Esterase Urine RBC Urine WBC Ur Squamous Epith Cells Amorphous Sediment Urine Bacteria Hyaline Casts Urine Mucus Urine Opiates Screen Urine Fentanyl Screen Ur Barbiturates Screen Ur Phencyclidine Scrn Ur Amphetamines Screen U Benzodiazepines Scrn Urine Cocaine Screen U Marijuana (THC) Screen COVID-19 (EVELINA) Negative COVID-19 Clin Com See Note 01/07/21 01/07/21 01/07/21 15:13 15:13 20:56 WBC RBC Hgb Hct MCV MCH MCHC RDW Plt Count MPV Immature Gran % (Auto) Neut % (Auto) Lymph % (Auto) [place] % (Auto) Eos % (Auto) Baso % (Auto) Lymph # (Auto) [place] # (Auto) Eos # (Auto) Baso # (Auto) Abs Immat Gran (auto) Absolute Neuts (auto) Absolute Nucleated RBC Nucleated RBC % (auto) PT INR APTT VBG pH VBG pCO2 VBG pO2 VBG HCO3 VBG O2 Saturation VBG Base Excess Sodium Potassium Chloride Carbon Dioxide Anion Gap BUN Creatinine Estim Creat Clear Calc Estimated GFR POC Glucose 116 H Random Glucose Calcium Phosphorus Magnesium Total Bilirubin Direct Bilirubin AST ALT Alkaline Phosphatase Troponin I High Sens B-Natriuretic Peptide Total Protein Albumin Lipase Urine Color YELLOW Urine Appearance HAZY Urine pH 6.5 Ur Specific [place] 1.025 Urine Protein 2+ H Urine Glucose (UA) NEG Urine Ketones NEG Urine Blood TRACE Urine Nitrite NEG Ur Leukocyte Esterase 1+ H Urine RBC 1-4 Urine WBC 15-29 H Ur Squamous Epith Cells 2+ Amorphous Sediment TRACE Urine Bacteria 2+ Hyaline Casts 0-2 Urine Mucus 2+ Urine Opiates Screen Not Detected Urine Fentanyl Screen Not Detected Ur Barbiturates Screen Not Detected Ur Phencyclidine Scrn Not Detected Ur Amphetamines Screen Not Detected U Benzodiazepines Scrn POSITIVE H Urine Cocaine Screen Not Detected U Marijuana (THC) Screen Not Detected COVID-19 (EVELINA) COVID-19 Clin Com 01/08/21 01/08/21 01/08/21 05:27 05:27 05:27 WBC 9.6 RBC 4.03 L Hgb 9.0 L Hct 32.1 L MCV 79.7 L MCH 22.3 L MCHC 28.0 L RDW 16.7 H Plt Count 338 MPV 8.8 L Immature Gran % (Auto) 0.4 Neut % (Auto) 68.5 Lymph % (Auto) 17.3 L [place] % (Auto) 11.5 H Eos % (Auto) 1.9 Baso % (Auto) 0.4 Lymph # (Auto) 1.7 [place] # (Auto) 1.1 Eos # (Auto) 0.2 Baso # (Auto) 0.0 Abs Immat Gran (auto) 0.04 H Absolute Neuts (auto) 6.6 Absolute Nucleated RBC 0.000 Nucleated RBC % (auto) 0.0 PT 36.7 H INR 3.1 H APTT 44.7 H VBG pH VBG pCO2 VBG pO2 VBG HCO3 VBG O2 Saturation VBG Base Excess Sodium 138 Potassium 3.9 Chloride 99 Carbon Dioxide 30 H Anion Gap 13 BUN 11 Creatinine 0.69 Estim Creat Clear Calc 107.6 Estimated GFR > 60 POC Glucose Random Glucose 109 Calcium 8.8 D Phosphorus 3.3 Magnesium 2.0 Total Bilirubin Direct Bilirubin AST ALT Alkaline Phosphatase Troponin I High Sens B-Natriuretic Peptide Total Protein Albumin Lipase Urine Color Urine Appearance Urine pH Ur Specific [place] Urine Protein Urine Glucose (UA) Urine Ketones Urine Blood Urine Nitrite Ur Leukocyte Esterase Urine RBC Urine WBC Ur Squamous Epith Cells Amorphous Sediment Urine Bacteria Hyaline Casts Urine Mucus Urine Opiates Screen Urine Fentanyl Screen Ur Barbiturates Screen Ur Phencyclidine Scrn Ur Amphetamines Screen U Benzodiazepines Scrn Urine Cocaine Screen U Marijuana (THC) Screen COVID-19 (EVELINA) COVID-19 Clin Com 01/08/21 01/08/21 05:29 07:09 WBC RBC Hgb Hct MCV MCH MCHC RDW Plt Count MPV Immature Gran % (Auto) Neut % (Auto) Lymph % (Auto) [place] % (Auto) Eos % (Auto) Baso % (Auto) Lymph # (Auto) [place] # (Auto) Eos # (Auto) Baso # (Auto) Abs Immat Gran (auto) Absolute Neuts (auto) Absolute Nucleated RBC Nucleated RBC % (auto) PT INR APTT VBG pH 7.46 H VBG pCO2 49 VBG pO2 78 VBG HCO3 36 H VBG O2 Saturation 96.0 VBG Base Excess 10.9 Sodium Potassium Chloride Carbon Dioxide Anion Gap BUN Creatinine Estim Creat Clear Calc Estimated GFR POC Glucose 90 Random Glucose Calcium Phosphorus Magnesium Total Bilirubin Direct Bilirubin AST ALT Alkaline Phosphatase Troponin I High Sens B-Natriuretic Peptide Total Protein Albumin Lipase Urine Color Urine Appearance Urine pH Ur Specific [place] Urine Protein Urine Glucose (UA) Urine Ketones Urine Blood Urine Nitrite Ur Leukocyte Esterase Urine RBC Urine WBC Ur Squamous Epith Cells Amorphous Sediment Urine Bacteria Hyaline Casts Urine Mucus Urine Opiates Screen Urine Fentanyl Screen Ur Barbiturates Screen Ur Phencyclidine Scrn Ur Amphetamines Screen U Benzodiazepines Scrn Urine Cocaine Screen U Marijuana (THC) Screen COVID-19 (EVELINA) COVID-19 Clin Com Progress Note: A&P Assessment and plan (1) Obesity hypoventilation syndrome: Status: Acute (2) Status epilepticus: Status: Acute (3) Acute UTI: Status: Acute (4) Obesity: Status: Acute (5) Hypothyroid: Status: Acute (6) HTN (hypertension): Status: Acute (7) Type 2 diabetes mellitus with hyperglycemia: Status: Acute (8) Left hemiparesis: Status: Acute Assessment and Plan: Plan is to keep her on ceftriaxone for the UTI and Dilantin for seizure prophylaxis restored use of warfarin and small additional observation. To be sure seizure activity is arrested on the Dilantin but no apparent new central issue certainly no hemorrhagic complication related to the Coumadin Quality Stroke Does the patient have a stroke diagnosis?: No VTE Prior VTE?: No VTE Risk Level:: Medical - moderate - high VTE Device Contraindication: N/A - Device Ordered VTE Drug Contraindication: N/A - Med Ordered
--- NOTE | 2021-01-08 10:51 | MHC.SL.SWA ---
Speech Pathologist Impression: Risk of Aspiration Risk of Aspiration Due to: Hx of Recent Extubation Reduced Cognition Dysphasia Diet Status: Upgrade to REGULAR solids and THIN liquids Liquid Consistency and Strategies for Safe Swallow: Liquid Intake Recommendation: Thin Liquid Intake Strategies: No Straws Solid Food Consistency: Dietary Recommendations: Regular Oral Medication Intake: Whole with Liquid Compensatory Strategies and Precautions to be Taken for Safe Swallow: Sitting Upright (90 deg) No Straw Small Bites and Sips Alternate Liquids/Solids Supervision While Eating and Drinking for Safe Swallow: Total Supervision (1:1) Foods to Avoid: dry, crunchy, sticky solids Swallowing Recommended Treatments: Compens. Strategy Educat. Recommendation for Speech: Inpatient Speech Therapy Comment: x1 follow-up Senior Technical Architect Clinican/Clinical Fellow: No Supervisory Statement: I have reviewed and agree with the student/clinical fellow's documentation: N/A Speech Language Pathologist: Irina Huitron M.A., CCC-WORKGROUP LEADER
[2021-01-08 11:18] LABS: Glucose, Whole Blood 105 mg/dL (60-115)
--- NOTE | 2021-01-08 14:19 | PC.NURSE ---
Skin assessment completed today. Patient has a venous stasis ulcer to right leg-EPC barrier cream applied to edges of wound and silver alginate applied to wound bed covered with non woven gauze and roll gauze. Patient also has stage 2 pressure injury to coccyx and stage 1 to right buttock- Triad applied to area and the coccyx covered with foam. Scattered bruising on arms. No other skin issues noted at this time.
--- NOTE | 2021-01-08 14:36 | P.CNNE_ITS ---
History of Present Illness Data of Consult Service Date: 01/08/21 Primary Care Provider: MD ALFRED Brady Reason for consult: Seizure disorder 65 years old woman who came to hospital with left-sided shaking and was treated for seizures with multiple doses of lorazepam in emergency room and then was intubated and transferred to ICU. Now she was extubated and was doing better. She said that she never had a seizure before. [facility] Past Medical History Medical History (Updated 01/08/21 @ 14:38 by Rick Romeo MD) Acute diastolic (congestive) heart failure Cerebrovascular accident (CVA) COPD (chronic obstructive pulmonary disease) DVT of lower extremity (deep venous thrombosis) HTN (hypertension) Obesity Obesity hypoventilation syndrome Proteus (mirabilis) (morganii) as the cause of diseases classified elsewhere Thyroid nodule Type 2 diabetes mellitus with hyperglycemia Weakness Family History Family History Mother CHF (congestive heart failure) Father Myocardial infarct Surgical History Surgical History Retinal detachment of left eye due to tear of retina Social History Social History Household Members: Family Housing: House Do you presently have visiting nurse or other home services: Yes Unable to assess alcohol history related to: Unable to respond Patient Tobacco Use Status: Former Tobacco user Use of substances other than those prescribed or required for medical reasons: Unable to respond Currently Displaying Signs/Symptoms of Drug Intoxication Withdrawal: No Advance Directives: Yes Advance Directives Information Provided: No Advance Directives on File: No Advance Directives Date on File: 11/03/20 Do you have thoughts of harming others: None Do you have a plan to hurt others: No Plan Recently lost weight without trying: Unsure Patient : No : No Poor oral hygiene: No service: No Meds Allergies Allergy/AdvReac Type Severity Reaction Status Date / Time No Known Allergies Allergy Verified 01/07/21 13:17 Active Medications: Current Medications Dextrose (Dextrose 50 % 25 Gm/50 Ml Vial) 25 gm IVPUSH Q15M PRN; Protocol PRN Reason: per Hypoglycemia Standing Ord. Glucose (Glucose Gel 15 Gm Gel..Gram.) 15 gm PO Q15M PRN; Protocol PRN Reason: per Hypoglycemia Standing Ord. Ceftriaxone Sodium 1 gm/ (Sodium Chloride) 50 mls @ 100 mls/hr IV Q24H [facility] Insulin Human Lispro (Insulin Lispro 100 Unit/Ml 3 Ml Vial) 0 unit SUBCUT QIDACHS [facility]; Protocol Stop: 01/08/21 18:15 Last Admin: 01/08/21 11:57 Dose: Not Given Documented by: Pantoprazole Sodium (Pantoprazole Sodium 40 Mg/10 Ml Vial) 40 mg IVPUSH DAILY@0630 [facility] Last Admin: 01/08/21 06:15 Dose: 40 mg Documented by: Pharmacy Consult (Consult Rx Perform Med Rec) 1 each MISCELLANE ONCE PRN PRN Reason: Consult order Pharmacy Consult (Consult Rx Perform Med Rec) 1 each MISCELLANE ONCE PRN PRN Reason: Consult order Phenytoin Sodium (Phenytoin Sodium 100 Mg/2 Ml Vial) 100 mg IVPUSH TID [facility] Last Admin: 01/08/21 08:23 Dose: 100 mg Documented by: Warfarin Sodium (Warfarin Sodium 2 Mg Tablet) 2 mg PO DAILY@1800 [facility] Home Medications Medication Instructions Recorded Confirmed Last Taken Type albuterol sulfate 90 mcg/actuation 2 puff INHALATION Q4-6H PRN 11/03/20 01/07/21 Unknown History aerosol inhaler (ProAir HFA) melatonin 5 mg tablet 5 mg PO BEDTIME PRN 11/03/20 01/07/21 Unknown History aripiprazole 10 mg tablet (Abilify) 10 mg PO DAILY 01/07/21 01/07/21 Unknown History docusate sodium 100 mg capsule 100 mg PO DAILY 01/07/21 01/07/21 Unknown History (Colace) ondansetron HCl 4 mg tablet 4 mg PO DAILY PRN 01/07/21 01/07/21 Unknown History (Zofran) polyethylene glycol 3350 17 17 g PO DAILY 01/07/21 01/07/21 Unknown History gram/dose oral powder (Miralax) warfarin 2 mg tablet 2 mg PO DAILY 01/07/21 01/07/21 Unknown History Physical Exam Vital Signs: Vital Signs: Last Vital Signs Temp 98.5 F 01/08/21 12:00 Pulse 95 01/08/21 12:00 Resp 18 01/08/21 12:00 BP 162/72 H 01/08/21 12:00 Pulse Ox 93 01/08/21 12:00 BMI result Body Mass Index 46.1 Neuro: Other: Alert and awake with normal spontaneity of speech fluency comprehension and affect. She was able to follow commands with no difficulty. Pupils were equal and reactive to light and extraocular muscles were intact. Visual pinedo were full to threat. Face seems symmetrical. She was able to use each arm and legs individually without difficulty. Plantars were flat. Deep tendon reflexes were absent. Results Labs CBC & Chem 7: 01/08/21 05:27 01/08/21 05:27 Labs: Short CBC 01/08/21 Range/Units 05:27 WBC 9.6 (4.8-10.8) X10*3/uL Hgb 9.0 L (12.0-16.0) g/dl Hct 32.1 L (37.0-47.0) % Plt Count 338 (160-400) X10*3/uL BMP 01/08/21 05:27 Sodium 138 Potassium 3.9 Chloride 99 Carbon Dioxide 30 H BUN 11 Creatinine 0.69 Calcium 8.8 D Urine 01/07/21 Range/Units 15:13 Urine Color YELLOW Urine Appearance HAZY Urine pH 6.5 (5.0-8.0) Ur Specific [place] 1.025 (1.005-1.025) Urine Protein 2+ H (NEG-TRACE) MG/DL Urine Glucose (UA) NEG (NEG) MG/DL Right frontal and right parietal embolic looking cortical chronic infarction of brain, which were new compared to her scan in July. Microbiology Microbiology Results: Microbiology 01/07/21 Unknown Urine Catheterized - Straight Catheter Urine Culture - Gemini l Assessment and Plan (1) Seizure disorder: Status: Acute 65 years old woman with new onset seizure disorder with chronic right parietal and frontal ischemic infarction. As far as seizure disorder is concerned, this type of stroke can result in epilepsy. I would suggest continuing him broad-spectrum antiepileptic such as levetiracetam 500-750 twice a day. Procedures Date of Service Date of Service: 01/08/21
[2021-01-08] MEDS: cefTRIAXone sodium 1 GM in 0.9 % Sodium Chloride 50 ML IV (15:49)
--- NOTE | 2021-01-08 15:53 | MHC.CM.PN ---
Pt had been at [facility] prior to [facility] admission but was ready to d/c from [facility] on 01/07 when she had a seizure and presented [facility]. Attempted to meet with pt who was exhibiting some confusion: call placed to pt's son, Albaro who is her HCP and whom pt will move in with following d/c. Per son, pt has agoraphobia and has not left her home (next to son, Albaro) in several years. Albaro has initiated [employer] services through [employer], he has a [place] lift, hospital bed, and w/c. Pt sees Dr. Aguilera. Per Albaro, [facility] had activated him as her HCP d/t her intemittent confusion. Albaro states the goals of d/c are for pt to return to home with him and [employer] supports. Will refer to [facility] for skilled visits. Pt will need BLS transport home. IMM in chart.
[2021-01-08 16:25] LABS: Glucose, Whole Blood 154 mg/dL (60-115)
[2021-01-08] MEDS: Warfarin Sodium 2 MG TABLET PO (17:45)
[2021-01-08 19:46] LABS: Glucose, Whole Blood 120 mg/dL (60-115)
[2021-01-09 04:00] VITALS: BP 133/78; PULSE 94; RESP 20; TEMP 36.3; O2SAT 94
[2021-01-09] MEDS: Pantoprazole Sodium 40 MG/10 ML VIAL IVPUSH (05:31)
[2021-01-09 06:50] LABS: MANUAL DIFF FLAG NO
[2021-01-09 06:56] LABS: Venous Blood Gas Refer to POC result
[2021-01-09 06:57] LABS: VBG Base Excess 11.7 mmol/L; VBG HCO3 39 mmol/L (22-26); VBG pCO2 67 mmHg; VBG pH 7.37 (7.32-7.43); VBG pO2 59 mmHg
[2021-01-09 07:00] LABS: Basophils Percent Auto 0.4 % (0-2); Eosinophils Absolute Auto 0.5 X10*3/uL (0.0-0.4); Eosinophils Percent Auto 5.4 % (0-4); Hematocrit 31.9 % (37.0-47.0); Hemoglobin 8.6 g/dl (12.0-16.0); Imm Gran Abs Auto 0.03 X10*3/uL (0.00-0.03); Imm Gran Pct Auto 0.4 % (0.0-0.4); Lymphocytes Absolute Auto 1.3 X10*3/uL (1.2-4.9); Lymphocytes Percent Auto 15.7 % (20-40); Mean Corpuscular Hemoglobin 22.1 pg (27.0-33.0); Mean Corpuscular Volume 81.8 fL (80.0-98.0); Mean Platelet Volume 8.6 fL (9.4-12.3); Monocytes Absolute Auto 0.9 X10*3/uL (0.1-1.2); Monocytes Percent Auto 10.8 % (2-11); Neutrophils Absolute Auto 5.7 x10*3/uL (2.0-8.3); Neutrophils Percent Auto 67.3 % (45-73); Platelet Count 292 X10*3/uL (160-400); Red Cell Distribution Width 16.7 % (11.0-16.0); White Blood Count 8.4 X10*3/uL (4.8-10.8)
[2021-01-09 07:02] LABS: INTERNATIONAL NORM RATIO 3.1 (0.9-1.1); Prothrombin Time 35.8 SEC (9.9-13.0)
[2021-01-09 07:04] LABS: Partial Thromboplastin Time 40.3 SEC (24.1-38.0)
[2021-01-09 07:18] LABS: Anion Gap 10 (12-20); Blood Urea Nitrogen 11 mg/dL (9-16); Calcium 8.7 mg/dL (8.4-10.2); Carbon Dioxide 33 mmol/L (22-29); Chloride 101 mmol/L (96-108); Creatinine Clr Calc Pharmacy 101.1; Estimated Glomerular Filt Rate > 60; Glucose Random 113 mg/dL (60-115); Phosphorus 3.8 mg/dL (2.7-4.5); Potassium 4.1 mmol/L (3.3-5.1); Sodium 140 mmol/L (135-145)
[2021-01-09 08:00] VITALS: BP 124/62; PULSE 86; RESP 19; TEMP 36.6; O2SAT 94
[2021-01-09 08:06] LABS: Glucose, Whole Blood 104 mg/dL (60-115)
[2021-01-09] MEDS: levETIRAcetam 500 MG TABLET PO (10:22)
[2021-01-09] MEDS: Furosemide 20 MG TABLET PO (10:23)
[2021-01-09] MEDS: Phenytoin Sodium 100 MG/2 ML VIAL IVPUSH (10:23)
[2021-01-09] MEDS: Acetaminophen 325 MG TABLET 650 MG PO (10:23)
--- NOTE | 2021-01-09 11:06 | PM.DS ---
DS: Providers Provider Date of Service: 01/09/21 Date of admission: 01/07/21 18:12 Primary care physician: Lauren Aguilera MD Consults: 01/08/21 10:37 Consult to Neurology Routine Consulting Provider: [facility] Reason for consultation: Witnessed seizure/status epilepticus for your eval and rec. 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 presented with focal than generalized seizures in status epilepticus involving the left side of her body 1st before generalize Ng consistent with the previous area of infarct and despite being on Coumadin no evidence of hemorrhage she the briefly responded to extensive doses of IV Ativan to a total of 6 mg and then when she broke through again she was paralyzed sedated intubated and then loaded with 1.5 g of IV Dilantin and at this point we stop the propofol and we are awaiting her awakening once the Ativan wears off if mental status is appropriate and she can protect airway with good cognitive function and we will extubate Hospital course The patient was admitted to the ICU after being intubated in the emergency for presentation with seizure that did not breakdown with Ativan and broke into status epilepticus. The patient was sedated and paralyzed and placed on ventilator brought to ICU where she was monitored overnight. Loaded with Dilantin and she was extubated after few hours. Transferred to the medical floor the same day and she did not have any more seizures. CT scan of the brain was negative for any acute findings. Evaluated by Neurology who recommended starting Keppra 500 mg twice daily. Noticed to have dirty urine. Treated as UTI with ceftriaxone. to continue Ceftin for 3 more days to follow-up with Neurology as outpatient. Time Spent with Patient Time attestation: Total time spent providing and/or coordinating discharge services: Discharge coordination time: Greater than 30 minutes Quality: Stroke Does the patient have a stroke diagnosis?: No Physical Exam Vital Signs: Vital Signs: Last Vital Signs Temp 97.9 F 01/09/21 08:00 Pulse 86 01/09/21 08:00 Resp 19 01/09/21 08:00 BP 124/62 01/09/21 08:00 Pulse Ox 94 01/09/21 08:00 BMI result Body Mass Index 46.1 Const: Other: Constitutional : Alert, oriented, not in distress Neck : Normal inspection, Supple Cardiovascular : RRR, S1 S2, no lower extremity edema Respiratory : Good bilateral air entry, no crackles, wheezes or rhonchi, on oxygen supplement Gastrointestinal: soft, lax, Normal bowel sounds, Non tender Skin : Warm, Dry Neurological : Alert & oriented x3, left-sided hemiparesis DS: Data Data Completed and Pending Labs on day of discharge: Laboratory Results - last 24 hr 01/08/21 01/08/21 01/08/21 11:14 16:14 19:41 WBC RBC Hgb Hct MCV MCH MCHC RDW Plt Count MPV Immature Gran % (Auto) Neut % (Auto) Lymph % (Auto) [place] % (Auto) Eos % (Auto) Baso % (Auto) Lymph # (Auto) [place] # (Auto) Eos # (Auto) Baso # (Auto) Abs Immat Gran (auto) Absolute Neuts (auto) Absolute Nucleated RBC Nucleated RBC % (auto) PT INR APTT VBG pH VBG pCO2 VBG pO2 VBG HCO3 VBG O2 Saturation VBG Base Excess Sodium Potassium Chloride Carbon Dioxide Anion Gap BUN Creatinine Estim Creat Clear Calc Estimated GFR POC Glucose 105 154 H 120 H Random Glucose Calcium Phosphorus Magnesium 01/09/21 01/09/21 01/09/21 06:45 06:45 06:45 WBC 8.4 RBC 3.90 L Hgb 8.6 L Hct 31.9 L MCV 81.8 MCH 22.1 L MCHC 27.0 L RDW 16.7 H Plt Count 292 MPV 8.6 L Immature Gran % (Auto) 0.4 Neut % (Auto) 67.3 Lymph % (Auto) 15.7 L [place] % (Auto) 10.8 Eos % (Auto) 5.4 H Baso % (Auto) 0.4 Lymph # (Auto) 1.3 [place] # (Auto) 0.9 Eos # (Auto) 0.5 H Baso # (Auto) 0.0 Abs Immat Gran (auto) 0.03 Absolute Neuts (auto) 5.7 Absolute Nucleated RBC 0.000 Nucleated RBC % (auto) 0.0 PT 35.8 H INR 3.1 H APTT 40.3 H VBG pH VBG pCO2 VBG pO2 VBG HCO3 VBG O2 Saturation VBG Base Excess Sodium 140 Potassium 4.1 Chloride 101 Carbon Dioxide 33 H Anion Gap 10 L BUN 11 Creatinine 0.73 Estim Creat Clear Calc 101.1 Estimated GFR > 60 POC Glucose Random Glucose 113 Calcium 8.7 Phosphorus 3.8 Magnesium 2.0 01/09/21 01/09/21 06:49 08:01 WBC RBC Hgb Hct MCV MCH MCHC RDW Plt Count MPV Immature Gran % (Auto) Neut % (Auto) Lymph % (Auto) [place] % (Auto) Eos % (Auto) Baso % (Auto) Lymph # (Auto) [place] # (Auto) Eos # (Auto) Baso # (Auto) Abs Immat Gran (auto) Absolute Neuts (auto) Absolute Nucleated RBC Nucleated RBC % (auto) PT INR APTT VBG pH 7.37 VBG pCO2 67 VBG pO2 59 VBG HCO3 39 H VBG O2 Saturation 85.0 VBG Base Excess 11.7 Sodium Potassium Chloride Carbon Dioxide Anion Gap BUN Creatinine Estim Creat Clear Calc Estimated GFR POC Glucose 104 Random Glucose Calcium Phosphorus Magnesium Discharge Plan Discharge Patient Disposition: Home Health Service Discharge Diagnosis: Seizures UTI Referrals: juan alberto [Other] - 1 Week Po,Lauren Michael MD [Primary Care Provider] - 1 Week Discharge Medications: New levetiracetam 500 mg Tablet 500 mg PO BID 30 Days Qty: 60 RF: 0 cefuroxime axetil 250 mg tablet 250 mg PO BID Qty: 6 RF: 0 Continued albuterol sulfate [ProAir HFA] 90 mcg/actuation Hfa Aerosol Inhaler 2 puff INHALATION Q4-6H PRN (Reason: Wheezing) RF: 0 melatonin 5 mg Tablet 5 mg PO BEDTIME PRN (Reason: Insomnia) RF: 0 furosemide [Lasix] 20 mg tablet 20 mg PO QAM Qty: 30 RF: 0 warfarin 2 mg Tablet 2 mg PO DAILY RF: 0 aripiprazole [Abilify] 10 mg Tablet 10 mg PO DAILY RF: 0 ondansetron HCl [Zofran] 4 mg Tablet 4 mg PO DAILY PRN (Reason: Nausea) RF: 0 docusate sodium [Colace] 100 mg Capsule 100 mg PO DAILY RF: 0 polyethylene glycol 3350 [Miralax] 17 gram/dose Powder 17 g PO DAILY RF: 0 Discharge Orders: Discharge Order (Routine); Ordered 01/09/21 Ordered By: Cele Greenwood Diet: advance to usual diet Activity on Discharge: As tolerated Stand Alone Forms: Patient Portal Discharge page Care Plan Goals: Read below Health Concerns: Read below Plan of Treatment: Read below Assessment: You were admitted to the ICU after having an episode of prolonged seizure. You were intubated in the emergency and monitored overnight in the ICU. Transferred to medical floors after removing the breathing machine. No recurrence of seizure happened S3 were covered with medications. You were evaluated by neurologist who recommended to start Keppra twice daily and to follow-up as outpatient. You were noticed to have urine infection treated with IV antibiotics. continue Ceftin as prescribed To follow-up with Dr. Romeo office as outpatient for seizure follow-up Restart warfarin tomorrow and follow INR as scheduled Discharge Date/Time: 01/09/21 13:59
[2021-01-09 11:12] VITALS: BP 140/65; PULSE 85; RESP 19; TEMP 36.9; O2SAT 92
--- NOTE | 2021-01-09 11:21 | P.F2F_ITS ---
Service Date Service Date: 01/09/21 Encounter Date of encounter: 01/09/21 Reasons for Services Reason for detention: medication management and teach disease management Homebound: Leaving the home is medically contraindicated at this time without the asist of a device and/or another person due th the listed conditions above and below. Certification: Based on the above findings, I certify that this patient is confined to the home and needs intermittent detention care, physical therapy and/or speech therapy, or continues to need occupational therapy. The patient is under my care, and I have initiated the establishment of the plan of care. The patient will be followed by a physician who will periodically review the plan of care.
[2021-01-09 11:32] LABS: Glucose, Whole Blood 153 mg/dL (60-115)
--- NOTE | 2021-01-09 11:53 | MHC.SL.SWA ---
Speech Pathologist Impression: Risk of Aspiration Risk of Aspiration Due to: Hx of Recent Extubation Reduced Cognition Dysphasia Diet Status: Upgrade Liquid Consistency and Strategies for Safe Swallow: Liquid Intake Recommendation: Thin Liquid Intake Strategies: No Straws Solid Food Consistency: Dietary Recommendations: Regular Additional Modifications to Solid Foods: Oral Medication Intake: Whole with Liquid Compensatory Strategies and Precautions to be Taken for Safe Swallow: Sitting Upright (90 deg) No Straw Liquids from Cup Alternate Liquids/Solids Supervision While Eating and Drinking for Safe Swallow: Intermittent Supervision Foods to Avoid: Swallowing Recommended Treatments: Compens. Strategy Educat. Recommendation for Speech: Discharge from Inpatient Speech Therapy Comment: 01/09: Pt seen this am for follow-up visit. Pt tolerating current diet of thin liquids/regular well. Pt observed taking thin liquid and solid (andie cracker) this morning. Pt took serial swallow from cup of thin liquid, with all phases of swallow WNL. Pt observed taking pills with liquid w/no incident. Pt took chewed hard solid thoroughly, with timely swallow and good clearance of oral cavity. Pt reported having Cereal this morning and Juice with breakfast, with not difficulties reported. Recommend Discharge from Speech at this time. Frequency/Duration: Date Range for Service Req: Timeline to reassess: Slip Box Changer Clinican/Clinical Fellow: No Supervisory Statement: I have reviewed and agree with the student/clinical fellow's documentation: N/A Speech Language Pathologist: Fiona Coello M.A., CCC-SCRUBBING MACHINE OPERATOR
== END 2021-01-09 13:59 | disposition home health service (06) | DRG 57 ==
LOC: HO.ED 15:57 → HO.EDOVER 18:17 → HO.ICU 20:31 → HO.IMC 01-08 11:36
PROVIDERS: Physician Assistant; Admitting Provider Internal Medicine Cardiovascular Disease; Emergency Provider Emergency Medicine; PCP Internal Medicine; Visit Provider Student in an Organized Health Care Education/Training Program
DX: I69.398 Other sequelae of cerebral infarction (principal); Z68.42 Body mass index [BMI] 45.0-49.9, adult; N39.0 Urinary tract infection, site not specified; E66.2 Morbid (severe) obesity with alveolar hypoventilation; I69.354 Hemiplegia and hemiparesis following cerebral infarction affecting left non-dominant side; G40.901 Epilepsy, unspecified, not intractable, with status epilepticus; E11.65 Type 2 diabetes mellitus with hyperglycemia; I10 Essential (primary) hypertension; Z20.822 Contact with and (suspected) exposure to COVID-19; Z79.01 Long term (current) use of anticoagulants; Z79.899 Other long term (current) drug therapy
CPT/HCPCS: 36415; 70450; 71045; 80048; 80076; 80307; 81001; 82803; 82947; 83690; 83735; 83880; 84100; 84484; 85025; 85610; 85730; 87086; 87635; 92610; 93005; 94002; 94003; 96365; 96366; 96372; 96375; 99284; 99291; J0696; J2060; J2250

== ENCOUNTER 2021-01-21 12:42 | Emergency (ER) | payer MEDICARE, OTHER, MEDICAID, SELFPAY ==
[2021-01-21 12:55] VITALS: BP 140/56; BP 150/78; PULSE 75; PULSE 90; RESP 16; TEMP 37.3; O2SAT 97; O2SAT 98; BMI 52.0
[2021-01-21 12:59] VITALS: PULSE 73
--- NOTE | 2021-01-21 13:34 | ECG_ITS ---
Test Reason : CHEST PAIN Blood Pressure : / mmHG Vent. Rate : 067 BPM Atrial Rate : 067 BPM P-R Int : 150 ms QRS Dur : 090 ms QT Int : 410 ms P-R-T Axes : 000 050 022 degrees QTc Int : 433 ms Normal sinus rhythm Normal ECG When compared with ECG of 07-JAN-2021 14:47, Vent. rate has decreased BY 34 BPM Referred By: Ama Ruiz Electronically Signed By:DECLAN MCCARTY MD
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
[2021-01-21 13:57] VITALS: BP 140/56; PULSE 75; O2SAT 98
[2021-01-21 14:00] VITALS: BP 134/61; PULSE 67; RESP 17; O2SAT 98
[2021-01-21 14:48] LABS: MANUAL DIFF FLAG NO
[2021-01-21 14:51] LABS: Appearance Urine CLOUDY; Color Urine YELLOW; Glucose Urine UA NEG (NEG); Leukocyte Esterase Urine 2+ (NEG); Nitrite Urine POS (NEG); Specific Gravity - Urine 1.025 (1.005-1.025); UACC Culture Trigger YES; Urine Blood 3+ (NEG); Urine Ketones NEG (NEG); Urine Protein 2+ MG/DL (NEG-TRACE)
[2021-01-21 14:53] LABS: Basophils Percent Auto 0.5 % (0-2); Eosinophils Absolute Auto 0.1 X10*3/uL (0.0-0.4); Eosinophils Percent Auto 1.8 % (0-4); Hematocrit 35.3 % (37.0-47.0); Hemoglobin 9.6 g/dl (12.0-16.0); Imm Gran Abs Auto 0.01 X10*3/uL (0.00-0.03); Imm Gran Pct Auto 0.3 % (0.0-0.4); Lymphocytes Absolute Auto 0.7 X10*3/uL (1.2-4.9); Lymphocytes Percent Auto 18.1 % (20-40); Mean Corpuscular HGB Conc 27.2 g/dl (31.0-35.0); Mean Corpuscular Hemoglobin 22.5 pg (27.0-33.0); Mean Corpuscular Volume 82.7 fL (80.0-98.0); Mean Platelet Volume 8.5 fL (9.4-12.3); Monocytes Absolute Auto 0.6 X10*3/uL (0.1-1.2); Neutrophils Absolute Auto 2.5 x10*3/uL (2.0-8.3); Neutrophils Percent Auto 63.3 % (45-73); Platelet Count 240 X10*3/uL (160-400); Red Blood Count 4.27 X10*6/uL (4.20-5.50); Red Cell Distribution Width 17.2 % (11.0-16.0); White Blood Count 3.9 X10*3/uL (4.8-10.8)
[2021-01-21 14:57] LABS: Squamous Epithelial Cell Urine 1+ /LPF
--- NOTE | 2021-01-21 14:58 | MHC.CM.ED ---
Addendum entered by Kelly Caceres 01/21/21 15:49: Patient's Covid swab is positive. Original Note: Received case management consult from Dr Ruiz. Patient came to ER due to AMS. Work up essentially negative. Patient was recently d/c'd home with son from [facility]. Patient states she doesn't feel safe at home and wants to return to a [place] [facility], but not [facility]. Referral broadcasted within 20 miles of patient's home. No HCP on file. Per Suzy, they don't have one on file because she was her own person. Patient received J&J vacccine on 09/12/20. Physical therapy eval completed. detention care is recommended. Continue to monitor for d/c needs.
[2021-01-21 14:59] LABS: Bacteria Urine 3+ /LPF; RBC Urine 30-49 /HPF (0)
[2021-01-21 15:02] LABS: Uric Acid Crystals Urine 1+ /LPF
[2021-01-21 15:06] LABS: Alanine Aminotransferase 24 U/L (0-31); Alkaline Phosphatase 86 U/L (39-117); Anion Gap 10 (12-20); Aspartate Amino Transferase 42 U/L (5-31); Bilirubin Direct < 0.2 mg/dL (0.0-0.5); Bilirubin Total 0.2 mg/dL (0.0-1.0); Blood Urea Nitrogen 10 mg/dL (9-16); Calcium 8.6 mg/dL (8.4-10.2); Carbon Dioxide 31 mmol/L (22-29); Chloride 101 mmol/L (96-108); Creatinine Clr Calc Pharmacy 88.1; Estimated Glomerular Filt Rate > 60; Glucose Random 97 mg/dL (60-115); Potassium 3.6 mmol/L (3.3-5.1); Sodium 138 mmol/L (135-145); Total Protein 6.2 g/dL (6.5-8.0)
[2021-01-21 15:10] LABS: Troponin-I High Sensitivity 11.7 ng/L (<3.5-17.0)
[2021-01-21 15:31] LABS: Influenza A PCR NEGATIVE (Negative); Influenza B PCR NEGATIVE (Negative); Resp Syncy Virus RNA Qual PCR NEGATIVE (Negative); SARS COV2 PCR INHOUSE POSITIVE (Negative)
[2021-01-21 16:00] VITALS: BP 148/53; PULSE 70; RESP 22; O2SAT 95
--- NOTE | 2021-01-21 17:44 | PC.NURSE ---
patient UA positive, ? uti. patient has hernandez in place. per dr singh, no need for treatment with hernandez in place, patient has no urinary symptoms.
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
--- NOTE | 2021-01-21 19:19 | PHA.MEDREC ---
med rec complete, no issues Pharmacy Consult ? Medication Reconciliation Pharmacy has completed the medication reconciliation.
[2021-01-21 20:36] VITALS: BP 148/59; PULSE 71; RESP 18; TEMP 37.4; O2SAT 95
[2021-01-22 00:58] VITALS: PULSE 68; RESP 16
[2021-01-22 06:20] VITALS: PULSE 73; RESP 16
--- NOTE | 2021-01-22 09:48 | MHC.CM.ED ---
Patient remains in ER. Copy of HCP obtained from [facility]. [facility] is only facility within 20 miles that is still reviewing to see if they have a Covid bed to offer. Continue to monitor for d/c needs.
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
[2021-01-22] MEDS: Furosemide 20 MG TABLET PO (11:00)
[2021-01-22] MEDS: levETIRAcetam 500 MG TABLET PO (11:01)
[2021-01-22 11:02] VITALS: BP 139/51; PULSE 70; RESP 20; TEMP 37.3; O2SAT 92
[2021-01-22] MEDS: Acetaminophen 325 MG TABLET 650 MG PO (12:13)
[2021-01-22 12:29] LABS: Hematocrit 33.7 % (37.0-47.0); Hemoglobin 9.1 g/dl (12.0-16.0); Mean Corpuscular Volume 81.4 fL (80.0-98.0); Mean Platelet Volume 8.3 fL (9.4-12.3); Platelet Count 214 X10*3/uL (160-400); Red Blood Count 4.14 X10*6/uL (4.20-5.50); Red Cell Distribution Width 16.9 % (11.0-16.0); White Blood Count 2.9 X10*3/uL (4.8-10.8)
[2021-01-22 12:34] LABS: INTERNATIONAL NORM RATIO 1.1 (0.9-1.1); Prothrombin Time 12.3 SEC (9.9-13.0)
--- NOTE | 2021-01-22 14:09 | MHC.CM.ED ---
Addendum entered by Kelly Caceres 01/22/21 14:11: Elena of [facility] made aware via telephone at [phone] Ext [phone]. Original Note: [facility] able to offer a bed. Patient's son/HCP, Albaro aware and accepts bed. Patient can leave at 3pm. [facility] BLS booked. Med nec with chart. Patient, son Yoly Irvin RN and Dr Miller aware. Continue to monitor for d/c needs.
[2021-01-22 15:08] VITALS: BP 111/39; PULSE 67; RESP 20; TEMP 36.9; O2SAT 96
--- NOTE | 2021-01-22 15:26 | MHC.CM.ED ---
CM met with patient and explained that she would be going to [facility] by ambulance around 4pm. Pt is very upset. States she has been here for 5 days and has not received any of her medications. Pt wants to speak with someone in charge. Pt is clearly confused, as she has only been in the ED since yesterday. Clinical Coordinator aware. Tabitha has already spoken with this patient. Pt is continually asking for nursing and CM to make compliants. CM will follow for d/c needs.
[2021-01-22] MEDS: Enoxaparin Sodium 120 MG/0.8 ML SYRINGE SUBCUT (15:49)
[2021-01-22 15:54] VITALS: BP 155/51; PULSE 70; RESP 19; TEMP 36.7; O2SAT 94
== END 2021-01-22 17:36 | disposition skilled nursing facility (03) ==
PROVIDERS: Physician Assistant; Emergency Provider Emergency Medicine; PCP Internal Medicine
DX: U07.1 COVID-19 (principal); N39.0 Urinary tract infection, site not specified; F40.00 Agoraphobia, unspecified; F68.8 Other specified disorders of adult personality and behavior; E11.9 Type 2 diabetes mellitus without complications; I11.0 Hypertensive heart disease with heart failure; I50.9 Heart failure, unspecified; J44.9 Chronic obstructive pulmonary disease, unspecified; Z99.81 Dependence on supplemental oxygen; Z86.718 Personal history of other venous thrombosis and embolism; Z79.01 Long term (current) use of anticoagulants
CPT/HCPCS: 0241U; 36415; 80048; 80076; 81001; 84484; 85025; 85027; 85610; 85730; 87086; 93005; 96372; 97162; 99285; J1650